=== PATIENT | female | born 1950 | race Caucasian/White ===

== ENCOUNTER → 2016-05-04 | Outpatient (REF) | payer MEDICARE, OTHER ==
[2016-05-04 13:08] LABS: ANION GAP 11 MEQ/L (8-16); BLOOD UREA NITROGEN 23 MG/DL (7-18); CALCIUM LEVEL 8.4 MG/DL (8.8-10.2); CARBON DIOXIDE LEVEL 26 MEQ/L (21-32); CHLORIDE LEVEL 107 MEQ/L (98-107); CHOLESTEROL LEVEL 212 MG/DL (<200); CREATININE FOR GFR 0.65 MG/DL (0.55-1.02); GLOMERULAR FILTRATION RATE > 60.0 (>45); GLUCOSE, FASTING 86 MG/DL (80-110); SODIUM LEVEL 144 MEQ/L (136-145); TRIGLYCERIDES LEVEL 143 MG/DL (<150)
== END ==
LOC: M LABDRAW1 11:29
PROVIDERS: ATTEND Nurse Practitioner Family
DX: I10 Essential (primary) hypertension (principal); E78.4 Other hyperlipidemia; E55.9 Vitamin D deficiency, unspecified

== ENCOUNTER → 2016-10-03 | Outpatient (CLI) | payer MEDICARE, OTHER ==
--- NOTE | 2016-10-03 11:45 | REP ---
Pelvic ultrasound, endovaginal imaging: The patient indicates she has had a hysterectomy at age 28. There is no identifiable uterus. Right ovary: The right ovary is normal size measuring 4.2 x 3.0 x 3.7 cm. There is an echogenic focus with acoustic shadowing compatible with a right ovarian calcification. There are a few small follicles. There is vascular flow in the right ovary with the Doppler resistive index of the intraparenchymal arteries measuring 0.62. Left ovary: The left ovary is normal size measuring 3.2 x 1.8 x 2.6 cm. There is a 1.8 cm left ovarian cyst containing a septation. There is vascular flow in the left over the Doppler resistive index of the intraparenchymal arteries measuring 0.62. There is no free fluid in the pelvis.
--- NOTE | 2016-10-03 11:48 | REP ---
Bladder ultrasound: The distended urinary bladder contains 580 milliliters of fluid. The postvoid bladder contains 54 ml fluid. The postvoid residual is 9.3% No bladder masses or polyps are identified. With color Doppler assessment there are bilateral ureteral jets into the urinary bladder.
== END ==
LOC: M WHC 09:01
PROVIDERS: ATTEND Obstetrics & Gynecology
DX: Z12.31 Encounter for screening mammogram for malignant neoplasm of breast (principal); Z78.0 Asymptomatic menopausal state; N81.11 Cystocele, midline; N81.6 Rectocele; R35.0 Frequency of micturition; M89.9 Disorder of bone, unspecified; Z92.23 Personal history of estrogen therapy
CPT/HCPCS: 76830; 76856; 76857; 77080; G0202

== ENCOUNTER → 2016-10-03 | Outpatient (CLI) | payer MEDICARE, OTHER ==
--- NOTE | 2016-10-03 11:23 | REPMRS ---
Patient History The patient states she had a clinical breast exam in 06/2016. Patient is postmenopausal. Family history of prostate cancer in brother at age 77. Took hormonal contraceptives for 2 years. Taking estrogen for 13 years. Digital Woman Screen Mammo: October 03, 2016 - Exam #: [id number] Bilateral CC and MLO view(s) were taken. Technologist: Guadalupe Evans Technologist Prior study comparison: July 16, 2013, bilateral bilat screen digital mammo, performed at [facility] ([facility]). July 10, 2012, bilateral bilat screen digital mammo, performed at [facility] ([facility]). FINDINGS: There are scattered fibroglandular densities. There has been no change in the appearance of the mammogram from the prior studies. There is a mild amount of residual fibroglandular tissue which is fairly symmetric. There is no interval development of dominant mass, architectural distortion, or clustered microcalcification suggestive of malignancy. ASSESSMENT: BI-RADS/ACR category 1 mammogram. Negative. Recommendation Routine screening mammogram in 1 year (for women over age 40). This mammogram was interpreted with the aid of an FDA-approved computer-aided dectection system. Electronically Signed By: John Randolph MD 10/03/16 [id number]
== END ==
LOC: M WHC 10:01
PROVIDERS: ATTEND Nurse Practitioner Family
DX: Z12.31 Encounter for screening mammogram for malignant neoplasm of breast (principal); Z78.0 Asymptomatic menopausal state; Z92.23 Personal history of estrogen therapy

== ENCOUNTER → 2016-10-03 | Outpatient (CLI) | payer MEDICARE, OTHER ==
--- NOTE | 2016-10-05 14:20 | DEXA ---
AP SPINE L1 - L4 1.096 -0.7 0.9 LT FEMUR TOTAL 0.980 -0.2 1.0 RT FEMUR TOTAL 0.952 -0.4 0.8 TOTAL BODY TOTAL OTHER DUAL FEMUR FRAX* ASSESSMENT Risk factors: Not performed. 10 year probability of fracture Major osteoporotic fracture % Hip fracture % COMMENTS: Normal bone densitometry of the spine and hips. The decreased density of the spine does not represent a significant change. The increased density of the left hip does not represent a significant change. The increased density of the right hip does not represent a significant change. The density of the spine is increased 5.8% since the initial exam on 06/21/2005. The spine density has decreased 0.5% since the most recent exam on 01/12/2015. The density of the left hip has increased 1.7% since the initial exam on 2005. The density of the left hip has increased 0.4% since the most recent exam on . The density of the right hip has increased 2.4% since the initial exam on 2005. The density of the right hip has increased 1.9% since the most recent exam on . FOLLOW-UP: Recommendation for the next bone density exam: 5 years. DARLINED
== END ==
LOC: M WHC 08:57
PROVIDERS: ATTEND Nurse Practitioner Family
DX: M89.9 Disorder of bone, unspecified (principal)

== ENCOUNTER → 2017-03-25 | Outpatient (CLI) | payer MEDICARE, OTHER | LOC: M WUC 15:39 | DX: M19.071 Primary osteoarthritis, right ankle and foot (principal); S93.421A Sprain of deltoid ligament of right ankle, initial encounter; X58.XXXA Exposure to other specified factors, initial encounter; Y92.9 Unspecified place or not applicable | CPT/HCPCS: 73610 ==

== ENCOUNTER → 2017-05-18 | Outpatient (REF) | payer MEDICARE, OTHER | LOC: M LAB REF 17:18 | DX: D48.5 Neoplasm of uncertain behavior of skin (principal) | CPT/HCPCS: 88305 ==

== ENCOUNTER 2017-06-19 22:03 | Observation (INO) | payer MEDICARE, OTHER ==
[2017-06-19] MEDS ORDERED: ISOVUE-370 76% 100ML VIAL (Q9967) As Ordered ×2 (23:07)
[2017-06-19 23:18] LABS: BASO % 0.2 % (0.0-1.0); EOS # 0.1 10^3/uL (0.0-0.50); EOS % 0.6 % (0.0-3.0); HEMATOCRIT 41.1 % (36.0-47.0); HEMOGLOBIN 13.5 g/dl (12.0-15.5); IMMATURE GRANULOCYTE % 0.8 % (0-3.0); LYMPH # 1.5 10^3/uL (1.5-4.5); LYMPH % 13.6 % (24.0-44.0); MEAN CORPUSCULAR HEMOGLOBIN 30.4 pg (27.0-33.0); MEAN CORPUSCULAR HGB CONC 32.8 g/dl (32.0-36.5); MEAN CORPUSCULAR VOLUME 92.6 fl (80.0-96.0); MONO # 0.5 10^3/uL (0.0-0.8); MONO % 4.3 % (0.0-5.0); NEUTROPHILS # 8.7 10^3/uL (1.8-7.7); NEUTROPHILS % 80.5 % (36.0-66.0); PLATELET COUNT, AUTOMATED 277 10^3/uL (150-450); RED BLOOD COUNT 4.44 10^6/uL (4.00-5.40); RED CELL DISTRIBUTION WIDTH 13.4 % (11.5-14.5); WHITE BLOOD COUNT 10.8 10^3/uL (4.0-10.0)
[2017-06-19] MEDS: METOCLOPRAMIDE INJ 10MG/2ML VIAL (J2765) IV ×2 (23:20)
[2017-06-19] MEDS: NS 500 ML IV ×2 (23:20)
[2017-06-19] MEDS ORDERED: MORPHINE 4 MG/ML 1ML VIAL/SYRINGE (J2270) As Ordered ×2 (23:40)
[2017-06-19 23:46] LABS: ALBUMIN 3.5 GM/DL (3.2-5.2); ALBUMIN/GLOBULIN RATIO 1.03 (1.00-1.93); ALKALINE PHOSPHATASE 93 U/L (45-117); ALT/SGPT 15 U/L (12-78); ANION GAP 5 MEQ/L (8-16); AST/SGOT 16 U/L (7-37); BILIRUBIN,DIRECT 0.1 MG/DL (0.0-0.2); BILIRUBIN,TOTAL 0.3 MG/DL (0.2-1.0); BLOOD UREA NITROGEN 21 MG/DL (7-18); CALCIUM LEVEL 8.9 MG/DL (8.8-10.2); CARBON DIOXIDE LEVEL 31 MEQ/L (21-32); CHLORIDE LEVEL 108 MEQ/L (98-107); CREATININE FOR GFR 0.72 MG/DL (0.55-1.30); GLOMERULAR FILTRATION RATE > 60.0 (>45); GLUCOSE, FASTING 103 MG/DL (70-100); LIPASE 134 U/L (73-393); POTASSIUM SERUM 3.7 MEQ/L (3.5-5.1); SODIUM LEVEL 144 MEQ/L (136-145); TOTAL PROTEIN 6.9 GM/DL (6.4-8.2)
[2017-06-19] MEDS: GASTROGRAFIN SOLUTION 30ML PO ×4 (23:48→23:52)
[2017-06-19] MEDS: MORPHINE 4 MG/ML 1ML VIAL/SYRINGE (J2270) IV ×2 (23:52)
[2017-06-20] MEDS: GASTROGRAFIN SOLUTION 30ML PO ×2 (00:15)
[2017-06-20] MEDS: MORPHINE 4 MG/ML 1ML VIAL/SYRINGE (J2270) IV ×8 (00:42→18:56)
[2017-06-20 01:06] LABS: APPEARANCE, URINE CLEAR (CLEAR); BACTERIA, URINE AUTO 1+ (NEGATIVE); BILIRUBIN, URINE AUTO NEGATIVE (NEGATIVE); BLOOD, URINE BLOOD NEGATIVE (NEGATIVE); COLOR, URINE YELLOW (YELLOW); GLUCOSE, URINE (UA) AUTO NEGATIVE (NEGATIVE); KETONE, URINE AUTO NEGATIVE (NEGATIVE); LEUKOCYTE ESTERASE, URINE AUTO NEGATIVE (NEGATIVE); MUCUS, URINE SMALL (NEGATIVE); NITRITE, URINE AUTO NEGATIVE (NEGATIVE); PROTEIN, URINE AUTO NEGATIVE (NEGATIVE); RBC, URINE AUTO 2 /HPF (0-3); SPECIFIC GRAVITY URINE AUTO 1.011 (1.002-1.035); SQUAMOUS EPITHELIAL CELL UR AU 0 /HPF (0-6); UROBILINOGEN, URINE AUTO 0.2 mg/dL (0.0-2.0); WBC, URINE AUTO 3 /HPF (0-3)
[2017-06-20] MEDS: NS 1,000 ML IV ×6 (04:17→14:25)
[2017-06-20] MEDS: ONDANSETRON 4 MG TAB (S0181) PO ×2 (05:37)
[2017-06-20] MEDS: ENOXAPARIN 40 MG/0.4 ML SYRINGE (J1650) SC ×2 (08:43)
[2017-06-20] MEDS ORDERED: MECLIZINE 25 MG TABLET PO ×2 (14:45)
[2017-06-20] MEDS: ESTRADIOL 1 MG TAB PO ×2 (16:52)
[2017-06-20] MEDS: MULTIVITAMINS/MINERALS THERAP 1 TAB PO ×2 (16:53)
[2017-06-20] MEDS: SIMETHICONE 80 MG CHEW TAB PO ×2 (20:20)
[2017-06-20] MEDS: VITAMIN D 1,000 INTERNATIONAL UNITS TABLET PO ×2 (20:21)
[2017-06-20] MEDS: ACETAMINOPHEN TAB 650MG DOSE (2X325MG) PO ×2 (20:45)
[2017-06-21] MEDS: NS 1,000 ML IV ×4 (02:36→18:45)
[2017-06-21] MEDS: ACETAMINOPHEN TAB 650MG DOSE (2X325MG) PO ×4 (02:50→11:44)
[2017-06-21] MEDS: SIMETHICONE 80 MG CHEW TAB PO ×4 (05:16→07:42)
[2017-06-21] MEDS: ONDANSETRON 4 MG TAB (S0181) PO ×2 (07:42)
[2017-06-21 07:49] LABS: HEMATOCRIT 33.8 % (36.0-47.0); MEAN CORPUSCULAR HEMOGLOBIN 30.7 pg (27.0-33.0); MEAN CORPUSCULAR HGB CONC 33.4 g/dl (32.0-36.5); MEAN CORPUSCULAR VOLUME 91.8 fl (80.0-96.0); PLATELET COUNT, AUTOMATED 217 10^3/uL (150-450); RED BLOOD COUNT 3.68 10^6/uL (4.00-5.40); RED CELL DISTRIBUTION WIDTH 13.7 % (11.5-14.5); WHITE BLOOD COUNT 9.8 10^3/uL (4.0-10.0)
[2017-06-21] MEDS: MORPHINE 4 MG/ML 1ML VIAL/SYRINGE (J2270) IV ×2 (07:56)
[2017-06-21 08:10] LABS: HEMOGLOBIN 11.3 g/dl (12.0-15.5)
[2017-06-21 08:55] LABS: ALBUMIN 2.6 GM/DL (3.2-5.2); ALBUMIN/GLOBULIN RATIO 0.76 (1.00-1.93); ALKALINE PHOSPHATASE 69 U/L (45-117); ALT/SGPT 12 U/L (12-78); ANION GAP 5 MEQ/L (8-16); AST/SGOT 37 U/L (7-37); BILIRUBIN,TOTAL 1.5 MG/DL (0.2-1.0); BLOOD UREA NITROGEN 15 MG/DL (7-18); CALCIUM LEVEL 7.9 MG/DL (8.8-10.2); CARBON DIOXIDE LEVEL 23 MEQ/L (21-32); CHLORIDE LEVEL 113 MEQ/L (98-107); CREATININE FOR GFR 0.42 MG/DL (0.55-1.30); GLOMERULAR FILTRATION RATE > 60.0 (>45); GLUCOSE, FASTING 98 MG/DL (70-100); POTASSIUM SERUM 3.4 MEQ/L (3.5-5.1); SODIUM LEVEL 141 MEQ/L (136-145)
[2017-06-21 09:09] LABS: CK-MB VALUE MASS < 1.0 NG/ML (<3.6); CPK CREATINE PHOSPHOKINASE 43 U/L (26-192); MAGNESIUM LEVEL 2.3 MG/DL (1.8-2.4); MB/CK RELATIVE INDEX 2.32 (< OR =4); TROPONIN I < 0.02 NG/ML (< 0.10)
[2017-06-21] MEDS: ENOXAPARIN 40 MG/0.4 ML SYRINGE (J1650) SC ×2 (09:15)
[2017-06-21] MEDS: MULTIVITAMINS/MINERALS THERAP 1 TAB PO ×2 (09:15)
[2017-06-21] MEDS: ESTRADIOL 1 MG TAB PO ×2 (09:15)
[2017-06-21] MEDS: POTASSIUM CHLORIDE 10 MEQ SR TABLET PO ×2 (11:44)
[2017-06-21 12:55] LABS: ERYTHROCYTE SEDIMENTATION RATE 49 mm/hr (0-30)
[2017-06-21] MEDS: EXCEDRIN MIGRAINE TABLET PO ×2 (16:35)
[2017-06-21] MEDS: VITAMIN D 1,000 INTERNATIONAL UNITS TABLET PO ×2 (21:20)
[2017-06-22] MEDS: NS 1,000 ML IV ×2 (06:38)
[2017-06-22 07:05] LABS: HEMOGLOBIN 11.1 g/dl (12.0-15.5); MEAN CORPUSCULAR HEMOGLOBIN 31.2 pg (27.0-33.0); MEAN CORPUSCULAR HGB CONC 33.6 g/dl (32.0-36.5); MEAN CORPUSCULAR VOLUME 92.7 fl (80.0-96.0); PLATELET COUNT, AUTOMATED 216 10^3/uL (150-450); RED BLOOD COUNT 3.56 10^6/uL (4.00-5.40); RED CELL DISTRIBUTION WIDTH 13.8 % (11.5-14.5)
[2017-06-22 07:30] LABS: ALBUMIN 2.6 GM/DL (3.2-5.2); ALBUMIN/GLOBULIN RATIO 0.93 (1.00-1.93); ALKALINE PHOSPHATASE 84 U/L (45-117); ALT/SGPT 10 U/L (12-78); ANION GAP 8 MEQ/L (8-16); AST/SGOT 33 U/L (7-37); BILIRUBIN,TOTAL 1.1 MG/DL (0.2-1.0); BLOOD UREA NITROGEN 9 MG/DL (7-18); CALCIUM LEVEL 7.5 MG/DL (8.8-10.2); CARBON DIOXIDE LEVEL 22 MEQ/L (21-32); CHLORIDE LEVEL 113 MEQ/L (98-107); CREATININE FOR GFR 0.33 MG/DL (0.55-1.30); GLOMERULAR FILTRATION RATE > 60.0 (>45); GLUCOSE, FASTING 68 MG/DL (70-100); POTASSIUM SERUM 3.7 MEQ/L (3.5-5.1); SODIUM LEVEL 143 MEQ/L (136-145); TOTAL PROTEIN 5.4 GM/DL (6.4-8.2)
[2017-06-22] MEDS: ENOXAPARIN 40 MG/0.4 ML SYRINGE (J1650) SC ×2 (09:40)
[2017-06-22] MEDS: ESTRADIOL 1 MG TAB PO ×2 (09:40)
[2017-06-22] MEDS: MULTIVITAMINS/MINERALS THERAP 1 TAB PO ×2 (09:40)
[2017-06-23 13:08] LABS: CARCINOEMBRYONIC ANTIGEN 2.9 NG/ML (<2.5)
[2017-06-23 15:35] LABS: CA19-9 TUMOR MARKER,CARBOHYDRA 1590.1 U/ML (<35.0)
== END 2017-06-22 14:20 | disposition home or self-care (01) ==
LOC: M ED INP 22:04 → M PED 06-20 05:47 → M ED 22:03
DX: R19.09 Other intra-abdominal and pelvic swelling, mass and lump (principal); R10.9 Unspecified abdominal pain; R11.2 Nausea with vomiting, unspecified; I10 Essential (primary) hypertension; E78.00 Pure hypercholesterolemia, unspecified; I08.0 Rheumatic disorders of both mitral and aortic valves; H83.09 Labyrinthitis, unspecified ear; Z85.828 Personal history of other malignant neoplasm of skin; M85.80 Other specified disorders of bone density and structure, unspecified site; E55.9 Vitamin D deficiency, unspecified; Z88.1 Allergy status to other antibiotic agents; Z88.8 Allergy status to other drugs, medicaments and biological substances; Z88.0 Allergy status to penicillin; Z91.018 Allergy to other foods; Z79.899 Other long term (current) drug therapy
CPT/HCPCS: J2270

== ENCOUNTER → 2017-08-09 | Outpatient (CLI) | payer MEDICARE, OTHER | LOC: M RAD 07:00 | DX: R19.03 Right lower quadrant abdominal swelling, mass and lump (principal) | CPT/HCPCS: 76857 ==

== ENCOUNTER → 2017-09-14 | Outpatient (REF) | payer MEDICARE, OTHER | LOC: M LAB REF 17:15 | DX: L08.9 Local infection of the skin and subcutaneous tissue, unspecified (principal) | CPT/HCPCS: 87186 ==

== ENCOUNTER → 2017-11-15 | Outpatient (REF) | payer MEDICARE, OTHER ==
[2017-11-15 12:42] LABS: BASO % 0.4 % (0.0-1.0); EOS # 0.1 10^3/uL (0.0-0.50); EOS % 2.2 % (0.0-3.0); HEMATOCRIT 40.6 % (36.0-47.0); HEMOGLOBIN 13.3 g/dl (12.0-15.5); IMMATURE GRANULOCYTE % 0.6 % (0-3.0); LYMPH # 1.3 10^3/uL (1.5-4.5); LYMPH % 25.4 % (24.0-44.0); MEAN CORPUSCULAR HEMOGLOBIN 30.2 pg (27.0-33.0); MEAN CORPUSCULAR HGB CONC 32.8 g/dl (32.0-36.5); MEAN CORPUSCULAR VOLUME 92.1 fl (80.0-96.0); MONO # 0.4 10^3/uL (0.0-0.8); MONO % 7.7 % (0.0-5.0); NEUTROPHILS # 3.2 10^3/uL (1.8-7.7); NEUTROPHILS % 63.7 % (36.0-66.0); PLATELET COUNT, AUTOMATED 265 10^3/uL (150-450); RED BLOOD COUNT 4.41 10^6/uL (4.00-5.40); RED CELL DISTRIBUTION WIDTH 13.5 % (11.5-14.5)
[2017-11-15 13:12] LABS: ERYTHROCYTE SEDIMENTATION RATE 10 mm/hr (0-30)
[2017-11-15 13:47] LABS: RHEUMATOID FACTOR QUANT < 10.0 IU/ML (<15.0)
[2017-11-15 13:47] LABS: URIC ACID 4.2 MG/DL (2.6-6.0)
== END ==
LOC: M LABDRAW1 11:42
DX: M70.62 Trochanteric bursitis, left hip (principal)
CPT/HCPCS: 84550

== ENCOUNTER → 2018-03-08 | Outpatient (CLI) | payer MEDICARE, OTHER ==
[~2018-03-08] MED LIST: ANUC25SU PR; D 50CAP PO; DICY20TA11 PO; ESTR1TAB PO; MECL-86 PO; NORV2TAB PO; ONDA4TAB5 PO; PATA0.2S OU; REST0.05 OU; RHIN32SU; VITA500T53 PO; VITMTA PO
--- NOTE | 2018-03-08 10:48 | REPMRS ---
Patient History The patient states she had a clinical breast exam in 07/2017. Patient is postmenopausal and has history of Basal Cell cancer at age 65. Family history of prostate cancer at age 77 in brother. Took hormonal contraceptives for 2 years. Taking estrogen for 14 years 5 months. Digital Woman Screen Mammo: March 08, 2018 - Exam #: [id number] Bilateral CC and MLO view(s) were taken. Technologist: Guadalupe Evans Technologist Prior study comparison: October 03, 2016, digital woman screen mammo performed at [facility]. August 07, 2015, bilateral digital woman screen mammo, performed at [facility]. August 05, 2014, bilateral digital woman screen mammo, performed at [facility]. FINDINGS: There are scattered fibroglandular densities. There has been no change in the appearance of the mammogram from the prior studies. There is a mild amount of scattered fibroglandular density which is fairly symmetric. There is no interval development of dominant mass, architectural distortion, or clustered microcalcification suggestive of malignancy. 3-D tomosynthesis shows no additional findings. Assessment: BI-RADS/ACR category 1 mammogram. Negative. Recommendation Routine screening mammogram of both breasts in 1 year (for women over age 40). This patient's Lifetime Breast Cancer RIsk is estimated at 3.9 %. This mammogram was interpreted with the aid of an FDA-approved computer-aided dectection system. Electronically Signed By: Gilberto Hoover MD 03/08/18 0800
== END ==
LOC: M WHC 09:58
PROVIDERS: ATTEND Nurse Practitioner Family
DX: Z12.31 Encounter for screening mammogram for malignant neoplasm of breast (principal); Z78.0 Asymptomatic menopausal state; Z92.0 Personal history of contraception; Z92.23 Personal history of estrogen therapy

== ENCOUNTER → 2018-06-26 | Outpatient (REF) | payer MEDICARE, OTHER ==
[~2018-06-26] MED LIST changes: +VITA500T17 PO; -VITA500T53 PO
[2018-06-27 14:34] LABS: SSA SJOGRENS A <0.2 AI (0.0-0.9); SSB SJOGRENS B <0.2 AI (0.0-0.9)
== END ==
LOC: M SFHCPLAZ 08:56
PROVIDERS: ATTEND Internal Medicine Rheumatology
DX: R79.82 Elevated C-reactive protein (CRP) (principal); H04.129 Dry eye syndrome of unspecified lacrimal gland
CPT/HCPCS: 36415; 86140; 86235; G0463

== ENCOUNTER → 2018-07-30 | Outpatient (REF) | payer MEDICARE, OTHER | LOC: M SFHCWAGY 12:23 | PROVIDERS: ATTEND Nurse Practitioner Family | DX: Z12.72 Encounter for screening for malignant neoplasm of vagina (principal) | CPT/HCPCS: 81002; G0101; G0123 ==

== ENCOUNTER → 2019-09-24 | Outpatient (CLI) | payer MEDICARE, OTHER ==
[~2019-09-24] MED LIST changes: +OLOP2.5D3 OU; +ONDA-83 PO; -ONDA4TAB5 PO; -PATA0.2S OU
--- NOTE | 2019-10-18 09:20 | REPMRS ---
Patient History The patient states she had a clinical breast exam in 07/2019. Patient has history of other cancer at age 65. Family history of prostate cancer at age 77 in brother. Took hormonal contraceptives for 2 years. Taking estrogen for 14 years 5 months. Digital Woman Screen Mammo: September 24, 2019 - Exam #: [id number] Bilateral CC and MLO view(s) were taken. Technologist: Candice Dinh, Technologist Prior study comparison: March 08, 2018, bilateral digital woman screen mammo performed at [facility]. October 03, 2016, digital woman screen mammo performed at [facility]. July 16, 2013, bilateral bilat screen digital mammo, performed at [facility] ([facility] FINDINGS: There are scattered fibroglandular densities. The Volpara volumetric breast density category is:B. There has been no change in the appearance of the mammogram from the prior studies. There is a mild amount of scattered fibroglandular density which is fairly symmetric. There is no interval development of dominant mass, architectural distortion, or grouped microcalcification suggestive of malignancy. 3-D tomosynthesis shows no additional findings. Report was delayed due to a protracted computer network disruption experienced by this facility. Assessment: BI-RADS/ACR category 1 mammogram. Negative Mammogram. Recommendation Routine screening mammogram of both breasts in 1 year (for women over age 40). This patient's Lifetime Breast Cancer Risk is estimated at 4.5 %. This mammogram was interpreted with the aid of an FDA-approved computer-aided dectection system. Electronically Signed By: Gilberto Hoover MD 10/18/19 0919
== END ==
LOC: M WHC 17:05
PROVIDERS: ATTEND Nurse Practitioner Family
DX: Z12.31 Encounter for screening mammogram for malignant neoplasm of breast (principal); Z85.9 Personal history of malignant neoplasm, unspecified

== ENCOUNTER → 2019-10-10 | Outpatient (CLI) | payer MEDICARE, OTHER | LOC: M LABSMTC 14:00 | PROVIDERS: ATTEND Family Medicine | DX: Z11.59 Encounter for screening for other viral diseases (principal) | CPT/HCPCS: C9803; U0003 ==

== ENCOUNTER → 2020-03-15 | Outpatient (CLI) | payer SELFPAY | LOC: M LABSMTC 10:02 | PROVIDERS: ATTEND Pediatrics | DX: Z20.822 Contact with and (suspected) exposure to COVID-19 (principal) ==

== ENCOUNTER 2020-05-28 11:12 | Emergency (ER) | payer MEDICARE, OTHER ==
[~2020-05-28] VITALS: Ht 157.5 cm; Wt 67.0 kg
--- NOTE | 2020-05-28 12:07 | REP ---
INDICATION: CHEST PAIN. COMPARISON: 01/04/2016. TECHNIQUE: SINGLE PORTABLE AP VIEW OF THE CHEST WAS PERFORMED. FINDINGS: THERE IS NO ACUTE INFILTRATE OR PULMONARY EDEMA. LUNGS ARE CLEAR. HEART IS NOT SIGNIFICANTLY ENLARGED. MEDIASTINAL SILHOUETTE IS UNREMARKABLE. THE VISUALIZED OSSEOUS STRUCTURES ARE INTACT. IMPRESSION: NO ACUTE PULMONARY DISEASE. <Electronically signed by John Randolph > 05/28/20 [id number]
[2020-05-28 12:33] LABS: BASO % 0.6 % (0.0-1.0); EOS # 0.1 10^3/uL (0.0-0.5); EOS % 1.1 % (0.0-3.0); HEMATOCRIT 42.6 % (36.0-47.0); HEMOGLOBIN 13.9 g/dl (12.0-15.5); LYMPH # 1.3 10^3/uL (1.5-5.0); LYMPH % 27.5 % (24.0-44.0); MEAN CORPUSCULAR HEMOGLOBIN 30.6 pg (27.0-33.0); MEAN CORPUSCULAR HGB CONC 32.6 g/dl (32.0-36.5); MEAN CORPUSCULAR VOLUME 93.8 fl (80.0-96.0); MONO # 0.5 10^3/uL (0.0-0.8); MONO % 9.5 % (2.0-8.0); NEUTROPHILS # 2.9 10^3/uL (1.5-8.5); NEUTROPHILS % 60.9 % (36.0-66.0); PLATELET COUNT, AUTOMATED 254 10^3/uL (150-450); RED BLOOD COUNT 4.54 10^6/uL (4.00-5.40); WHITE BLOOD COUNT 4.7 10^3/uL (4.0-10.0)
--- NOTE | 2020-05-28 12:36 | REP ---
INDICATION: ?pulsatile mass. COMPARISON: CT abdomen pelvis with reconstructions 06/20/2017 TECHNIQUE: Abdominal aortic ultrasound scanning. FINDINGS: Abdominal aorta shows the maximum diameters as follows: Proximal at diaphragm: 2.6 cm AP x 2.1 cm transverse At renal artery level: 2 cm AP x 1.9 cm transverse Mid aorta: 2 cm AP x 1.9 cm transverse Distal aorta: 1.8 cm AP x 1.9 cm transverse Both common iliac arteries have maximum diameter 1 cm I do not see significant atheromatous plaque IMPRESSION: 1. Abdominal aorta with maximum diameter 2.6 cm proximally and tapering to 1.8 cm at the bifurcation. No aneurysm or other abnormality. Normal exam. <Electronically signed by Kevin Hill > 05/28/20 [id number]
[2020-05-28 13:14] LABS: ALBUMIN 3.7 GM/DL (3.2-5.2); BILIRUBIN,DIRECT 0.1 MG/DL (0.0-0.2); BILIRUBIN,TOTAL 0.5 MG/DL (0.2-1.0); THYROID STIMULATING HORMONE 2.1 uIU/ML (0.358-3.740); TOTAL PROTEIN 6.8 GM/DL (6.4-8.2)
[2020-05-28 14:32] VITALS: BP 145/76
--- NOTE | 2020-05-29 06:29 | ECGEPIP ---
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
== END 2020-05-28 14:30 | disposition home or self-care (01) ==
LOC: M ED 11:12
DX: M54.5 Low back pain (principal); R42 Dizziness and giddiness; I10 Essential (primary) hypertension; E78.5 Hyperlipidemia, unspecified; Z85.41 Personal history of malignant neoplasm of cervix uteri; Z88.0 Allergy status to penicillin; Z88.1 Allergy status to other antibiotic agents; Z88.5 Allergy status to narcotic agent; Z79.899 Other long term (current) drug therapy; Z79.890 Hormone replacement therapy

== ENCOUNTER → 2020-09-23 | Outpatient (CLI) | payer MEDICARE, OTHER ==
--- NOTE | 2020-09-23 11:06 | REP ---
INDICATION: DEBI SCR MAMMO Z12.31. COMPARISON: Multiple TECHNIQUE: Digital screening mammography was carried out bilaterally in the CC and MLO projections using both 2D and 3D modalities and compared to the prior exams. By history, the patient has no complaints of a palpable breast abnormality or other significant breast complaints. FINDINGS: The breasts are unchanged in size and shape. Scattered dense heterogenous fibroglandular elements are again seen bilaterally. In the right breast near the 12 o'clock position there is a potential angelica asymmetric density. No other suspicious features are seen in either breast. There are benign calcifications status quo. There is no skin thickening or nipple retraction. The Volpara volumetric breast density pattern is b. IMPRESSION: BIRADS/ACR category 0 mammogram. Potential angelica asymmetric density seen in the right breast as described above and for which diagnostic digital spot compression views are recommended in the CC and MLO projections. The spot compression view should be obtained using DBT technique. Ultrasonography might also be required. This patient's Tyrer-Cuzick lifetime breast cancer risk assessment score is 4.3%. This mammogram was interpreted with the aid of an FDA-approved computer-aided detection system. The patient states she had a clinical breast exam in August 2020. The patient letter being requested is M0. RECOMMENDATION: As above). <Electronically signed by Adolfo Cardenas > 09/23/20 [id number]
== END ==
LOC: M WHC 08:44
PROVIDERS: ATTEND Nurse Practitioner Women's Health
DX: Z01.419 Encounter for gynecological examination (general) (routine) without abnormal findings (principal); R92.2 Inconclusive mammogram; N95.9 Unspecified menopausal and perimenopausal disorder; N81.10 Cystocele, unspecified; Z90.710 Acquired absence of both cervix and uterus
CPT/HCPCS: 77063; 77067; G0101

== ENCOUNTER → 2020-10-06 | Outpatient (CLI) | payer MEDICARE, OTHER ==
--- NOTE | 2020-10-06 16:19 | REP ---
INDICATION: ADDL VIEWS/RIGHT BREAST-DINESH DENSITY. Screening mammography from September 23, 2020 was BI-RADS category 0 incomplete because of a possible asymmetric density in the upper-outer quadrant of the right breast. Diagnostic imaging was recommended. COMPARISON: Comparison mammography is also reviewed from September 24, 2019 and March 08, 2018. TECHNIQUE: Magnified focal spot-compression CC MLO views of the right breast were obtained. A non magnified true mL view of the right breast is obtained with 3D tomography. Targeted right breast sonography is carried out. This mammogram was interpreted with the aid of an FDA-approved computer-aided detection system. FINDINGS: Scattered fibroglandular elements are again noted. The area in question in the upper outer quadrant middle 3rd right breast compresses away to stromal elements which are felt to be unchanged from remote prior mammography dating back to 2012. However, the craniocaudal magnified CC view demonstrates a rounded retroareolar breast mass 9 mm in diameter. This is seen with less confidence on the orthogonal views but is believed to be superior, at approximately 12 o'clock position. The Volpara volumetric breast density pattern is b. Targeted ultrasound: Targeted right breast sonography is carried out in the 11-12 o'clock position in the right breast. There is a hypoechoic nodule at 12 o'clock position with posterior acoustic shadowing 2 cm from the nipple measuring 8 x 7 x 8 mm. This has a somewhat elevated elastography shear wave number of 56 K PA. This is considered suspicious. IMPRESSION: BIRADS/ACR category 4 suspicious right breast mammographic and sonographic findings. This patient's Tyrer-Cuzick lifetime breast cancer risk assessment score is 4.3%. RECOMMENDATION: Ultrasound-guided needle biopsy retroareolar mass 12 o'clock position right breast with marker clip placement and post clip placement right breast mammography recommended.. The patient letter being requested is M4. <Electronically signed by Gilberto Hoover > 10/06/20 7113
== END ==
LOC: M WHC 14:23
PROVIDERS: ATTEND Nurse Practitioner Women's Health
DX: Z12.31 Encounter for screening mammogram for malignant neoplasm of breast (principal); N64.59 Other signs and symptoms in breast
CPT/HCPCS: 76642; 77065; G0279

== ENCOUNTER → 2020-10-14 | Outpatient (CLI) | payer MEDICARE, OTHER ==
[~2020-10-14] MED LIST changes: +FOLI1TAB11 PO
[2020-10-14 13:49] VITALS: BP 138/74
--- NOTE | 2020-10-20 20:15 | ROOPDOC ---
[facility] Report Of Operation Report of Operation DATE OF PROCEDURE: 10/14/20 DIAGNOSIS: right breast suspicious lesion PROCEDURE: ultrasound guided biopsy of the right breast suspicious lesion with clip placement SURGEON: Mario Albrecht BLOOD LOSS: minimal COMPLICATIONS: none Lidocaine 1% LOT [id number] Expiration 03/2024 Sodium Bicarbonate 8.4% LOT [id number] Expiration 03/2021 Hydromark clip LOT [id number] Expiration 05/2023 SHAPE: 3 Bx device: BARD [id number] x10 cm LOT [id number] Expiration 05/2023 Informed consent was obtained. The most common risk and possible complications including bleeding, hematoma, bruising, infection, injury to surrounding structures were explained to the patient and the patient expressed understanding. Patient was placed on the bed in the supine position. Appropriate time out was done stating patients name, date of , and the procedure to be performed. The right breast was prepped and draped in the usual fashion. The ultrasound was used to confirm the location of the lesion in the right breast at 12:00 2 centimeters from the nipple. Plain Lidocaine 1% and 8.4% sodium bicarbonate 10:1 mix was used to anesthetize the skin, the biopsy site and tissues along the anticipated biopsy tract. Small skin incision was made with blade number 11. BARD Marquee 14G cannula with introducer ([id number]) was inserted through the incision and advanced under the ultrasound guidance to position immediately adjacent to the lesion. Next, the introducer was removed and BARD Marquee 14G biopsy device was places in the cannula. Pre-biopsy imaging, and post-biopsy imaging were captured. Five good core biopsies were taken at various levels of the lesion. Specimen was placed in formaldehyde, labeled with appropriate biopsy site and patients name, and sent to pathology for evaluation. Next, the biopsy device was withdrawn and a clip introducer was inserted into the biopsy site via the cannula. SHAPE 3 Hydromark clip was deployed under sonographic guidance. Post-clip placement image was captured. Manual pressure over the biopsy cavity and tract was held after the clip introducer was withdrawn. No bleeding was noted upon removal of the pressure. Post-biopsy mammogram of the right breast was obtained and showed clip in expected position. Postprocedural dressing was placed. Patient tolerated procedure well. Discharge instructions were discussed with the patient and the patient expressed understanding. MARIO ALBRECHT DO Oct 20, 2020 20:15
== END ==
LOC: M WHCPRO 06:25
PROVIDERS: ATTEND Surgery
DX: C50.211 Malignant neoplasm of upper-inner quadrant of right female breast (principal)

== ENCOUNTER → 2020-10-23 | Outpatient (CLI) | payer MEDICARE, OTHER ==
[2020-10-23 16:28] LABS: BLOOD UREA NITROGEN 26 MG/DL (7-18); CALCIUM LEVEL 9.4 MG/DL (8.8-10.2); CARBON DIOXIDE LEVEL 28 MEQ/L (21-32); CHLORIDE LEVEL 110 MEQ/L (98-107); CREATININE FOR GFR 0.61 MG/DL (0.55-1.30); GLOMERULAR FILTRATION RATE > 60.0 (>45); GLUCOSE, FASTING 88 MG/DL (70-100); POTASSIUM SERUM 4.3 MEQ/L (3.5-5.1); SODIUM LEVEL 143 MEQ/L (136-145)
== END ==
LOC: M PLALAB 12:51
PROVIDERS: ATTEND Surgery
DX: C50.911 Malignant neoplasm of unspecified site of right female breast (principal)

== ENCOUNTER → 2020-10-30 | Outpatient (CLI) | payer MEDICARE, OTHER ==
[~2020-10-30] MED LIST changes: +PROHANCE 279.3MG/ML 15ML VIAL As Ordered ONE
--- NOTE | 2020-10-30 17:16 | REP ---
INDICATION: MALIGNANT NEOPLASM OF UNSP SITE OF RIGHT FEMALE BR. COMPARISON: Mammogram 09/23/2020, 10/06/2020, ultrasound 10/06/2020. TECHNIQUE: Three Amarilys MRI imaging was performed with a dedicated breast coil. Axial, coronal, and sagittal T1 and T2 weighted scans were obtained with and without fat saturation in the usual fashion. The study includes dynamically acquired post gadolinium-enhanced imaging with image subtraction. Maximum intensity projection and multi planar reformation imaging is included as well. This study is interpreted with the aid of [employer]ics, an FDA approved computer aided detection (CAD) software program, on a dedicated breast MRI workstation. The gadolinium enhancement dose is 12 mL of intravenous ProHance. FINDINGS: There is mild fibroglandular tissue bilaterally. No significantly enlarged lymph nodes are present in either axilla. There is no significant cystic change seen in either breast. There is mild background parenchymal enhancement bilaterally. A biopsy clip is seen at 12 o'clock right breast, at the site of the recent biopsy. Focal irregular nodular enhancement at this location has a diameter of 8 mm and corresponds to the biopsied nodule. No other suspicious enhancing mass, nodule or morphologic abnormality is seen bilaterally. IMPRESSION: BI-RADS category 6, known right breast cancer. There is an irregular enhancing 8 mm nodule at 12 o'clock right breast with an associated biopsy clip at that location. No other evidence of suspicious enhancing mass or morphologic abnormality bilaterally. <Electronically signed by John Randolph > 10/30/20 [id number]
== END ==
LOC: M RAD 14:42
PROVIDERS: ATTEND Surgery
DX: C50.911 Malignant neoplasm of unspecified site of right female breast (principal)
CPT/HCPCS: A9576; C8908

== ENCOUNTER → 2020-11-05 | Outpatient (CLI) | payer MEDICARE, OTHER ==
[~2020-11-05] MED LIST changes: +D31000TA2 PO; -PROHANCE 279.3MG/ML 15ML VIAL As Ordered ONE
--- NOTE | 2020-11-05 22:56 | ECGEPIP ---
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 No remarkable changes Electronically Signed on 11-05-2020 22:56:36 EDT by Ko Gerard
== END ==
LOC: M EKG 10:47
PROVIDERS: ATTEND Family Medicine
DX: Z01.818 Encounter for other preprocedural examination (principal); Z11.52 Encounter for screening for COVID-19
CPT/HCPCS: 93005; U0003

== ENCOUNTER → 2020-11-05 | Outpatient (CLI) | payer MEDICARE, OTHER ==
[~2020-11-05] MED LIST changes: -D31000TA2 PO
== END ==
LOC: M LABSMTC 09:21
PROVIDERS: ATTEND Anesthesiology
DX: Z01.818 Encounter for other preprocedural examination (principal); Z11.52 Encounter for screening for COVID-19

== ENCOUNTER → 2020-11-09 | Outpatient (CLI) | payer MEDICARE, OTHER ==
[~2020-11-09] MED LIST changes: +CITA10TA5 PO; +D31000TA2 PO; +ROXI1TAB2 PO
--- NOTE | 2020-11-09 15:52 | REP ---
INDICATION: ENCOUNTER FOR OTHER PREPROCEDURAL EXAMINATION COMPARISON: 05/28/2020 as well as other prior exams. TECHNIQUE: PA/Lateral FINDINGS: Lungs: Clear, no infiltrate. Heart: Normal in size. Mediastinum: Mediastinal silhouette unremarkable. Pleural angles: Unremarkable.. Bones and soft tissues: Unremarkable. IMPRESSION: No acute pulmonary disease. <Electronically signed by John Randolph > 11/09/20 [id number]
== END ==
LOC: M PLAIMG 15:33
PROVIDERS: ATTEND Family Medicine
DX: Z01.818 Encounter for other preprocedural examination (principal)

== ENCOUNTER 2020-11-10 06:39 | Day surgery (SDC) | payer MEDICARE, OTHER ==
[~2020-11-10] VITALS: Ht 157.5 cm; Wt 64.8 kg
[~2020-11-10 06:39] MED LIST changes: -CITA10TA5 PO; -ROXI1TAB2 PO
[2020-11-10] MEDS ORDERED: CLINDAMYCIN 900 MG in IV 1 EA IV ONE (06:45)
[2020-11-10] MEDS ORDERED: HEPARIN SOD (PORCINE) 5000UNITS/ML 1ML VIAL/SYRINGE SQ ONE (06:45)
[2020-11-10] MEDS ORDERED: LR 1,000 ML IV ONE (06:50)
[2020-11-10] MEDS ORDERED: CITA10TA5 PO (07:26)
[2020-11-10] MEDS ORDERED: fentaNYL 100 MCG/2 ML INJECTION (J3010) As Ordered ONE (07:59)
[2020-11-10 09:32] LABS: HEMATOCRIT 44.7 % (36.0-47.0); HEMOGLOBIN 14.6 g/dl (12.0-15.5); MEAN CORPUSCULAR HGB CONC 32.7 g/dl (32.0-36.5); PLATELET COUNT, AUTOMATED 234 10^3/uL (150-450); RED BLOOD COUNT 4.86 10^6/uL (4.00-5.40); WHITE BLOOD COUNT 4.9 10^3/uL (4.0-10.0)
[2020-11-10] MEDS ORDERED: LIDOCAINE 1% SDV 30ML VIAL As Ordered ONE (09:41)
[2020-11-10] MEDS ORDERED: BUPIVACAINE HCL 0.25% 30ML VIAL As Ordered ONE (09:41)
[2020-11-10 09:51] LABS: ALBUMIN 3.9 GM/DL (3.2-5.2); ALT/SGPT 24 U/L (12-78); BILIRUBIN,TOTAL 0.7 MG/DL (0.2-1.0); BLOOD UREA NITROGEN 22 MG/DL (7-18); CALCIUM LEVEL 9.4 MG/DL (8.8-10.2); CARBON DIOXIDE LEVEL 28 MEQ/L (21-32); CHLORIDE LEVEL 109 MEQ/L (98-107); GLOMERULAR FILTRATION RATE > 60.0 (>45); GLUCOSE, FASTING 89 MG/DL (70-100); POTASSIUM SERUM 3.7 MEQ/L (3.5-5.1); SODIUM LEVEL 141 MEQ/L (136-145); TOTAL PROTEIN 7.6 GM/DL (6.4-8.2)
[2020-11-10] MEDS ORDERED: METHYLENE BLUE 0.5% (5MG/ML) 10 ML AMP (PROVAYBLUE) As Ordered ONE (10:10)
[2020-11-10] MEDS ORDERED: dexameTHASONE 4 MG/ML 1ML VIAL (J1100 PER 1MG) As Ordered ONE (10:25)
[2020-11-10] MEDS ORDERED: ACETAMINOPHEN 1000MG 100ML IV BTL (OFIRMEV) (J0131 PER 10MG) As Ordered ONE (10:25)
[2020-11-10] MEDS ORDERED: LIDOCAINE 2% 100MG/5ML SDV (FOR ANES.) As Ordered ONE (10:38)
[2020-11-10] MEDS ORDERED: propofoL 200 MG/20 ML VIAL As Ordered ONE (10:38)
[2020-11-10] MEDS ORDERED: ONDANSETRON 4MG/2ML VIAL As Ordered ONE (10:38)
[2020-11-10] MEDS ORDERED: PHENYLEPHRINE 10MG/ML 1ML VIAL (J2370 PER 1) As Ordered ONE (11:05)
[2020-11-10] MEDS ORDERED: ePHEDrine SULFATE 25 MG/5 ML(5MG/ML) SYRINGE As Ordered ONE (11:21)
[2020-11-10] MEDS ORDERED: ROXI1TAB2 PO (13:48)
[2020-11-10] MEDS ORDERED: fentaNYL 100 MCG/2 ML INJECTION (J3010) IV PRN (14:15)
[2020-11-10] MEDS ORDERED: oxyCODONE 5MG TAB PO PRN (14:15)
[2020-11-10] MEDS ORDERED: ONDANSETRON 4MG/2ML VIAL IV PRN (14:15)
[2020-11-10] MEDS ORDERED: HYDROMORPHONE HCL 0.5 MG/ 0.5 ML SYRINGE (J1170 PER 1) IV PRN (14:15)
[2020-11-10] MEDS ORDERED: LR 1,000 ML IV SCH (14:15)
[2020-11-10 15:35] VITALS: BP 109/64
--- NOTE | 2020-11-10 16:44 | REP ---
INDICATION: right breast pre op. COMPARISON: None. TECHNIQUE: The procedure was performed under the direct supervision of Dr. Randolph. The images were reviewed with Dr. Randolph. The risks and benefits of the procedure were explained to the patient and informed consent was obtained. Using topical anesthetic and sterile technique 1.02 mCi of technetium 99 filtered sulfur colloid was injected subdermally in 8 fractionated periareolar injections. Images obtained 1 hour after injection show a dominant focus of uptake in the right axilla. FINDINGS: There is a dominant focus of uptake in the right axilla. IMPRESSION: Right breast lymphoscintigraphy with a dominant focus of uptake in the right axilla.. <Electronically signed by Bong Leyva > 11/10/20 1448 <Electronically signed by John Randolph > 11/10/20 [id number]
--- NOTE | 2020-11-10 20:05 | ROOPDOC ---
[facility] Report Of Operation Report of Operation DATE OF PROCEDURE: 11/10/20 PREPROCEDURE DIAGNOSES: Right breast cancer POSTPROCEDURE DIAGNOSES: same PROCEDURE PERFORMED: Right breast lumpectomy with intraop wire placement, right sentinel lymph node biopsy, intraop radiography of the specimen SURGEON: Dr Mario Albrecht ANESTHESIA: general ESTIMATED BLOOD LOSS: Approximately 25 mL. COMPLICATIONS: none FINDINGS: spiculated mass with adjacent clip and wire seen in specimen PROCEDURE NOTE: INDICATIONS: Ms. Linares is a 69-year-old woman who was found to have a suspicious right breast mass on mammogram. This was evaluated with right breast US and sonographic correlate was found. US guided biopsy of the right breast mass came back as IDC, ER +, VA+, HER-2 negative. Patient had MRI of the breast which did not show any additional suspicious lesions. She opted for breast conservative surgery with sentinel lymph node biopsy on the right side. She was medically cleared for surgery by her primary care doctor. Risks and possible complications of surgical procedure including bleeding, i nfection and injury to surrounding structures were explained to the patient and she wished to proceed. Consent was signed. My initials were placed on the operative site. Subcutaneous injection of 5000 units of heparin was done in Preop. The injection of radioactive tracer was done in radiology department preoperatively. Lymphoscintigraphy imaging was reviewed in preop. DETAILS: Patient was taken to the operating room and placed on the operating room table. A sign in was called stating patients name, date of and the procedure to be done. Preoperative antibiotics were infused. Smooth induction of general anesthesia was done. Patients hands were extended on arm rests. Care was taken not to over extend the arms. Pillow was placed under the knees and a foam was placed under the heels. Sequential compression devices were placed and assured to function correctly. Procedure was started with right breast intraop wire localization. Appropriate time out was done and patients name, date of , and the procedure to be done were confirmed. Right breast was cleaned by me. Intraoperative ultrasound was used to confirm location of the Hydromark clip and the hypoechoic mass. Location of the clip was marked on the skin as well. 21 G Kopans Breast Lesion Localization Needle was used to place 25 cm wire through the lesion and clip. The end of the wire was passed a centimeter deep to the lesion. The images were captured confirming adequate placement of the localizing wire. Plant Custodian assisted with the wire placement. Next, patients right breast and axilla were prepped and draped in the usual fashion. Care was taken not to displace the wire. Appropriate time out was done again prior second part of the procedure. Patients name, date of , and the procedure to be done were confirmed. Procedure was started with sentinel lymph node biopsy. Neoprobe was used to locate area of maximum intensity of the signal. Local anesthetic using 1% lidocaine and 0.25 % Marcaine 50/50 mix was injected. An incision was made with scalpel number 15 at the inferior aspect of axillary hair line in the right axilla where the maximum signal was identified. The sharp and blunt dissection was continued through the subcutaneous adipose tissue. Clavipectoral fascia was opened. Neoprobe was used to guide the dissection. First sentinel lymph node was identified and excised. The ex-vivo 10 second count was [address]. Second sentinel lymph node was identified and excised as well. The ex-vivo 10 second count was 735. Third sentinel lymph node was identified and excised as well. The ex-vivo 10 second count was 908. The specimens were labeled with patients name and sent to pathology. No additional lymph nodes with high radioactive signal were identified. The 10 second count of the background was 35. Adequate hemostasis was assured. Additional local anesthetic was injected into surrounding tissues. Wound was irrigated. Clavipectoral fascia was closed with 3-0 Vicryl interrupted suture. Dermal layer was closed at the end of the case with 3-0 Monocryl and skin was closed with 4-0 Monocryl. Surgical glue was applied to the incision at the end of the procedure. Next, our attention was turned toward the right breast. Local anesthetic using 1% lidocaine and 0.25 % Marcaine 50/50 mix was injected at the site of planned right superior periareolar incision. The incision was made with the scalpel. Subcutaneous skin flaps were raised and the guide wire was carefully pulled into the wound. Dissection was carries along the wire until the previously marked on the skin area of target lesion location was encountered. At this point, wider excision of the tissue surrounding the wire was done. The Hydromark clip was identified in the tissue with intraoperative hockey stick ultrasound probe. The end of the wire was identified with palpation. The lumpectomy specimen was carefully removed from the breast keeping its proper orientation and moved to the back table where margins were marked with the surgical inking kit following the standard colors recommendations. Specimen was then placed on the grid and placed in [employer] Specimen Imaging System. The image revealed the wire and the Hydromark in the spiculated mass in the specimen. The margins of the lumpectomy were assessed on the imaging and were determined to be adequate. No addition margin excision was felt to be needed. The specimen was labeled with patients name and right lumpectomy and sent to pathology. The specimen measured 4x4 cm. Upon palpation of lumpectomy bed, it was noted that there are two denser areas at the posterior aspect of the lumpectomy bed. The denser area at the inferior margin was excised and the true/ new margin, defined as margin farthest away from lumpectomy cavity, was marked with black ink. The denser tissue at the posterior/ inferior aspect of the lumpectomy bed was also excised. This the true/ new margin, defined as margin farthest away from lumpectomy cavity, was also marked with black ink. Each of those additional excisional areas were sent to pathology as separate specimens. The lumpectomy bed was then thoroughly irrigated. Adequate hemostasis was assured. Additional local anesthetic was injected into surrounding tissues. Six clips were placed to rodolfo the cavity. space was approximated with 2-0 Vicryl. The dermis was closed with 3-0 Vicryl and skin was closed with 4-0 Monocryl. Surgical glue was placed over the incision. Patient emerged from the anesthesia without any problems. Fluffs were placed over the operative site and patients chest was wrapped snuggly in the JEFE wrap. Sponge and instrument counts were done and were correct. Patient tolerated procedure well and was taken to recovery unit in stable con dition. MARIO ALBRECHT DO Nov 10, 2020 20:05
== END 2020-11-10 16:15 | disposition home or self-care (01) ==
LOC: M SDC 06:39
PROVIDERS: ATTEND Surgery
DX: D05.11 Intraductal carcinoma in situ of right breast (principal); R41.3 Other amnesia; I10 Essential (primary) hypertension; I34.1 Nonrheumatic mitral (valve) prolapse; H83.09 Labyrinthitis, unspecified ear; E55.9 Vitamin D deficiency, unspecified; Z79.899 Other long term (current) drug therapy; Z79.890 Hormone replacement therapy
CPT/HCPCS: 19125; 36415; 38525; 76942; 78195; 80053; 85027; 86850; 86900; 86901; 88305; 88307; 88342; A9541; J0131; J1100; J1644; J2370; J2405; J3010

== ENCOUNTER → 2020-11-27 | Outpatient (CLI) | payer MEDICARE, OTHER ==
[~2020-11-27] MED LIST changes: +CITA10TA5 PO; +ROXI1TAB2 PO
== END ==
LOC: M ONCR 09:26
PROVIDERS: ATTEND General Practice
DX: C50.811 Malignant neoplasm of overlapping sites of right female breast (principal); I10 Essential (primary) hypertension; Z85.828 Personal history of other malignant neoplasm of skin; Z88.0 Allergy status to penicillin; Z88.1 Allergy status to other antibiotic agents; Z88.5 Allergy status to narcotic agent; Z90.710 Acquired absence of both cervix and uterus; Z91.09 Other allergy status, other than to drugs and biological substances

== ENCOUNTER → 2020-12-14 | Outpatient (CLI) | payer MEDICARE, OTHER | LOC: M LABSMTC 11:23 | PROVIDERS: ATTEND Anesthesiology | DX: Z01.812 Encounter for preprocedural laboratory examination (principal); Z20.822 Contact with and (suspected) exposure to COVID-19 ==

== ENCOUNTER 2020-12-15 06:05 | Day surgery (SDC) | payer MEDICARE, OTHER ==
[~2020-12-15] VITALS: Ht 157.5 cm; Wt 64.4 kg
[~2020-12-15 06:05] MED LIST changes: +CLINDAMYCIN 900 MG in IV 1 EA IV ONE; +HEPARIN SOD (PORCINE) 5000UNITS/ML 1ML VIAL/SYRINGE SQ ONE; +LIDOCAINE 1% MDV 20ML VIAL SQ PRN; +LR 1,000 ML IV ONE
--- OUTSIDE RECORDS SUMMARY | 2020-12-15 06:10 | CCD | Summary of Care ---
Author Author [facility] Organization [facility] Address Unknown Phone Unavailable Care Team Providers Care Clay Products Machine Operator Name Role Phone Ted Benavides MD PCP Encounter Details Care Team Description Date Type Department 10/16/2020 [facility] Anatomical Encounter Pathology at [place] [address] [place] [address] Allergies Comments Active Allergy Reactions Severity Noted Date rash Amoxicillin Rash Low 02/25/2013 Meperidine Nausea Only 02/25/2013 Erythromycin Shortness Of High 02/25/2013 Breath, Other (See Comments) Penicillins Rash Medium 05/28/2013 documented as of this encounter (statuses as of 10/17/2020) Medications End Date Status Medication Sig Dispensed Refills Start Date Active estradiol (VIVELLE-DOT) Place 1 patch 0 0.025 MG/24HR onto the skin twice a week. Active meclizine (ANTIVERT) 25 Take 25 mg by 0 MG tablet mouth Three times daily as needed Active budesonide (RHINOCORT 1 spray by 0 AQUA) 32 MCG/ACT nasal Nasal route spray as needed Active Multiple Take 1 tablet 0 Vitamins-Minerals by mouth (MULTIVITAMIN WITH daily. MINERALS) tablet Active Cholecalciferol (VITAMIN Take 2,000 0 D) 2000 UNITS CAPS Units by mouth as needed Active amlodipine (NORVASC) 2.5 Take 2.5 mg 0 MG tabletIndications: by mouth Hypertension daily. Indications: High Blood Pressure Active ibuprofen (ADVIL,MOTRIN) Take 200 mg 0 200 MG tablet by mouth every 6 (six) hours as needed for Pain. Active cycloSPORINE 0.05 % 1 drop as 0 Ophthalmic Emulsion needed (RESTASIS) Active Fluticasone Propionate 50 1 spray by 0 MCG/ACT Nasal Suspension Nasal route (FLONASE) as needed Active Estradiol 1 MG Oral Take 1 mg by 0 Tablet (ESTRACE) mouth daily 0 Active Hydrocortisone Acetate [address] 25 mg 0 MG Rectal Suppository rectally as (ANUSOL-HC) needed Active Vitamin D Take 5,000 0 (Cholecalciferol) 25 MCG Units by (1000 UT) Oral Capsule mouth daily 4-5 times a week Active levoFLOXacin 750 MG Oral Take 750 mg 0 Tablet (LEVAQUIN) by mouth daily Active traMADol HCl (ULTRAM PO) Take 25 mg by 0 mouth as needed documented as of this encounter (statuses as of 10/17/2020) Active Problems Problem Noted Date Mild cognitive impairment, so stated 08/04/2020 Hypertension 04/02/2020 Hypercholesterolemia 04/02/2020 Aortic insufficiency 04/02/2020 Tinnitus 04/02/2020 Osteopenia 04/02/2020 Mitral valve regurgitation 04/02/2020 Skin cancer, basal cell, Right lower eye lid 021 [facility] arthritis, thumb, degenerative 02/28/2013 Labyrinthitis Vitamin D deficiency documented as of this encounter (statuses as of 10/17/2020) Immunizations Name Administration Dates Next Due documented as of this encounter Social History Date Tobacco Use Types Packs/Day Years Used Never Smoker Smokeless Tobacco: Never Used Comments Alcohol Use Standard Drinks/Week Rarely Not Currently 0 (1 standard drink = 0.6 o z pure alcohol) Alcohol Habits Answer Date Recorded How often do you have a drink containing alcohol? Monthly or less 04/16/2020 How many drinks containing alcohol do you have on 1 or 2 04/16/2020 a typical day when you are drinking? How often do you have six or more drinks on one Not asked 04/16/2020 occasion? Sex Assigned at Date Recorded Not on file documented as of this encounter Last Filed Vital Signs Not on filedocumented in this encounter Plan of Treatment Care Team Description Date Type Specialty 10/23/2020 Appointment Radiology Albertina Mijares MD [address] [facility] [address], [address] [place] [address] Macie Zamora, PhD [address] [place] [address] 11/25/2020 Confidential [facility] Albertina Mijares MD [address] [facility] [address], [address] [place] [address] 01/25/2021 Office Visit Neurology Date/Time Name Type Priority Associated Diag noses 10/16/2020 2:02 PM EDT Surgical pathology Pathology and Routine consult Cytology Order Schedule Name Type Priority Associated Diag noses Once for 1 Occurrences starting 10/17/19 21 until 10/16/2020 Surgical pathology Pathology and Routine consult Cytology Health Maintenance Due Date Last Done Comments Hepatitis C Screening (B. 1950 [id number]) MMR Vaccines (1 of 1 - 12/31/1951 Standard series) Varicella Vaccines (1 of 12/31/1951 2 - 2-dose childhood series) Pneumococcal Vaccine: 65+ 1956 Years (1 of 4 - PCV13) Pneumococcal Vaccine: 1956 Pediatrics (0 to 5 Years) and At-Risk Patients (6 to 64 Years) (1 of 4 - PCV13) DTaP,Tdap,and Td Vaccines 1957 (1 - Tdap) Breast Cancer Screening 2 2000 years Colon Cancer Screening 10 2000 yrs Zoster Vaccines (1 of 2) 2000 Osteoporosis Screening 2 12/31/2015 yr Influenza Vaccine 11/27/2020 11/20/2019, 11/23/2018, 01/14/2018, Additional history exists COVID-19 Vaccine Completed 05/06/2020, 04/03/2020 HIB Vaccines Aged Out No longer eligible based on patient's age to complete this topic Hepatitis A Vaccines Aged Out No longer eligibl e based on patient's age to complete this topic Hepatitis B Vaccines Aged Out No longer eligibl e based on patient's age to complete this topic IPV Vaccines Aged Out No longer eligible based on patient's age to complete this topic documented as of this encounter Results Not on filedocumented in this encounter
--- OUTSIDE RECORDS SUMMARY | 2020-12-15 06:10 | CCD ---
Author Author [facility] Organization [facility] Address Unknown Phone Unavailable Care Team Providers Care Assistant Community Manager Name Role Phone Sari Mark Unavailable PROBLEMS Type Condition ICD9-CM Code [id number] Code Onset Dates Condition S tatus W/U Status Risk SNOMED Code Notes Problem Midline cystocele N81.11 Active confirmed 42 9090393 Problem Rectocele N81.6 Active confirmed 268424653 Problem CRP elevated R79.82 Active confirmed 8990789 88835001 Problem Osteopenia, unspecified location M85.80 Active confirmed 343679238 Problem Abnormal mammogram of right breast R92.8 Activ e confirmed 616125953 Problem Menopausal disorder N95.9 Active confirmed 486612069 Problem 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 Active confirmed 691082533 Problem Vaginal wall prolapse N81.10 Active confirmed 356218516 Problem Dry eye H04.129 Active confirmed 764833510 Problem Primary osteoarthritis involving multiple joints M 15.0 Active confirmed 790792223 Problem Acquired absence of both cervix and uterus Z90.710 Active confirmed 780027708 Problem Hx of hysterectomy Z90.710 Active confirmed 343520227 ALLERGIES Allergen (clinical drug ingredient) Drug/Non Drug Allergy do cumented on EMR Reaction Allergy Type Onset Date Status meperidine Demerol(NDC Code:[address]-29) Nausea/Vomiting Drug Aller gy Active Penicillin (For Allergies Use Only) Hives Drug Allerg y Active patch glue (medical patches) Rash Non Drug Allergy Active juniper dow (gin) Anaphylaxis/ rash Non Drug Allergy Active meloxicam Meloxicam(NDC Code:[address]-92) patient is unsure Drug A llergy Active erythromycin Erythromycin([facility] Code:[address]-37) difficulty swallowing Drug Allergy Active ENCOUNTERS from 1950 to 2020-10-22 Encounter Location Date Provider Diagnosis [facility] [address] [place] [address] [place] [address] Sep, Sari Mrak IMMUNIZATIONS No Information SOCIAL HISTORY Tobacco Use: Social History Observation Description Date Details (start date - stop date) Never Smoker Sex Assigned At : Social History Observation Description Sex Assigned At Unknown Tobacco Use: Question Answer Notes Are you a: never smoker never smoker REASON FOR REFERRAL No Information VITAL SIGNS No information MEDICATIONS Medication SIG (Take, Route, Frequency, Duration) Notes Start Da te End Date Status Antivert 1 oral as needed Active Vitamin D3 Ultra Strength 5000 UNIT 1 capsule Orally every few days Not-Taking Estradiol 1 MG 1 tablet Orally Once a day pt states she is weaning off from this medication, takes it qod Not-Taking Multivital - as directed Orally Acti ve Folic Acid 1 MG 1 tablet Orally Once a day for 30 day(s) Active Prevagen 10 MG as directed Orally No t-Taking Restasis 0.05 % 1 drop into affected eye Ophthalmic Twice a day as ne eded Active amLODIPine Besylate 2.5 MG 1 tablet Orally Once a day Active Vitamin B12 100 MCG as directed Orally daily/occ Active Premarin 0.625 MG/GM 1/2 Vaginal twice a week for 90 days Not-Taking PROCEDURES No Information RESULTS No Results REAS[facility] VISIT [facility] ? MEDICAL (GENERAL) HISTORY Type Description Date Medical History labrythitis Medical History vitamin d deficiency Medical History hx. fibroids/then hysterecetomy Medical History hemhorroids Medical History MVP with murmur Medical History dry eye Medical History basal cell carcinoma face Medical History hypertension Surgical History colonoscopy polypectomy 2016 Surgical History vaginal hyster.A&P repair fo r prolpased bladder and heavy flow fibroids at age 28 has both ovaries age 35 Surgical History tonsillectomy age 8 Surgical History left thumb arthoplasty Surgical History removal of basal CA, just below the righ t eye Surgical History Midlinel sling transvaginal and A&P repair Dr Alonzo with scar tissue removal 12/25/2016 Surgical History 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 - [place] Dr Barnett 07/2017 Surgical History Right breast u/s bx 10/14/20 Hospitalization History surgery / childbirth Hospitalization History as a child to r/o [facility] Goals Section No Information Health Concerns No Information MEDICAL EQUIPMENT No Information MENTAL STATUS No Information FUNCTIONAL STATUS No Information ASSESSMENTS No Information PLAN OF TREATMENT No Information Insurance Providers Payer Name Payer Address Payer Phone Insured Name Patient Relati onship to Insured Coverage Start Date Coverage End Date [facility] [address] [id number] [facility] [id number] AYANA ABREU MEDICARE Part A and B [address] [place] [id number] MUMTAZ LUTZ self
--- OUTSIDE RECORDS SUMMARY | 2020-12-15 06:10 | CCD ---
Author Author [facility] Organization [facility] Address Unknown Phone Unavailable Care Team Providers Care Stain Maker Name Role Phone Sari Mark Unavailable PROBLEMS Type Condition ICD9-CM Code LMI89-AS Code Onset Dates Condition S tatus W/U Status Risk SNOMED Code Notes Problem Midline cystocele N81.11 Active confirmed 42 3420932 Problem Rectocele N81.6 Active confirmed 751858249 Problem CRP elevated R79.82 Active confirmed 7519681 14735024 Problem Osteopenia, unspecified location M85.80 Active confirmed 320079700 Problem Abnormal mammogram of right breast R92.8 Activ e confirmed 097583883 Problem Menopausal disorder N95.9 Active confirmed 674125708 Problem 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 Active confirmed 221105164 Problem Vaginal wall prolapse N81.10 Active confirmed 985042416 Problem Dry eye H04.129 Active confirmed 884449745 Problem Primary osteoarthritis involving multiple joints M 15.0 Active confirmed 043264654 Problem Acquired absence of both cervix and uterus Z90.710 Active confirmed 630017030 Problem Hx of hysterectomy Z90.710 Active confirmed 935380673 ALLERGIES Allergen (clinical drug ingredient) Drug/Non Drug Allergy do cumented on EMR Reaction Allergy Type Onset Date Status meperidine Demerol(NDC Code:[address]-76) Nausea/Vomiting Drug Aller gy Active Penicillin (For Allergies Use Only) Hives Drug Allerg y Active patch glue (medical patches) Rash Non Drug Allergy Active juniper dow (gin) Anaphylaxis/ rash Non Drug Allergy Active meloxicam Meloxicam(NDC Code:[address]-25) patient is unsure Drug A llergy Active erythromycin Erythromycin([facility] Code:[address]-94) difficulty swallowing Drug Allergy Active ENCOUNTERS from 1950 to 2020-12-03 Encounter Location Date Provider Diagnosis [facility] Breast Care [address] [facility] [phone] [place] [address] Oct, Sari Mark 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 ; Abnormal mammogram of right breast R92.8 ; Family history of cancer Z80.9 ; Hormone replacement therapy (postmenopausal) Z79.890 ; Genetic testing Z13.79 and Surgical aftercare, neoplasm Z48.3 IMMUNIZATIONS No Information SOCIAL HISTORY Tobacco Use: Social History Observation Description Date Details (start date - stop date) Never Smoker Sex Assigned At : Social History Observation Description Sex Assigned At Unknown Tobacco Use: Question Answer Notes Are you a: never smoker never smoker REASON FOR REFERRAL No Information VITAL SIGNS Weight 141 lbs Oct, Weight-kg 63.96 kg Oct, Height 62 in Oct, BMI 25.79 kg/m2 Oct, Heart Rate 72 /min Oct, Respiratory Rate 18 /min Oct, Temperature 97.8 degrees Fahrenheit Oct, Oximetry 98 Oct, Blood pressure systolic 130 mm Hg Oct, Blood pressure diastolic 82 mm Hg Oct, MEDICATIONS Medication SIG (Take, Route, Frequency, Duration) Notes Start Da te End Date Status Premarin 0.625 MG/GM 1/2 Vaginal twice a week for 90 days Not-Taking Vitamin D3 Ultra Strength 5000 UNIT 1 capsule Orally every few days Not-Taking Prevagen 10 MG as directed Orally No t-Taking Tylenol 325 MG 1 tablet as needed Orally every 4 hrs Active Multivital - as directed Orally Acti ve Restasis 0.05 % 1 drop into affected eye Ophthalmic Twice a day as ne eded Active amLODIPine Besylate 2.5 MG 1 tablet Orally Once a day Active Estradiol 1 MG 1 tablet Orally Once a day pt states she is weaning off from this medication, takes it qod Not-Taking Antivert 1 oral as needed Active Lidocaine-Prilocaine 2.5-2.5 % apply entire tube to ri ght nipple and surrounding tissue 2 hours before coming to hospital for surgery. Cover with plastic Externally once for 1 day Not-Ta jayshree Vitamin B12 100 MCG as directed Orally daily/occ Active Folic Acid 1 MG 1 tablet Orally Once a day for 30 day(s) Active PROCEDURES No Information RESULTS No Results REASON FOR VISIT 1WK POST OP MEDICAL (GENERAL) HISTORY Type Description Date Medical [...] from pelvic ar ea blocking colon - [place] Dr Barnett 07/2017 Surgical History Right breast u/s bx 10/14/20 Surgical History RT lumpectomy with intraop wire placemen t and RT SLN bx 11/10/20 Hospitalization History surgery / childbirth Hospitalization History as a child to r/o [facility] Goals Section No Information Health Concerns No Information MEDICAL EQUIPMENT No Information MENTAL STATUS No Information FUNCTIONAL STATUS No Information ASSESSMENTS Encounter Date Diagnosis Assessment Notes Treatment Notes Treatm ent Clinical Notes Oct, Invasive ductal carcinoma of right breast (ICD-1 0 - C50.911) RIGHT BREAST CANCER IDC GRADE 1 ER 80% AR 90% HER2 negative cT1b (8mm) cN0 cM0 ANATOMIC STAGE 1 CLINICAL PROGNOSTIC STAGE: 1 s/p Right lumpectomy and SLNBx on 11/10/2020 with me m p T1c (1.2 cm ILC, 1 cm tubular Ca, additional small foci ILC) pN0 cM0 PATHOLOGIC PROGNOSTIC STAGE: 1 * Lobular neoplasia also seen PRELIMINARY Pathology: A-IDC B-invasive LOBULAR carcinoma, grade 2, 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 Awaiting final pathology from [facility] 2. When final path available, will present case at tumor board 3. Asked to massage the surgical area to soften the tissue at 2 week post op 4. Referral to Medical Oncology, previously sent 5. Referral to Radiation Oncology, previously sent 6. If additional surgery needed, patient's will need to come in with patient due to her memory problems I reviewed the preliminary results with the patient and her . I explained that beside knownd IDC there are a few foci of ILC, which is a completely different cancer. One of the foci measured 1.2 cm. I explained that it is unclear at this time if the margins are negative. I reminded the patient that further re-excision may be a needed, however, it is unclear at this time. I also stated I will present her case to the tumor board to discuss her options further when the final path is available. I informed patienmt that if the margins are positive, we will need to plan for margin re-excision - that depends of final pathology results. I will call them with any updated information. All questions were answered. Patient and her family agree with the plan Oct, Abnormal mammogram of right breast (ICD-10 - R92 .8) s/p Right ultrasound guided biopsy on 10/14/2020 with me See above Initial screening mammogram showed possible architectural distortion in the right upper outer quadrant which compressed to stable mammographic tissue on diagnostic mammogram. MRI of the breast will be done to evaluate this lesion further and to assess for any additional suspicious lesions in addition to known cancer at 12:00 3 CFN. Oct, Family history of cancer (ICD-10 - Z80.9) Patient participated in our Cancer screening program and she was not found to be at increased risk for cancer based on her family history. She does not qualify for high risk screening with MRI of the breast based on her family history. She does qualify for genetic testing base on personal Hx of breast Ca. Her TC score in 2.4% Oct, Hormone replacement therapy (postmenopausal) (IC D-10 - Z79.890) Patient reports she is on Estrodial tablets. She states she is trying to wean off. I explained that post menopausal women taking hormone replacement therapy are at an increased risk of breast cancer. Since patient now has confirmed malignancy which will likely will be ER/AR +, I recommended for patient to stop hormone replacement therapy now. Oct, Genetic testing (ICD-10 - Z13.79) Results discussed today. Negative for clinically significant mutations. 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 A copy of the report was given today Oct, Surgical aftercare, neoplasm (ICD-10 - Z48.3) Oct, Other I, Dr. Higinio bass, reviewed the medical note prepared by the scribe and confirm the findings and the discussed plan. PLAN OF TREATMENT Treatment Notes Assessment Notes Clinical Notes Invasive ductal carcinoma of right breast RIGHT BREAST CANCERIDC GRADE 1ER 80% AR 90% HER2 [id number] (8mm) cN0 [id number] STAGE 1CLINICAL PROGNOSTIC STAGE: 1s/p Right lumpectomy and SLNBx on 11/10/2020 with mem p T1c (1.2 cm ILC, 1 cm tubular Ca, additional small foci ILC) pN0 [id number] PROGNOSTIC STAGE: 1* Lobular neoplasia also seenPRELIMINARY Pathology:[id number] LOBULAR carcinoma, grade 2, 1.2cmC-ILC, grade 2PLAN:1. Awaiting final pathology from [facility]. When final path available, will present case at tumor board3. Asked to massage the surgical area to soften the tissue at 2 week post op4. Referral to Medical Oncology, previously sent5. Referral to Radiation Oncology, previously sent6. If additional surgery needed, patient's will need to come in with patient due to her memory problemsI reviewed the preliminary results with the patient and her . I explained that beside knownd IDC there are a few foci of ILC, which is a completely different cancer. One of the foci measured 1.2 cm.I explained that it is unclear at this time if the margins are negative. I reminded the patient that further re-excision may be a needed, however, it is unclear at this time.I also stated I will present her case to the tumor board to discuss her options further when the final path is available.I informed patienmt that if the margins are positive, we will need to plan for margin re-excision - that depends of final pathology results. I will call them with any updated information.All questions were answered. Patient and her family agree with the plan Abnormal mammogram of right breast s/p Right ultrasoun d guided biopsy on 10/14/2020 with meSee aboveInitial screening mammogram showed possible architectural distortion in the right upper outer quadrant which compressed to stable mammographic tissue on diagnostic mammogram. MRI of the breast will be done to evaluate this lesion further and to assess for any additional suspicious lesions in addition to known cancer at 12:00 3 CFN. Family history of cancer Patient participated in our Cancer screening program and she was not found to be at increased risk for cancer based on her family history. She does not qualify for high risk screening with MRI of the breast based on her family history.She does qualify for genetic testing base on personal Hx of breast Ca.Her TC score in 2.4% Hormone replacement therapy (postmenopausal) Patient r eports she is on Estrodial tablets. She states she is trying to wean off. I explained that post menopausal women taking hormone replacement therapy are at an increased risk of breast cancer.Since patient now has confirmed malignancy which will likely will be ER/AR +, I recommended for patient to stop hormone replacement therapy now. Genetic testing Results discussed today. Neg ative for clinically significant mutations. There was a VUS in the AXIN2 gene.A copy of the report was given today Next Appt Details Provider Name:Sari Mark, 20 21-10-11 10:00:00 AM, [address] [place] [address], [place], [place], [facility], Insurance Providers Payer Name Payer Address Payer Phone Insured Name Patient Relati onship to Insured Coverage Start Date Coverage End Date [facility] [address] [address] [facility] [phone] AYANA ABREU MEDICARE Part A and B [address] [facility] [phone] MUMTAZ LUTZ
--- OUTSIDE RECORDS SUMMARY | 2020-12-15 06:10 | CCD ---
Author Author [facility] Organization [facility] Address Unknown Phone Unavailable Care Team Providers Care Studio Technician Video Operator Name Role Phone Sari Mark Unavailable PROBLEMS Type Condition ICD9-CM Code UDC21-KX Code Onset Dates Condition S tatus W/U Status Risk SNOMED Code Notes Problem Midline cystocele N81.11 Active confirmed 42 5725713 Problem Rectocele N81.6 Active confirmed 246585553 Problem CRP elevated R79.82 Active confirmed 1210625 62692867 Problem Osteopenia, unspecified location M85.80 Active confirmed 143600725 Problem Abnormal mammogram of right breast R92.8 Activ e confirmed 416431253 Problem Menopausal disorder N95.9 Active confirmed 818258726 Problem 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 Active confirmed 828700255 Problem Vaginal wall prolapse N81.10 Active confirmed 663477017 Problem Dry eye H04.129 Active confirmed 842670415 Problem Primary osteoarthritis involving multiple joints M 15.0 Active confirmed 674386876 Problem Acquired absence of both cervix and uterus Z90.710 Active confirmed 153365785 Problem Hx of hysterectomy Z90.710 Active confirmed 098760835 ALLERGIES Allergen (clinical drug ingredient) Drug/Non Drug Allergy do cumented on EMR Reaction Allergy Type Onset Date Status meperidine Demerol(NDC Code:[address]-57) Nausea/Vomiting Drug Aller gy Active Penicillin (For Allergies Use Only) Hives Drug Allerg y Active patch glue (medical patches) Rash Non Drug Allergy Active juniper dow (gin) Anaphylaxis/ rash Non Drug Allergy Active meloxicam Meloxicam([facility]C Code:[address]-24) patient is unsure Drug A llergy Active erythromycin Erythromycin([facility] Code:[address]-51) difficulty swallowing Drug Allergy Active ENCOUNTERS from 1950 to 2020-11-09 Encounter Location Date Provider Diagnosis [facility] [address] [facility] [phone] [place] [address] 13 Oct, 2020 Sari Mark IMMUNIZATIONS No Information SOCIAL HISTORY Tobacco Use: [...] Notes Start Da te End Date Status amLODIPine Besylate 2.5 MG 1 tablet Orally Once a day Active Prevagen 10 MG as directed Orally No t-Taking Estradiol 1 MG 1 tablet Orally Once a day pt states she is weaning off from this medication, takes it qod Not-Taking Vitamin D3 Ultra Strength 5000 UNIT 1 capsule Orally every few days Not-Taking Folic Acid 1 MG 1 tablet Orally Once a day for 30 day(s) Active Vitamin B12 100 MCG as directed Orally daily/occ Active Premarin 0.625 MG/GM 1/2 Vaginal twice a week for 90 days Not-Taking Antivert 1 oral as needed Active Lidocaine-Prilocaine 2.5-2.5 % apply entire tube to ri ght nipple and surrounding tissue 2 hours before coming to hospital for surgery. Cover with plastic Externally once for 1 day Active Restasis 0.05 % 1 drop into affected eye Ophthalmic Twice a day as ne eded Active Multivital - as directed Orally Acti ve PROCEDURES No Information RESULTS No Results REASON FOR VISIT BRAIN MRI RESULTS MEDICAL (GENERAL) HISTORY Type Description Date Medical History labrythitis Medical History vitamin d deficiency Medical History hx. fibroids/then hysterecetomy Medical History hemhorroids Medical History MVP with murmur Medical History dry eye Medical History basal cell carcinoma face Medical History hypertension Surgical History colonoscopy polypectomy 2017 Surgical History vaginal hyster.A&P repair fo r [...] from pelvic ar ea blocking colon - [place] Dr Barnett 07/2017 Surgical History Right breast u/s bx 10/14/20 Hospitalization History surgery / childbirth Hospitalization History as a child to r/o [facility] Goals Section No Information Health Concerns No Information MEDICAL EQUIPMENT No Information MENTAL STATUS No Information FUNCTIONAL STATUS No Information ASSESSMENTS No Information PLAN OF TREATMENT Medication Medication Name Sig Start Date Stop Date Lidocaine-Prilocaine 2.5-2.5 % apply entire tube to ri ght nipple and surrounding tissue 2 hours before coming to hospital for surgery. Cover with plastic Externally once for 1 day Next Appt Details Provider Name:Sari Mark, 17-11-13 09:45:00 AM, [address] [place], [place] [address], [place], [address], Provider Name:Sari Mark, 18-11-19 11:30:00 AM, [address] [place], [place] [address], [place], [address], Provider Name:Sari Mark, 17-12-10 10:00:00 AM, [address] [place], [place] [address], [place], [place], [address] [place], [place] [phone] Insurance Providers Payer Name Payer Address Payer Phone Insured Name Patient Relati onship to Insured Coverage Start Date Coverage End Date MEDICARE Part A and B [address] [facility] [phone] MUMTAZ LUTZ R [facility] [address] [id number] [facility] [phone] AYANA ABREU
--- OUTSIDE RECORDS SUMMARY | 2020-12-15 06:10 | CCD ---
Author Author [facility] Organization [facility] Address Unknown Phone Unavailable Care Team Providers Care Machine Maintenance Mechanic Name Role Phone Sari Mark Unavailable PROBLEMS Type Condition ICD9-CM Code GDR45-AB Code Onset Dates Condition S tatus W/U Status Risk SNOMED Code Notes Problem Midline cystocele N81.11 Active confirmed 42 1952140 Problem Rectocele N81.6 Active confirmed 747797937 Problem CRP elevated R79.82 Active confirmed 3752372 05605111 Problem Osteopenia, unspecified location M85.80 Active confirmed 014528209 Problem Abnormal mammogram of right breast R92.8 Activ e confirmed 476830207 Problem Menopausal disorder N95.9 Active confirmed 147684025 Problem 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 Active confirmed 427027515 Problem Vaginal wall prolapse N81.10 Active confirmed 157292744 Problem Dry eye H04.129 Active confirmed 607528301 Problem Primary osteoarthritis involving multiple joints M 15.0 Active confirmed 250317206 Problem Acquired absence of both cervix and uterus Z90.710 Active confirmed 334947420 Problem Hx of hysterectomy Z90.710 Active confirmed 423770477 ALLERGIES Allergen (clinical drug ingredient) Drug/Non Drug Allergy do cumented on EMR Reaction Allergy Type Onset Date Status meperidine Demerol(NDC Code:[address]-24) Nausea/Vomiting Drug Aller gy Active Penicillin (For Allergies Use Only) Hives Drug Allerg y Active patch glue (medical patches) Rash Non Drug Allergy Active juniper dow (gin) Anaphylaxis/ rash Non Drug Allergy Active meloxicam Meloxicam([facility]C Code:[address]-79) patient is unsure Drug A llergy Active erythromycin Erythromycin([facility] Code:[address]-15) difficulty swallowing Drug Allergy Active ENCOUNTERS from 1950 to 2020-10-26 Encounter Location Date Provider Diagnosis [facility] Breast Care [address] [facility] [phone] [place] [id number] Sep, Sari Mark IMMUNIZATIONS No Information SOCIAL HISTORY [...] with plastic Externally once for 1 day Sep, Active Restasis 0.05 % 1 drop into affected eye Ophthalmic Twice a day as ne eded Active Multivital - as directed Orally Acti ve PROCEDURES No Information RESULTS No Results REASON FOR VISIT question about results. MEDICAL (GENERAL) HISTORY Type Description Date Medical [...] from pelvic ar ea blocking colon - [place] Dr Barnett 07/2017 Surgical History Right breast [...] with plastic Externally once for 1 day Sep, Insurance Providers Payer Name Payer Address Payer Phone Insured Name Patient Relati onship to Insured Coverage Start Date Coverage End Date [facility] [address] [id number] [facility] [phone] AYANA ABREU MEDICARE Part A and B [address] [facility] [phone] MUMTAZ LUTZ
--- OUTSIDE RECORDS SUMMARY | 2020-12-15 06:10 | CCD ---
Author Author [facility] Organization [facility] Address Unknown Phone Unavailable Care Team Providers Care Fiber Optic Technician Name Role Phone Sari Mark Unavailable PROBLEMS Type Condition ICD9-CM Code WAJ71-CL Code Onset Dates Condition S tatus W/U Status Risk SNOMED Code Notes Problem Midline cystocele N81.11 Active confirmed 42 5534120 Problem Rectocele N81.6 Active confirmed 441396982 Problem CRP elevated R79.82 Active confirmed 6331302 51441011 Problem Osteopenia, unspecified location M85.80 Active confirmed 457000541 Problem Abnormal mammogram of right breast R92.8 Activ e confirmed 992142128 Problem Menopausal disorder N95.9 Active confirmed 495532012 Problem 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 Active confirmed 527632115 Problem Vaginal wall prolapse N81.10 Active confirmed 392761215 Problem Dry eye H04.129 Active confirmed 499195774 Problem Primary osteoarthritis involving multiple joints M 15.0 Active confirmed 955835524 Problem Acquired absence of both cervix and uterus Z90.710 Active confirmed 929536812 Problem Hx of hysterectomy Z90.710 Active confirmed 429937496 ALLERGIES Allergen (clinical drug ingredient) Drug/Non Drug Allergy do cumented on EMR Reaction Allergy Type Onset Date Status meperidine Demerol([facility]C Code:[address]-93) Nausea/Vomiting Drug Aller gy Active Penicillin (For Allergies Use Only) Hives Drug Allerg y Active patch glue (medical patches) Rash Non Drug Allergy Active juniper dow (gin) Anaphylaxis/ rash Non Drug Allergy Active meloxicam Meloxicam([facility]C Code:[address]-86) patient is unsure Drug A llergy Active erythromycin Erythromycin([facility] Code:[address]-18) difficulty swallowing Drug Allergy Active ENCOUNTERS from 1950 to 2020-10-29 Encounter Location Date Provider Diagnosis [facility] Breast Care [address] [facility] [phone] [place] [address] Oct, Sari Mark IMMUNIZATIONS No Information SOCIAL HISTORY [...] Information RESULTS No Results REASON FOR VISIT brain mri MEDICAL (GENERAL) HISTORY Type Description Date Medical [...] from pelvic ar ea blocking colon - [place] Dr Barnett 07/2017 Surgical History Right breast [...] with plastic Externally once for 1 day Insurance Providers Payer Name Payer Address Payer Phone Insured Name Patient Relati onship to Insured Coverage Start Date Coverage End Date [facility] [address] [id number] [facility] [phone] AYANA ABREU MEDICARE Part A and B [address] [facility] [phone] MUMTAZ LUTZ self
--- OUTSIDE RECORDS SUMMARY | 2020-12-15 06:10 | CCD | Summary of Care ---
Author Author [facility] Organization [facility] Address Unknown Phone Unavailable Care Team Providers Care Rail Assembler Name Role Phone Ted Benavides MD PCP Reason for Referral * Diagnostic Radiology (Routine) Referred By Contact Referred To Contact Status Reason Specialty Diagnoses / Procedures Albertina Mijares MD [address] [place] [address], [address] [place] [phone] Email: [email or web address] Authorized Radiology Diagnoses Mild cognitive impairment with memory loss P rocedures MR Brain without Contrast Electronically signed by Albertina Mijares MD at Reason for Visit * Diagnostic Radiology (Routine) Referred By Contact Referred To Contact Status Reason Specialty Diagnoses / Procedures Albertina Mijares MD [address] [place] [address], [address] [place] [phone] Email: [email or web address] Authorized Radiology Diagnoses Mild cognitive impairment with memory loss P rocedures MR Brain without Contrast Encounter Details Care Team Description Date Type Department Mild cognitive impairment wi th memory loss 10/23/2020 [facility] MRI 550HAR Encounter [address] [id number] Allergies Comments Active Allergy Reactions Severity Noted Date rash Amoxicillin Rash Low 02/25/2013 Meperidine Nausea Only 02/25/2013 Erythromycin Shortness Of High 02/25/2013 Breath, Other (See Comments) Penicillins Rash Medium 05/28/2013 documented as of this encounter (statuses as of 10/24/2020) Medications End Date Status Medication Sig Dispensed [...] as of this encounter (statuses as of 10/24/2020) Active Problems Problem Noted Date Mild cognitive impairment, so stated 08/04/2020 Hypertension 04/02/2020 Hypercholesterolemia 04/02/2020 Aortic insufficiency 04/02/2020 Tinnitus 04/02/2020 Osteopenia 04/02/2020 Mitral valve regurgitation 04/02/2020 Skin cancer, basal cell, Right lower eye lid 021 [facility] arthritis, thumb, degenerative 02/28/2013 Labyrinthitis Vitamin D deficiency documented as of this encounter (statuses as of 10/24/2020) Immunizations Name Administration Dates Next Due documented [...] Assigned at Date Recorded Not on file Date Recorded COVID-19 Exposure Response 10/23/2020 3:16 PM EDT In the last month, have you been in contact with No / Unsure someone who was confirmed or suspected to have Coronavirus / COVID-19? documented as of this encounter Last Filed Vital Signs Not on filedocumented in this encounter Plan of Treatment Care Team Description Date Type Specialty Albertina Mijares MD [address], [address] [place] [phone] Macie Zamora, PhD [address] [facility] [address] [place] [address] [phone] 11/25/2020 [facility] Albertina Mijares MD [address], [address] [place] [phone] 01/25/2021 Office Visit Neurology Date/Time Name Type Priority Associated Diag noses 10/23/2020 4:26 PM EDT MR Brain without Contrast Imaging Routine Mild cognitive impairment with memory loss Order Schedule Name Type Priority Associated Diag noses As Needed for 1 Occurrences starting until 10/23/2020 MR Brain without Contrast Imaging Routine Mild cognitive impairment with memory loss Health Maintenance Due Date Last Done Comments Hepatitis C Screening (B. 1950 [id number]) MMR Vaccines (1 of 1 - 12/31/1951 [...] Results Not on filedocumented in this encounter Visit Diagnoses Diagnosis Mild cognitive impairment with memory l oss Mild cognitive impairment, so stated documented in this encounter
--- OUTSIDE RECORDS SUMMARY | 2020-12-15 06:10 | CCD ---
Author Author [facility] Organization [facility] Address Unknown Phone Unavailable Care Team Providers Care Roving Or Yarn Color Checker Name Role Phone Sari Mark Unavailable PROBLEMS Type Condition ICD9-CM Code [id number] Code Onset Dates Condition S tatus W/U Status Risk SNOMED Code Notes Problem Midline cystocele N81.11 Active confirmed 42 1837834 Problem Rectocele N81.6 Active confirmed 163542231 Problem CRP elevated R79.82 Active confirmed 9691311 43411399 Problem Osteopenia, unspecified location M85.80 Active confirmed 242212537 Problem Abnormal mammogram of right breast R92.8 Activ e confirmed 719059171 Problem Menopausal disorder N95.9 Active confirmed 059882046 Problem 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 Active confirmed 025171114 Problem Vaginal wall prolapse N81.10 Active confirmed 353533231 Problem Dry eye H04.129 Active confirmed 335672934 Problem Primary osteoarthritis involving multiple joints M 15.0 Active confirmed 710125553 Problem Acquired absence of both cervix and uterus Z90.710 Active confirmed 478900695 Problem Hx of hysterectomy Z90.710 Active confirmed 694561831 ALLERGIES Allergen (clinical drug ingredient) Drug/Non Drug Allergy do cumented on EMR Reaction Allergy Type Onset Date Status meperidine Demerol(NDC Code:[address]-06) Nausea/Vomiting Drug Aller gy Active Penicillin (For Allergies Use Only) Hives Drug Allerg y Active patch glue (medical patches) Rash Non Drug Allergy Active juniper dow (gin) Anaphylaxis/ rash Non Drug Allergy Active meloxicam Meloxicam(NDC Code:[address]-85) patient is unsure Drug A llergy Active erythromycin Erythromycin([facility] Code:[address]-77) difficulty swallowing Drug Allergy Active ENCOUNTERS from 1950 to 2020-11-11 Encounter Location Date Provider Diagnosis [facility] Breast Care [facility] [phone] [place] [address] 15 Oct, 2020 Sari Mark IMMUNIZATIONS No Information [...] Information RESULTS No Results REASON FOR VISIT 1 day postop MEDICAL (GENERAL) HISTORY Type Description Date Medical [...] from pelvic ar ea blocking colon - [place] Dr Barnett 07/2017 Surgical History Right breast [...] day Next Appt Details Provider Name:Sari Mark, 18-11-19 11:30:00 AM, [address] [place] [address], , [place], [place], [facility], Provider Name:Sari Mark, 17-12-10 10:00:00 AM, [address] [place] [address], , [place], [place], [facility], Insurance Providers Payer Name Payer Address Payer Phone Insured Name Patient Relati onship to Insured Coverage Start Date Coverage End Date [facility] [address] [id number] [facility] [phone] AYANA ABREU MEDICARE Part A and B [address] [facility] [phone] MUMTAZ LUTZ
--- OUTSIDE RECORDS SUMMARY | 2020-12-15 06:10 | CCD | Summary of Care ---
Author Author [facility] Organization [facility] Address Unknown Phone Unavailable Care Team Providers Care Church Business Administrator Name Role Phone Ted Benavides MD PCP Reason for Referral * Diagnostic Radiology (STAT) Referred By Contact Referred To Contact Status Reason Specialty Diagnoses / Procedures Albertina Mijares MD [address] [place] [address], [address] [place] [phone] Email: [email or web address] Authorized Radiology Diagnoses Mild cognitive impairment with memory loss P rocedures MR Brain with and without Contrast Electronically signed by Albertina Mijares MD at Reason for Visit * Diagnostic Radiology (STAT) Referred By Contact Referred To Contact Status Reason Specialty Diagnoses / Procedures Albertina Mijares MD [address] [place] [address], [address] [place] [phone] Email: [email or web address] Authorized Radiology Diagnoses Mild cognitive impairment with memory loss P rocedures MR Brain with and without Contrast Encounter Details Care Team Description Date Type Department Mild cognitive impairment wi th memory loss 11/09/2020 [facility] [address] [place] [phone] Allergies Comments Active Allergy Reactions Severity Noted Date rash Amoxicillin Rash Low 02/25/2013 Meperidine Nausea Only 02/25/2013 Erythromycin Shortness Of High 02/25/2013 Breath, Other (See Comments) Penicillins Rash Medium 05/28/2013 documented as of this encounter (statuses as of 11/10/2020) Medications End Date Status Medication Sig Dispensed [...] as of this encounter (statuses as of 11/10/2020) Active Problems Problem Noted Date Mild cognitive impairment, so stated 08/04/2020 Hypertension 04/02/2020 Hypercholesterolemia 04/02/2020 Aortic insufficiency 04/02/2020 Tinnitus 04/02/2020 Osteopenia 04/02/2020 Mitral valve regurgitation 04/02/2020 Skin cancer, basal cell, Right lower eye lid 021 [facility] arthritis, thumb, degenerative 02/28/2013 Labyrinthitis Vitamin D deficiency documented as of this encounter (statuses as of 11/10/2020) Immunizations Name Administration Dates Next Due documented [...] on file Date Recorded COVID-19 Exposure Response 11/09/2020 7:49 AM EDT In the last month, have you been in contact with No / Unsure someone who was confirmed or suspected to have Coronavirus / COVID-19? documented as of this encounter Last Filed Vital Signs Not on filedocumented in this encounter Plan of Treatment Care Team Description Date Type Specialty Albertina Mijares MD [address] [place] [address] [address] Floor, [address] [place] [phone] 01/25/2021 Office Visit Neurology Health Maintenance Due Date Last Done Comments Hepatitis C Screening (B. 1950 [id number]) MMR Vaccines (1 of 1 - 12/31/1951 [...] this topic documented as of this encounter Procedures Comments Procedure Name Priority Date/Time Associated Diag nosis MR BRAIN WITH AND WITHOUT Routine 11/09/2020 Mild cognitive impairment CONTRAST 15043 10:18 AM EDT with memory loss POCT ISTAT CREATININE Routine 11/09/2020 9:22 AM EDT documented in this encounter Results * MR Brain with and without Contrast (11/09/2020 10:18 AM EDT) Specimen Impressions Performed At IMPRESSION: [facility] 1. Increased signal on the diffusion weig hted images in the paramedian cortex of the left and right frontal lobe and in the cortex of the left and right insula has been present without significant ch susana since a study performed at [facility] neurology on 10/09/2018 and is t herefore not believed to be related to an acute disease process. There is no abno rmal enhancement following contrast administration within these regions or any other portion of the brain. 2. No acute intracranial hemorrhage, evid ence of acute infarction, or other acute intracranial disease process. Narrative Performed At [facility] EXAMINATION: MR BRAIN WITH AND WITHOUT CONTRAST [id number] CLINICAL INDICATION: Abnormal MRI. Per the electronic medical record, patient has history of progressive cognitive de boss. TECHNIQUE: Multiplanar and multisequence MR image s of the brain were obtained on our Shal[employer] Ingenia 3.0 Amarilys MRI scanner. IV CONTRAST: Yes. COMPARISON: MRI of the brain without co ntrast dated 10/23/2020 and MRI of the brain performed at [facility] on 10/09/2018. FINDINGS: Previously reported symmetric gyriform restricted diffusion and mild increased T2 and FLAIR signal in the le ft and right anterior frontal lobes and in the cortex of the left and right ins neville was also present on the MRI of the brain performed at [facility] on 10/09/2018. Generalized cerebral volume loss with commensurate enlargeme nt of the ventricles is unchanged. The basal cisterns are patent. There is no acute intracranial hemorrhage or evidence of acute infarction. Neither space-occu pying mass, shift of the midline structures, nor abnormal extra-axial fl uid collections are present. Normal flow voids of the major intracranial arteria l vessels are identified. There is no abnormal enhancement following contrast administration. Imaged portions of the paranasal sinuse s and mastoid air cells are clear. Procedure Note Interface, Received Via [employer] System - 11/09/2020 11:51 AM EDT EXAMINATION: MR BRAIN WITH AND WITHOUT CONTRAST [id number] CLINICAL INDICATION: Abnormal MRI. Per the electronic medical record, patient has history of progressive cognitive decline. TECHNIQUE: Multiplanar and multisequence MR images of the brain were obtained on our Shalini Ingenia 3.0 Amarilys MRI scanner. IV CONTRAST: Yes. COMPARISON: MRI of the brain without contrast dated 10/23/2020 and MRI of the brain performed at [facility] on 10/09/2018. FINDINGS: Previously reported symmetric gyriform restricted diffusion and mild increased T2 and FLAIR signal in the left and right anterior frontal lobes and in the cortex of the left and right insula was also present on the MRI of the brain performed at [facility] on 10/09/2018. Generalized cerebral volume loss with commensurate enlargement of the ventricles is unchanged. The basal cisterns are patent. There is no acute intracranial hemorrhage or evidence of acute infarction. Neither space-occupying mass, shift of the midline structures, nor abnormal extra-axial fluid collections are present. Normal flow voids of the major intracranial arterial vessels are identified. There is no abnormal enhancement following contrast administration. Imaged portions of the paranasal sinuses and mastoid air cells are clear. IMPRESSION: 1. Increased signal on the diffusion we ighted images in the paramedian cortex of the left and right frontal lobe and in the cortex of the left and right insula has been present without significant change since a study performed at [facility] on 10/09/2018 and is therefore not believed to be related to an acute disease process. There is no abnormal enhancement following contrast administration within these regions or any other portion of the brain. 2. No acute intracranial hemorrhage, ev idence of acute infarction, or other acute intracranial disease process. Performing Organization Address City/State/ZIP Code P regina Number [facility] [address] [place] [address] * POCT i-STAT Creatinine (11/09/2020 9:22 AM EDT) [facility] Signature i-STAT 0.7 0.50 - 0.90 mg/dL [facility] POC Specimen Whole Blood Performing Organization Address City/State/ZIP Code P regina Number POINT OF CARE TEST [address] [place], [place] [id number] [place] [address] POC [address] [place] [address] documented in this encounter Visit Diagnoses Diagnosis Mild cognitive impairment with memory l oss Mild cognitive impairment, so stated documented in this encounter Administered Medications Action Date Dose Rate Site Medication Order MAR Action 11/09/2020 10:08 AM EDT 6.5 mLs gadobutrol (GADAVIST) contrast injection Given by IV 6.5 mL push 6.5 mL (rounded from 6.53 mL = 0.1 mL/k g 65.3 kg), Intravenous, 1 TIME IMAGING, On Mon11/09/20 at 1000, For 1 dose, Imaging Protocol, Do not mix or administer in the same IV line with other medications. documented in this encounter
--- OUTSIDE RECORDS SUMMARY | 2020-12-15 06:10 | CCD ---
Author Author [facility] [employer] [facility] Organization [facility] Address Unknown Phone Unavailable Care Team Providers Care Concrete Block Maker Name Role Phone Sari Mark Unavailable PROBLEMS Type Condition ICD9-CM Code [id number] Code Onset Dates Condition S tatus W/U Status Risk SNOMED Code Notes Problem Vaginal wall prolapse N81.10 Active confirmed 821284550 Problem Osteopenia, unspecified location M85.80 Active confirmed 445586957 Problem Rectocele N81.6 Active confirmed 515557585 Problem CRP elevated R79.82 Active confirmed 1902895 38316848 Problem Dry eye H04.129 Active confirmed 121612770 Problem 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 Active confirmed 569286777 Problem Midline cystocele N81.11 Active confirmed 42 0359571 Problem Malignant neoplasm of unspecified site of right female breast C50.911 Active confirmed 927326268 Problem Menopausal disorder N95.9 Active confirmed 875594833 Problem Primary osteoarthritis involving multiple joints M 15.0 Active confirmed 248857451 Problem Acquired absence of both cervix and uterus Z90.710 Active confirmed 184132439 Problem Hx of hysterectomy Z90.710 Active confirmed 521380473 Problem Abnormal mammogram of right breast R92.8 Activ e confirmed 415408600 ALLERGIES Allergen (clinical drug ingredient) Drug/Non Drug Allergy do cumented on EMR Reaction Allergy Type Onset Date Status meperidine Demerol([facility] Code:[address]-43) Nausea/Vomiting Drug Aller gy Active Penicillin (For Allergies Use Only) Hives Drug Allerg y Active patch glue (medical patches) Rash Non Drug Allergy Active juniper dow (gin) Anaphylaxis/ rash Non Drug Allergy Active meloxicam Meloxicam([facility] Code:[address]-25) patient is unsure Drug A llergy Active erythromycin Erythromycin([facility] Code:[address]-27) difficulty swallowing Drug Allergy Active ENCOUNTERS from 1950 to 2020-12-03 Encounter Location Date Provider Diagnosis [facility] Breast Care [facility] [phone] [place] [address] Nov, Sari Mark IMMUNIZATIONS No Information SOCIAL HISTORY [...] Information RESULTS No Results REASON FOR VISIT Records to [facility] (GENERAL) HISTORY Type Description Date Medical History [...] from pelvic ar ea blocking colon - [place] Dr Barnett 07/2017 Surgical History Right breast u/s bx 10/14/20 Surgical History RT lumpectomy with intraop wire placemen t and RT SLN bx 11/10/20 Hospitalization History surgery / childbirth Hospitalization History as a child to r/o [facility] Goals Section No Information Health Concerns No Information MEDICAL EQUIPMENT No Information MENTAL STATUS No Information FUNCTIONAL STATUS No Information ASSESSMENTS No Information PLAN OF TREATMENT Next Appt Details Provider Name:Sari Mark, 17-12-10 10:00:00 AM, [address] [facility], [place], [address], Insurance Providers Payer Name Payer Address Payer Phone Insured Name Patient Relati onship to Insured Coverage Start Date Coverage End Date MEDICARE Part A and B [address] [facility] [phone] MUMTAZ LUTZ [facility] [address] [address] [facility] [phone] AYANA ABREU
--- OUTSIDE RECORDS SUMMARY | 2020-12-15 06:10 | CCD ---
Author Author [facility] [employer] Organization [facility] Address Unknown Phone Unavailable Care Team Providers Care Nurse Clinician Name Role Phone Sari Mark Unavailable PROBLEMS Type Condition ICD9-CM Code [id number] Code Onset Dates Condition S tatus W/U Status Risk SNOMED Code Notes Problem Midline cystocele N81.11 Active confirmed 42 1308216 Problem Rectocele N81.6 Active confirmed 518149816 Problem CRP elevated R79.82 Active confirmed 1547414 51442408 Problem Osteopenia, unspecified location M85.80 Active confirmed 935231895 Problem Abnormal mammogram of right breast R92.8 Activ e confirmed 330505566 Problem Menopausal disorder N95.9 Active confirmed 932736015 Problem 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 Active confirmed 160357659 Problem Vaginal wall prolapse N81.10 Active confirmed 041169429 Problem Dry eye H04.129 Active confirmed 798775319 Problem Primary osteoarthritis involving multiple joints M 15.0 Active confirmed 838199612 Problem Acquired absence of both cervix and uterus Z90.710 Active confirmed 456898087 Problem Hx of hysterectomy Z90.710 Active confirmed 044863905 ALLERGIES Allergen (clinical drug ingredient) Drug/Non Drug Allergy do cumented on EMR Reaction Allergy Type Onset Date Status meperidine Demerol([facility] Code:[address]-43) Nausea/Vomiting Drug Aller gy Active Penicillin (For Allergies Use Only) Hives Drug Allerg y Active patch glue (medical patches) Rash Non Drug Allergy Active juniper dow (gin) Anaphylaxis/ rash Non Drug Allergy Active meloxicam Meloxicam([facility] Code:[address]-85) patient is unsure Drug A llergy Active erythromycin Erythromycin([facility] Code:[address]-54) difficulty swallowing Drug Allergy Active ENCOUNTERS from 1950 to 2020-10-29 Encounter Location Date Provider Diagnosis [facility] Breast Care [address] [facility] [phone] [place] [address] Oct, Sari Mark IMMUNIZATIONS No Information SOCIAL [...] Information RESULTS No Results REASON FOR VISIT preop clearance with Dr. Benavides MEDICAL (GENERAL) HISTORY Type Description Date Medical [...] from pelvic ar ea blocking colon - [place] Dr Barnett 07/2017 Surgical History Right breast [...] MEDICARE Part A and B [address] [place] [phone] MUMTAZ LUTZ [facility] [address] [address] [facility] [phone] AYANA ABREU
--- OUTSIDE RECORDS SUMMARY | 2020-12-15 06:10 | CCD ---
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 Name Role Phone Sari Mark Unavailable PROBLEMS Type Condition ICD9-CM Code [id number] Code Onset Dates Condition S tatus W/U Status Risk SNOMED Code Notes Problem Midline cystocele N81.11 Active confirmed 42 6472601 Problem Rectocele N81.6 Active confirmed 776276079 Problem CRP elevated R79.82 Active confirmed 6991171 [id number] Problem Osteopenia, unspecified location M85.80 Active confirmed 681647620 Problem Abnormal mammogram of right breast R92.8 Activ e confirmed 915801695 Problem Menopausal disorder N95.9 Active confirmed 707267356 Problem 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 Active confirmed 434251190 Problem Vaginal wall prolapse N81.10 Active confirmed 803545555 Problem Dry eye H04.129 Active confirmed 977283794 Problem Primary osteoarthritis involving multiple joints M 15.0 Active confirmed 271659241 Problem Acquired absence of both cervix and uterus Z90.710 Active confirmed 835913682 Problem Hx of hysterectomy Z90.710 Active confirmed 123733813 ALLERGIES Allergen (clinical drug ingredient) Drug/Non Drug Allergy do cumented on EMR Reaction Allergy Type Onset Date Status meperidine Demerol(NDC Code:[address]-91) Nausea/Vomiting Drug Aller gy Active Penicillin (For Allergies Use Only) Hives Drug Allerg y Active patch glue (medical patches) Rash Non Drug Allergy Active juniper dow (gin) Anaphylaxis/ rash Non Drug Allergy Active meloxicam Meloxicam(NDC Code:[address]-87) patient is unsure Drug A llergy Active erythromycin Erythromycin([facility] Code:[address]-87) difficulty swallowing Drug Allergy Active ENCOUNTERS from 1950 to 2020-10-31 Encounter Location Date Provider Diagnosis [facility] Breast Care [address] [place] [address] [place] [address] Sep, Sari Mark 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 ; Abnormal mammogram of right breast R92.8 ; Family history of cancer Z80.9 ; Hormone replacement therapy (postmenopausal) Z79.890 and Genetic testing Z13.79 IMMUNIZATIONS No Information SOCIAL HISTORY Tobacco Use: Social History Observation Description Date Details (start date - stop date) Never Smoker Sex Assigned At : Social History Observation Description Sex Assigned At Unknown Tobacco Use: Question Answer Notes Are you a: never smoker never smoker REASON FOR REFERRAL from 1950 to 2020-10-31 Reason New diagnosis of Right breas t IDC, grade 1, awaiting ER/Pr/HEr2. Please evaluate for adjuvant treatment. Diagnosis 1 Invasive ductal carcinoma of right breast (C50.911) Referral Organization [facility] Breast Care Referring Provider First Name Sari Referring Provider Last Name Deedee Referring Provider Specialty Surgery Referred Provider Saniya Yang Referred Provider Specialty Oncology Referral Priority Routine General Notes Sabrina Gibbs 10/19/2020 05:11:01 PM >Referral faxSabrina Rojas 10/29/2020 01:46:46 PM >Call placed to Candice @ [facility] to inquire about scheduling pt. LMOM to return call. Reason New diagnosis of Right breas t IDC. Please evaluate for adjuvant treatment. Diagnosis 1 Invasive ductal carcinoma of right breast (C50.911) Referral Organization [facility] Breast Care Referring Provider First Name Sari Referring Provider Last Name Deedee Referring Provider Specialty Surgery Referred Provider Marin Easley Referred Provider Specialty Radiation Oncology Referral Priority Routine General Notes Sabrina Gibbs 10/19/2020 05:10:24 PM >Referral faxSabrina Dang 10/29/2020 01:47:59 PM >Email sent to Kerri Lopez to inquire about scheduling pt. VITAL SIGNS Weight 143 lbs Sep, Weight-kg 64.86 kg Sep, Height 62 in Sep, BMI 26.15 kg/m2 Sep, Heart Rate 70 /min Sep, Respiratory Rate 18 /min Sep, Temperature 98 degrees Fahrenheit Sep, Oximetry 98 Sep, Blood pressure systolic 130 mm Hg Sep, Blood pressure diastolic 82 mm Hg Sep, MEDICATIONS Medication SIG (Take, Route, Frequency, Duration) [...] Information RESULTS No Results REASON FOR VISIT post R us bx MEDICAL (GENERAL) HISTORY Type Description Date Medical [...] from pelvic ar ea blocking colon - [place] Dr [facility] 07/2017 Surgical History Right breast u/s bx 10/14/20 Hospitalization History surgery / childbirth Hospitalization History as a child to r/o [facility] Goals Section No Information Health Concerns No Information MEDICAL EQUIPMENT No Information MENTAL STATUS No Information FUNCTIONAL STATUS No Information ASSESSMENTS Encounter Date Diagnosis Assessment Notes Treatment Notes Treatm ent Clinical Notes Sep, Invasive ductal carcinoma of right breast (ICD-1 0 - C50.911) RIGHT BREAST CANCER IDC GRADE 1 ER ? [place] ? HER2 ? cT1b (8mm) cN0 cM0 ANATOMOCAL STAGE 1 CLINICAL PROGNOSTIC STAGE: pending ER/[place]/HER2 PLAN: 1. Awaiting ER/[place]/HER2 and final pathology results- will call with results 2. Will obtain MRI breast to delineate extent of disease especially since the screening mammo showed some architectural distortion. BMP will be orders to assess kidney function 3. Will defer surgical procedure planning until MRI results are available 4. Preop testing/ medical clearance will need to be obtained prior to surgery 5. Genetic testing, will provide pt with the kit today 6. Oncotype DX postop if invasive cancer meets testing criteria and no NAC done 7. Referral to Medical Oncology 8. Referral to Radiation Oncology 9. Patients will need to come in with patient due to her memory problems I reviewed the breast imaging and the pathology results with Ms. Lutz and her . We have reviewed the overall breast cancer evaluation and staging. Based on the current information Ms. Lutz was found to have RIGHT INVASIVE DUCTAL CARCINOMA seen in sclerotic stroma, GRADE 1, measuring 8mm on sono. This puts Ms. Lutz's cancer into category T1. We are still waiting for the ER/[place]/Her2 results. Patient does not have palpable axillary lymph nodes on exam. Based on this information, her lymph node status is described as N0 We will get the MRI of the breast to delineate the extent of disease preoperatively especially since the initial screening mammogram was concerned for the architectural distortion in upper outer quadrant. I have discussed various component of multidisciplinary approach to breast cancer which includes local treatments with surgery and radiation therapy and systemic treatments with antihormonal pill and possible chemotherapy. Regarding surgical component of the treatment, base on the current information, patient is a candidate for both breast conserving surgery and for mastectomy. I explained to her that, surgery carries risks and potential complications, most common of which are risk of bleeding, infection and injury to surrounding structures like skin, nipple, muscle, lung, nerves especially long thoracic nerve and thoracodorsal nerve, numbness of the skin and or nipple, scarring, bruising, hematomas, seromas, flap and/or nipple necrosis, lymphedema, nerve injury causing weakness in motor function of upper extremity or scapula, contour deformity, poor cosmetic outcomes and need for additional surgeries. Those risks were explained to the patient and she expressed understanding. We have discussed that with breast conserving surgery there is a higher risk of locoregional recurrence of tumor because there is more andreafski breast tissue left behind. The percentage of locoregional recurrence is lower with mastectomy than with breast conserving surgery but it is not zero as it is impossible to remove 100% of all breast tissue cells during mastectomy. There is also 10-20% chance of positive margins with breast conserving surgery which will warrant additional surgery to clear those margins. I also explained that with breast conserving surgery she may need to have radiation therapy in order to assure equal survival between the breast conservative treatment and mastectomy. Radiation therapy after mastectomy will be warranted only if the final mastectomy margins are positive or if lymph nodes are positive. We have also discussed that if she chooses mastectomy, she is entitled to reconstruction if she wishes to have it. Reconstruction options will be discussed in details with plastic surgeon. I have explained to the patient that reconstruction is considered part of breast cancer treatment and is covered by insurance. I explained that in cases of invasive cancer, we pursue sentinel lymph node biopsy in fit patients in addition to removal of the tumor from the breast. I explained that this is done to test the very first lymph nodes draining the breast for presence of cancer. This will be done with radionucleotide injection and possibly with blue dye tracer. If the lymph nodes contain cancer, depending on what surgery was performed and how many lymph nodes are positive, additional surgery and/ or radiation therapy to axilla may be warranted as well. I will send a prescription for the EMLA cream to be applied to the affected nipple in order to decrease discomfort of injections. Regarding evaluation of contralateral breast, she had a screening mammogram done on 09/23/2020. This did not show any suspicious lesions in the contralateral breast. I am planning to get MRI of the breast to delineate extent of disease and to evaluate contralateral breast. Since patient was diagnosed with breast cancer, she qualifies for genetic testing. I provided the genetic testing counseling -see the note below. At this time, patient wishes to pursue genetic testing- the blood kit was provided today I discussed with the patient and her family that Oncotype Dx is used to predict the probability of Hormone (+) Her2(-) cancer coming back. I explained that if the test comes back with a high score, chemotherapy may be considered. I will place referral for Medical Oncology. This appointment can be scheduled after surgery. I explained to the patient that she may need to follow up with radiation oncology if she wants to pursue breast conserving surgery or if lymph nodes or mastectomy margins are positive. I will place this referral. She can schedule appointment with [facility] after surgery. Finally, I informed patient that an appointment will be made with her primary care doctor as we will need a surgical clearance, latest labs and imaging (CBC, BMP, CXR,EKG). Of note, patient has memory problems and her / caregiver should be cosigning her surgical consent. She follows with neurology for her cognitive disfunction and has MRI of brain scheduled this Monday. All questions were answered. Patient and her family agree with the plan Sep, Abnormal mammogram of right breast (ICD-10 - [...] to known cancer at 12:00 3 CFN. Sep, Family history of cancer (ICD-10 - Z80.9) Patient participated in our Cancer screening program and she was not found to be at increased risk for cancer based on her family history. She does not qualify for genetic testing or high risk screening with MRI of the breast based on her family history. Her TC score in 2.4% Sep, Hormone replacement therapy (postmenopausal) (IC D-10 - Z79.890) Patient reports she is on Estrodial tablets. She states she is trying to wean off. I explained that post menopausal women taking hormone replacement therapy are at an increased risk of breast cancer. Since patient now has confirmed malignancy which will likely will be ER/[place] +, I recommended for patient to stop hormone replacement therapy now. Sep, Genetic testing (ICD-10 - Z13.79) Patient participated in our cancer screening program and she was identified as a person who may be eligible for genetic testing due to her personal diagnosis of breast cancer. Possible outcomes of genetic testing were discussed with patient with emphasis on the fact that the majority of cancers are not related to germline mutations but are rather due to somatic mutations. I have explained that the genetic testing can come back as positive for specific pathological gene mutation, as negative, or as variant of unknown significance (VUS) which means that there is duration in the gene however we do not have enough information to determine the significance importance of this ulceration. I explained to the patient that we do not asked on VUS and treat them as negative until they are reclassified as pathologically significant mutation or benign alteration. We have discussed that regardless of test outcome patient cannot have her health insurance denied in the future. Patient is interested in proceeding with genetic testing. We will provide her with the blood kit today. We will update her about the results of genetic testing when the test is completed My patient's relatives who have had breast and/or ovarian cancer are not available for genetic testing because: ___They are . ___My patient does not have any contact with affected relatives. ___The affected relatives refused testing. _x_ Pt has a personal history of breast cancer. This patient does not have a known hereditary cancer genetic mutation on either side of the family. This patient does not have known Ashkenazi Scientology ancestry on either side of the family. Assessment & Plan: This patient's personal and/or family history of cancer is suggestive of a hereditary cancer syndrome. Patient meets the criteria for genetic testing established by medical society guidelines and I recommended that the patient pursues testing based on these criteria. Today we discussed how genetics may affect cancer susceptibility and the options, alternatives, benefits, limitations and potential outcomes of genetic testing for hereditary cancer syndromes. Patient was also made aware of the limitations of testing an unaffected individual for a cancer predisposition syndrome. The genetic test recommended for patient today is called the Integrated BRACanlysis with Quick Hang. The Integrated Quick Hang analyzes 35 genes including BRCA1, BRCA2, MLH1, MSH2, MSH6, and PMS2 to identify germline genetic mutations that cause an increased risk for eight primary cancers including: breast, ovarian, endometrial, colorectal, gastric, pancreatic, prostate, and melanomas. Due to significant clinical overlap in hereditary cancer susceptibility genes, a molecular diagnosis of a hereditary cancer condition is necessary to clarify the cancer risks patient carries and the screening, management, and treatment options most appropriate for patient. Sep, Other TOTAL TIME SPENT FOR CARE OF THIS PATIENT AT THIS ENCOUNTER: 61 min I, Dr. Mark, reviewed the medical note prepared by the scribe and confirm the findings and the discussed plan. PLAN OF TREATMENT Medication Medication Name Sig Start Date Stop Date Lidocaine-Prilocaine 2.5-2.5 % apply entire tube to ri ght nipple and surrounding tissue 2 hours before coming to hospital for surgery. Cover with plastic Externally once for 1 day Treatment Notes Assessment Notes Clinical Notes Invasive ductal carcinoma of right breast RIGHT BREAST CANCERIDC GRADE 1ER ? [place] ? HER2 ?cT1b (8mm) cN0 [id number] STAGE 1CLINICAL PROGNOSTIC STAGE: pending ER/[place]/VFL5EUNS:1. Awaiting ER/[place]/HER2 and final pathology results- will call with results2. Will obtain MRI breast to delineate extent of disease especially since the screening mammo showed some architectural distortion. BMP will be orders to assess kidney function3. Will defer surgical procedure planning until MRI results are available4. Preop testing/ medical clearance will need to be obtained prior to surgery5. Genetic testing, will provide pt with the kit today6. Oncotype DX postop if invasive cancer meets testing criteria and no NAC done7. Referral to Medical Oncology8. Referral to Radiation Oncology9. Patients will need to come in with patient due to her memory problemsI reviewed the breast imaging and the pathology results with Ms. Lutz and her . We have reviewed the overall breast cancer evaluation and staging.Based on the current information Ms. Lutz was found to have RIGHT INVASIVE DUCTAL CARCINOMA seen in sclerotic stroma, GRADE 1, measuring 8mm on sono. This puts Ms. Lutz's cancer into category T1. We are still waiting for the ER/[place]/Her2 results.Patient does not have palpable axillary lymph nodes on exam. Based on this information, her lymph node status is described as N0We will get the MRI of the breast to delineate the extent of disease preoperatively especially since the initial screening mammogram was concerned for the architectural distortion in upper outer quadrant.I have discussed various component of multidisciplinary approach to breast cancer which includes local treatments with surgery and radiation therapy and systemic treatments with antihormonal pill and possible chemotherapy.Regarding surgical component of the treatment, base on the current information, patient is a candidate for both breast conserving surgery and for mastectomy.I explained to her that, surgery carries risks and potential complications, most common of which are risk of bleeding, infection and injury to surrounding structures like skin, nipple, muscle, lung, nerves especially long thoracic nerve and thoracodorsal nerve, numbness of the skin and or nipple, scarring, bruising, hematomas, seromas, flap and/or nipple necrosis, lymphedema, nerve injury causing weakness in motor function of upper extremity or scapula, contour deformity, poor cosmetic outcomes and need for additional surgeries. Those risks were explained to the patient and she expressed understanding.We have discussed that with breast conserving surgery there is a higher risk of locoregional recurrence of tumor because there is more andreafski breast tissue left behind. The percentage of locoregional recurrence is lower with mastectomy than with breast conserving surgery but it is not zero as it is impossible to remove 100% of all breast tissue cells during mastectomy. There is also 10-20% chance of positive margins with breast conserving surgery which will warrant additional surgery to clear those margins. I also explained that with breast conserving surgery she may need to have radiation therapy in order to assure equal survival between the breast conservative treatment and mastectomy. Radiation therapy after mastectomy will be warranted only if the final mastectomy margins are positive or if lymph nodes are positive.We have also discussed that if she chooses mastectomy, she is entitled to reconstruction if she wishes to have it. Reconstruction options will be discussed in details with plastic surgeon. I have explained to the patient that reconstruction is considered part of breast cancer treatment and is covered by insurance.I explained that in cases of invasive cancer, we pursue sentinel lymph node biopsy in fit patients in addition to removal of the tumor from the breast. I explained that this is done to test the very first lymph nodes draining the breast for presence of cancer. This will be done with radionucleotide injection and possibly with blue dye tracer. If the lymph nodes contain cancer, depending on what surgery was performed and how many lymph nodes are positive, additional surgery and/ or radiation therapy to axilla may be warranted as well. I will send a prescription for the EMLA cream to be applied to the affected nipple in order to decrease discomfort of injections.Regarding evaluation of contralateral breast, she had a screening mammogram done on 09/23/2020. This did not show any suspicious lesions in the contralateral breast. I am planning to get MRI of the breast to delineate extent of disease and to evaluate contralateral breast.Since patient was diagnosed with breast cancer, she qualifies for genetic testing. I provided the genetic testing counseling -see the note below. At this time, patient wishes to pursue genetic testing- the blood kit was provided todayI discussed with the patient and her family that Oncotype Dx is used to predict the probability of Hormone (+) Her2(- ) cancer coming back. I explained that if the test comes back with a high score, chemotherapy may be considered.I will place referral for Medical Oncology. This appointment can be scheduled after surgery.I explained to the patient that she may need to follow up with radiation oncology if she wants to pursue breast conserving surgery or if lymph nodes or mastectomy margins are positive. I will place this referral. She can schedule appointment with [facility] after surgery.Finally, I informed patient that an appointment will be made with her primary care doctor as we will need a surgical clearance, latest labs and imaging (CBC, BMP, CXR,EKG).Of note, patient has memory problems and her / caregiver should be cosigning her surgical consent. She follows with neurology for her cognitive disfunction and has MRI of brain scheduled this Monday.All questions were answered. Patient and her family agree with the plan Abnormal mammogram of right breast s/p Right ultrasoun d guided biopsy on 10/14/2020 with [facility] [place] aboveInitial screening mammogram showed possible architectural distortion [...] family history. She does not qualify for genetic testing or high risk screening with MRI of the breast based on her family history.Her TC score in 2.4% Hormone replacement therapy (postmenopausal) Patient r eports she is on Estrodial tablets. She states she is trying to wean off. I explained that post menopausal women taking hormone replacement therapy are at an increased risk of breast cancer.Since patient now has confirmed malignancy which will likely will be ER/[place] +, I recommended for patient to stop hormone replacement therapy now. Genetic testing Patient participated in our cancer screening program and she was identified as a person who may be eligible for genetic testing due to her personal diagnosis of breast cancer.Possible outcomes of genetic testing were discussed with patient with emphasis on the fact that the majority of cancers are not related to germline mutations but are rather due to somatic mutations.I have explained that the genetic testing can come back as positive for specific pathological gene mutation, as negative, or as variant of unknown significance (VUS) which means that there is duration in the gene however we do not have enough information to determine the significance importance of this ulceration. I explained to the patient that we do not asked on VUS and treat them as negative until they are reclassified as pathologically significant mutation or benign alteration.We have discussed that regardless of test outcome patient cannot have her health insurance denied in the future.Patient is interested in proceeding with genetic testing. We will provide her with the blood kit today. We will update her about the results of genetic testing when the test is completed My patient's relatives who have had ebenezer st and/or ovarian cancer are not available for genetic testing because:___They are .___My patient does not have any contact with affected relatives.___The affected relatives refused testing._x_ Pt has a personal history of breast cancer.This patient does not have a known hereditary cancer genetic mutation on either side of the family.This patient does not have known Ashkenazi Scientology ancestry on either side of the family.Assessment & Plan:This patient's personal and/or family history of cancer is suggestive of a hereditary cancer syndrome. Patient meets the criteria for genetic testing established by medical society guidelines and I recommended that the patient pursues testing based on these criteria.Today we discussed how genetics may affect cancer susceptibility and the options, alternatives, benefits, limitations and potential outcomes of genetic testing for hereditary cancer syndromes. Patient was also made aware of the limitations of testing an unaffected individual for a cancer predisposition syndrome. The genetic test recommended for patient today is called the Integrated BRACanlysis with Quick Hang. The Integrated Quick Hang analyzes 35 genes including BRCA1, BRCA2, MLH1, MSH2, MSH6, and PMS2 to identify germline genetic mutations that cause an increased risk for eight primary cancers including: breast, ovarian, endometrial, colorectal, gastric, pancreatic, prostate, and melanomas. Due to significant clinical overlap in hereditary cancer susceptibility genes, a molecular diagnosis of a hereditary cancer condition is necessary to clarify the cancer risks patient carries and the screening, management, and treatment options most appropriate for patient. Treatment Notes Test Name Order Date MRI Breast Bilat with and w/o Contrast 2020-10-19 Future Test Test Name Order Date Basic Metabolic Profile (BMP) [id number] Referrals Referral Date Details New diagnosis of Right breas t IDC, grade 1, awaiting ER/Pr/HEr2. Please evaluate for adjuvant treatment., Saniya Lamb SMP New diagnosis of Right breas t IDC. Please evaluate for adjuvant treatment., Marin Easley Insurance Providers Payer Name Payer Address Payer Phone Insured Name Patient Relati onship to Insured Coverage Start Date Coverage End Date MEDICARE Part A and B [address] [facility] [phone] MUMTAZ LUTZ R [facility] [address] [address] [facility] [phone] AYANA ABREU
--- OUTSIDE RECORDS SUMMARY | 2020-12-15 06:10 | CCD | Summary of Care ---
Author Author [facility] Address Unknown Phone Unavailable Care Team Providers Care Sterile Supervisor Name Role Phone Ted Benavides MD PCP Encounter Details Care Team Description Date Type Department 11/16/2020 [facility] Anatomical Encounter Pathology at [place] [address] [place] [address] Allergies Comments Active Allergy Reactions Severity Noted Date rash Amoxicillin Rash Low 02/25/2013 Meperidine Nausea Only 02/25/2013 Erythromycin Shortness Of High 02/25/2013 Breath, Other (See Comments) Penicillins Rash Medium 05/28/2013 documented as of this encounter (statuses as of 11/17/2020) Medications End Date Status Medication Sig Dispensed [...] as of this encounter (statuses as of 11/17/2020) Active Problems Problem Noted Date Mild cognitive impairment, so stated 08/04/2020 Hypertension 04/02/2020 Hypercholesterolemia 04/02/2020 Aortic insufficiency 04/02/2020 Tinnitus 04/02/2020 Osteopenia 04/02/2020 Mitral valve regurgitation 04/02/2020 Skin cancer, basal cell, Right lower eye lid 021 [facility] arthritis, thumb, degenerative 02/28/2013 Labyrinthitis Vitamin D deficiency documented as of this encounter (statuses as of 11/17/2020) Immunizations Name Administration Dates Next Due documented [...] Description Date Type Specialty Albertina Mijares MD [address] [place] [address] [address], [address] [place] [address] 01/25/2021 Office Visit Neurology Date/Time Name Type Priority Associated Diag noses 11/16/2020 2:52 PM EDT Surgical pathology Pathology and Routine consult Cytology Order Schedule Name Type Priority Associated Diag noses Once for 1 Occurrences starting 11/17/19 21 until 11/16/2020 Surgical pathology Pathology and Routine consult Cytology Health Maintenance Due Date Last Done Comments Hepatitis C Screening (B. 1950 8810-2735) MMR Vaccines (1 of 1 - 12/31/1951 [...]
--- OUTSIDE RECORDS SUMMARY | 2020-12-15 06:11 | CCD ---
Author Author [facility] [employer] [facility] [employer] Organization [facility] [employer] Address Unknown Phone Unavailable Care Team Providers Care Blood Bank Calendar Control Clerk Name Role Phone Sari Mark Unavailable PROBLEMS Type Condition ICD9-CM Code [id number] Code Onset Dates Condition S tatus W/U Status Risk SNOMED Code Notes Problem Menopausal disorder N95.9 Active confirmed 030477522 Problem Midline cystocele N81.11 Active confirmed 42 7235202 Problem Rectocele N81.6 Active confirmed 348606677 Problem Hx of hysterectomy Z90.710 Active confirmed 896239037 Problem Vaginal wall prolapse N81.10 Active confirmed 168256357 Problem Abnormal mammogram of right breast R92.8 Activ e confirmed 007805070 Problem Osteopenia, unspecified location M85.80 Active confirmed 693933267 Problem CRP elevated R79.82 Active confirmed 3418924 39207112 Problem Dry eye H04.129 Active confirmed 075964322 Problem Primary osteoarthritis involving multiple joints M 15.0 Active confirmed 266115056 Problem Acquired absence of both cervix and uterus Z90.710 Active confirmed 598509666 ALLERGIES Allergen (clinical drug ingredient) Drug/Non Drug Allergy do cumented on EMR Reaction Allergy Type Onset Date Status meperidine Demerol(NDC Code:[address]-25) Nausea/Vomiting Drug Aller gy Active Penicillin (For Allergies Use Only) Hives Drug Allerg y Active patch glue (medical patches) Rash Non Drug Allergy Active juniper dow (gin) Anaphylaxis/ rash Non Drug Allergy Active meloxicam Meloxicam(NDC Code:[address]-58) patient is unsure Drug A llergy Active erythromycin Erythromycin(NDC Code:[address]-75) difficulty swallowing Drug Allergy Active ENCOUNTERS from 1950 to 2020-10-15 Encounter Location Date Provider Diagnosis [facility] Breast Care [address] [facility] [phone] [place] [address] Sep, Sari Mark Abnormal mammogram of right breast R92.8 ; Family history of cancer Z80.9 and Hormone replacement therapy (postmenopausal) Z79.890 IMMUNIZATIONS No Information SOCIAL HISTORY Tobacco Use: Social History Observation Description Date Details (start date - stop date) Never Smoker Sex Assigned At : Social History Observation Description Sex Assigned At Unknown Tobacco Use: Question Answer Notes Are you a: never smoker never smoker REASON FOR REFERRAL No Information VITAL SIGNS Weight 143 lbs Sep, Weight-kg 64.86 kg Sep, Height 62 in Sep, BMI 26.15 kg/m2 Sep, Heart Rate 74 /min Sep, Respiratory Rate 18 /min Sep, Temperature 97.7 degrees Fahrenheit Sep, Oximetry 98 Sep, Blood pressure systolic 138 mm Hg Sep, Blood pressure diastolic 80 mm Hg Sep, MEDICATIONS Medication SIG (Take, Route, Frequency, Duration) Notes Start Da te End Date Status Vitamin D3 Ultra Strength 5000 UNIT 1 capsule Orally every few days Not-Taking Premarin 0.625 MG/GM 1/2 Vaginal twice a week for 90 days Not-Taking Multivital - as directed Orally Acti ve Antivert 1 oral as needed Active Restasis 0.05 % 1 drop into affected eye Ophthalmic Twice a day as ne eded Active Vitamin B12 100 MCG as directed Orally daily/occ Active amLODIPine Besylate 2.5 MG 1 tablet Orally Once a day Active Prevagen 10 MG as directed Orally No t-Taking Estradiol 1 MG 1 tablet Orally Once a day pt states she is weaning off from this medication, takes it qod Active Folic Acid 1 MG 1 tablet Orally Once a day for 30 day(s) Active PROCEDURES No Information RESULTS No Results REASON FOR VISIT RIGHT breast Cat 4, [facility] bx MEDICAL (GENERAL) HISTORY Type Description Date [...] from pelvic ar ea blocking colon - [place] Dr Barnett 07/2017 Hospitalization History surgery / childbirth Hospitalization History as a child to r/o JRA Goals Section No Information Health Concerns No Information MEDICAL EQUIPMENT No Information MENTAL STATUS No Information FUNCTIONAL STATUS No Information ASSESSMENTS Encounter Date Diagnosis Assessment Notes Treatment Notes Treatm ent Clinical Notes Sep, Abnormal mammogram of right breast (ICD-10 - R92 .8) I reviewed the images and radiology reports with Ms. Lutz and explained that her mammogram noted a new right breast lesion. Sonographic correlate was found at 12:00 2 CFN. This lesion was considered suspicious and tissue sampling was recommended to rule out cancer. Since the lesion was seen on the ultrasound, the biopsy can be done with ultrasound guidance. I briefly described the procedure to the patient. I explained that after the biopsy a marking clip will be placed at the site of biopsy to allow easier localization of the lesion in case the biopsy comes back concerning. After the biopsy she will have a gentle mammogram to confirm the position of the clip. I briefly described risk and possible complications of the procedure including bleeding, infection, and injury to surrounding structures (nipple, skin, muscle, and lung). I asked patient not to take any blood thinning medication including aspirin, ibuprofen and or Excedrin 5 days before her biopsy. We'll schedule her for a right breast ultrasound guided biopsy with clip placement and post biopspy right breast mammogram on October 14 at 1PM. All questions were answered. Patient agrees with the plan Sep, Family history of cancer (ICD-10 - [...] at an increased risk of breast cancer. I strongly encouraged her to stop her treatment. I will defer final decision to her and her ENGINEERING DRAFTER team Sep, Other Time spent face to face with the patient with over 50 % of time spent counseling the patient : 43 min Time spent reviewing the chart, requested consult information, radiology reports and imagin min TOTAL TIME SPENT FOR CARE OF THIS PATIENT AT THIS ENCOUNTER: 63 min I, Dr. Mark, reviewed the medical note prepared by the scribe and confirm the findings and the discussed plan. PLAN OF TREATMENT Treatment Notes Assessment Notes Clinical Notes Abnormal mammogram of right breast I reviewed the imag es and radiology reports with Ms. Lutz and explained that her mammogram noted a new right breast lesion. Sonographic correlate was found at 12:00 2 CFN. This lesion was consider ed suspicious and tissue sampling was recommended to rule out cancer.Since the lesion was seen on the ultrasound, the biopsy can be done with ultrasound guidance. I briefly described the procedure to the patient. I explained that after the biopsy a marking clip will be placed at the site of biopsy to allow easier localization of the lesion in case the biopsy comes back concerning. After the biopsy she will have a gentle mammogram to confirm the position of the clip.I briefly described risk and possible complications of the procedure including bleeding, infection, and injury to surrounding structures (nipple, skin, muscle, and lung).I asked patient not to take any blood thinning medication including aspirin, ibuprofen and or Excedrin 5 days before her biopsy.We'll schedule her for a right breast ultrasound guided biopsy with clip placement and post biopspy right breast mammogram on October 14 at 1PM.All questions were answered. Patient agrees with the plan Family history of cancer Patient participated in [...] at an increased risk of breast cancer. I strongly encouraged her to stop her treatment.I will defer final decision to her and her ENGINEERING DRAFTER team Treatment Notes Test Name Order Date [facility] Mario Diagnostic Unilateral (Ultrasound if Indicat ed) (3D Mammo) 2020-10-08 [facility] US Guided Breast Biopsy (Clip Placement if Indicat ed) 2020-10-08 Next Appt Details Provider Name:Sari Mark, 17-10-22 03:30:00 PM, [address] [place] [address], , [place], [place], [facility], Insurance Providers Payer Name Payer Address Payer Phone Insured Name Patient Relati onship to Insured Coverage Start Date Coverage End Date MEDICARE Part A and B [address] [facility] [phone] MUMTAZ LUTZ [facility] [address] [address] [facility] [phone] AYANA ABREU
--- OUTSIDE RECORDS SUMMARY | 2020-12-15 06:11 | CCD ---
Author Author [facility] [employer] [facility] Syst [employer]s Organization [facility] [employer] Address Unknown Phone Unavailable Care Team Providers Care Cap Machine Operator Name Role Phone Sari Mark Unavailable PROBLEMS Type Condition ICD9-CM Code [id number] Code Onset Dates Condition S tatus W/U Status Risk SNOMED Code Notes Problem Menopausal disorder N95.9 Active confirmed 287385059 Problem Midline cystocele N81.11 Active confirmed 42 6435595 Problem Rectocele N81.6 Active confirmed 710347866 Problem Hx of hysterectomy Z90.710 Active confirmed 357855226 Problem Vaginal wall prolapse N81.10 Active confirmed 153202568 Problem Abnormal mammogram of right breast R92.8 Activ e confirmed 132594043 Problem Osteopenia, unspecified location M85.80 Active confirmed 770666516 Problem CRP elevated R79.82 Active confirmed 4277017 78917545 Problem Dry eye H04.129 Active confirmed 931877343 Problem Primary osteoarthritis involving multiple joints M 15.0 Active confirmed 754629638 Problem Acquired absence of both cervix and uterus Z90.710 Active confirmed 996696082 ALLERGIES Allergen (clinical drug ingredient) Drug/Non Drug Allergy do cumented on EMR Reaction Allergy Type Onset Date Status meperidine Demerol(NDC Code:[address]-80) Nausea/Vomiting Drug Aller gy Active Penicillin (For Allergies Use Only) Hives Drug Allerg y Active patch glue (medical patches) Rash Non Drug Allergy Active juniper dow (gin) Anaphylaxis/ rash Non Drug Allergy Active meloxicam Meloxicam(NDC Code:[address]-60) patient is unsure Drug A llergy Active erythromycin Erythromycin(NDC Code:[address]-64) difficulty swallowing Drug Allergy Active ENCOUNTERS from 1950 to 2020-10-15 Encounter Location Date Provider Diagnosis [facility] Breast Care [facility] [phone] [place] [address] Sep, Sari Mark IMMUNIZATIONS No Information SOCIAL [...] Information RESULTS No Results REASON FOR VISIT 1D POST BX MEDICAL (GENERAL) HISTORY Type Description Date Medical [...] from pelvic ar ea blocking colon - [place] Dr Barnett 07/2017 Hospitalization History surgery / childbirth Hospitalization History as a child to r/o JRA Goals Section No Information Health Concerns No Information MEDICAL EQUIPMENT No Information MENTAL STATUS No Information FUNCTIONAL STATUS No Information ASSESSMENTS No Information PLAN OF TREATMENT Next Appt Details Provider Name:Sari Castellon [place], 20 17-10-22 03:30:00 PM, [address] [place] [address], , [place], [address], Insurance Providers Payer Name Payer Address Payer Phone Insured Name Patient Relati onship to Insured Coverage Start Date Coverage End Date MEDICARE Part A and B [address] [facility] [phone] MUMTAZ LUTZ self R [facility] [address] [address] [facility] [phone] AYANA ABREU
--- OUTSIDE RECORDS SUMMARY | 2020-12-15 06:11 | CCD ---
Author Author [facility] [employer] [facility] [employer] Organization [facility] [employer] Address Unknown Phone Unavailable Care Team Providers Care Commercial Lines Manager Name Role Phone Sari Mark Unavailable PROBLEMS Type Condition ICD9-CM Code NKX07-NM Code Onset Dates Condition S tatus W/U Status Risk SNOMED Code Notes Problem Menopausal disorder N95.9 Active confirmed 837000012 Problem Midline cystocele N81.11 Active confirmed 42 4631549 Problem Rectocele N81.6 Active confirmed 112384791 Problem Hx of hysterectomy Z90.710 Active confirmed 531601320 Problem Vaginal wall prolapse N81.10 Active confirmed 410625339 Problem Abnormal mammogram of right breast R92.8 Activ e confirmed 307750708 Problem Osteopenia, unspecified location M85.80 Active confirmed 929741065 Problem CRP elevated R79.82 Active confirmed 9230740 90587373 Problem Dry eye H04.129 Active confirmed 089066764 Problem Primary osteoarthritis involving multiple joints M 15.0 Active confirmed 450881942 Problem Acquired absence of both cervix and uterus Z90.710 Active confirmed 570575379 ALLERGIES Allergen (clinical drug ingredient) Drug/Non Drug Allergy do cumented on EMR Reaction Allergy Type Onset Date Status meperidine Demerol(NDC Code:[address]-03) Nausea/Vomiting Drug Aller gy Active Penicillin (For Allergies Use Only) Hives Drug Allerg y Active patch glue (medical patches) Rash Non Drug Allergy Active juniper dow (gin) Anaphylaxis/ rash Non Drug Allergy Active meloxicam Meloxicam(NDC Code:[address]-67) patient is unsure Drug A llergy Active erythromycin Erythromycin(NDC Code:[address]-69) difficulty swallowing Drug Allergy Active ENCOUNTERS from 1950 to 2020-10-15 Encounter Location Date Provider Diagnosis [facility] Breast Care [facility] [phone] [place] [address] Sep, Sari Markstanford IMMUNIZATIONS No Information SOCIAL HISTORY Tobacco Use: [...] Information RESULTS No Results REASON FOR VISIT R US Bx 12:00 w clip + R mammo w emery MEDICAL (GENERAL) HISTORY Type Description Date Medical [...] from pelvic ar ea blocking colon - [place] Dr Barnett 07/2017 Hospitalization History surgery / childbirth Hospitalization History as a child to r/o JRA Goals Section No Information Health Concerns No Information MEDICAL EQUIPMENT No Information MENTAL STATUS No Information FUNCTIONAL STATUS No Information ASSESSMENTS No Information PLAN OF TREATMENT Next Appt Details Provider Name:Sari Mark, 17-10-22 03:30:00 PM, [address] [facility], , [place], [address], Insurance Providers Payer Name Payer Address Payer Phone Insured Name Patient Relati onship to Insured Coverage Start Date Coverage End Date [facility] [address] [id number] [facility] [id number] AYANA ABREU MEDICARE Part A and B [address] [facility] [phone] MUMTAZ LUTZ self
--- OUTSIDE RECORDS SUMMARY | 2020-12-15 06:11 | CCD ---
Author Author [facility] Organization [facility] Address Unknown Phone Unavailable Care Team Providers Care Law Instructor Name Role Phone Remberto MCCALL MD Unavailable Unavailable EMERTON, Remberto COURTNEY MD Unavailable Unavailable EMERTON, Remberto COURTNEY MD Unavailable Unavailable EMERTON, Remberto COURTNEY MD Unavailable Unavailable EMERTON, Remberto COURTNEY MD Unavailable Unavailable EMERTON, Remberto COURTNEY MD Unavailable Unavailable EMERTON, Remberto COURTNEY MD Unavailable Unavailable EMERTON, Remberto COURTNEY MD Unavailable Unavailable EMERTON, Remberto COURTNEY MD Unavailable Unavailable EMERTON, Remberto COURTNEY MD Unavailable Unavailable EMERTON, Remberto COURTNEY MD Unavailable Unavailable EMERTON, Remberto COURTNEY MD Unavailable Unavailable EMERTON, Remberto COURTNEY MD Unavailable Unavailable EMERTON, Remberto COURTNEY MD Unavailable Unavailable EMERTON, Remberto COURTNEY MD Unavailable Unavailable EMERTON, A SHEWRIN MD Unavailable Unavailable EMERTON, A SHERWIN MD Unavailable Unavailable EMERTON, A SHERWIN MD Unavailable Unavailable EMERTON, A SHERWIN MD Unavailable Unavailable EMERTON, A SHERWIN MD Unavailable Unavailable EMERTON, A SHERWIN MD Unavailable Unavailable EMERTON, A SHERWIN MD Unavailable Unavailable EMERTON, A SHERWIN MD Unavailable Unavailable EMERTON, A SHERWIN MD Unavailable Unavailable EMERTON, A SHERWIN MD Unavailable Unavailable EMERTON, A SHERWIN MD Unavailable Unavailable EMERTON, A SHERWIN MD Unavailable Unavailable EMERTON, A SHERWIN MD Unavailable Unavailable EMERTON, A SHERWIN MD Unavailable Unavailable EMERTON, A SHERWIN MD Unavailable Unavailable EMERTON, A HSERWIN MD Unavailable Unavailable EMERTON, A SHERWIN MD Unavailable Unavailable EMERTON, A SHERWIN MD Unavailable Unavailable EMERTON, A SHERWIN MD Unavailable Unavailable EMERTON, A SHERWIN MD Unavailable Unavailable EMERTON, A SHERWIN MD Unavailable Unavailable EMERTON, A SHERWIN MD Unavailable Unavailable EMERTON, A SHERWIN MD Unavailable Unavailable EMERTON, A SHERWIN MD Unavailable Unavailable EMERTON, A SHERWIN MD Unavailable Unavailable EMERTON, A SHERWIN MD Unavailable Unavailable EMERTON, A SHERWIN MD Unavailable Unavailable EMERTON, A SHERWIN MD Unavailable Unavailable EMERTON, A SHERWIN MD Unavailable Unavailable EMERTON, A SHERWIN MD Unavailable Unavailable EMERTON, A SHERWIN MD Unavailable Unavailable EMERTON, A SHERWIN MD Unavailable Unavailable EMERTON, A SHERWIN MD Unavailable Unavailable EMERTON, A SHERWIN MD Unavailable Unavailable EMERTON, A SHERWIN MD Unavailable Unavailable EMERTON, A SHERWIN MD Unavailable Unavailable EMERTON, A SHERWIN MD Unavailable Unavailable EMERTON, A SHERWIN MD Unavailable Unavailable EMERTON, A SHERWIN MD Unavailable Unavailable EMERTON, A SHERWIN MD Unavailable Unavailable EMERTON, A SHERWIN MD Unavailable Unavailable EMERTON, A SHERWIN MD Unavailable Unavailable EMERTON, A SHERWIN MD Unavailable Unavailable EMERTON, A SHERWIN MD Unavailable Unavailable EMERTON, A SHERWIN MD Unavailable Unavailable EMERTON, A SHERWIN MD Unavailable Unavailable EMERTON, A SHERWIN MD Unavailable Unavailable EMERTON, A SHERWIN MD Unavailable Unavailable EMERTON, A SHERWIN MD Unavailable Unavailable EMERTON, A SHERWIN MD Unavailable Unavailable EMERTON, A SHERWIN MD Unavailable Unavailable EMERTON, A SHERWIN MD Unavailable Unavailable EMERTON, A SHERWIN MD Unavailable Unavailable EMERTON, A SHERWIN MD Unavailable Unavailable EMERTON, A SHERWIN MD Unavailable Unavailable EMERTON, A SHERWIN MD Unavailable Unavailable EMERTON, A SHERWIN MD Unavailable Unavailable EMERTON, Remberto COURTNEY MD Unavailable Unavailable EMERTON, Remberto COURTNEY MD Unavailable Unavailable EMERTON, Remberto COURTNEY MD Unavailable Unavailable EMERTON, Remberto COURTNEY MD Unavailable Unavailable EMERTON, Remberto COURTNEY MD Unavailable Unavailable Chabrashvili, Tinatin Unavailable Chabrashvili, Tinatin Unavailable Chabrashvili, Tinatin Unavailable Chabrashvili, Tinatin Unavailable Chabrashvili, Tinatin Unavailable Chabrashvili, Tinatin Unavailable Chabrashvili, Tinatin Unavailable Chabrashvili, Tinatin Unavailable Chabrashvili, Tinatin Unavailable Chabrashvili, Tinatin Unavailable Chabrashvili, Tinatin Unavailable Chabrashvili, Tinatin Unavailable Chabrashvili, Tinatin Unavailable Chabrashvili, Tinatin Unavailable CHABRASHVILI, TINATIN Unavailable Unavailable DOMBROWSKA, K MARIO DO Unavailable Unavailable DOMBROWSKA, K MARIO DO Unavailable Unavailable DOMBROWSKA, K MARIO DO Unavailable Unavailable DOMBROWSKA, K MARIO DO Unavailable Unavailable DOMBROWSKA, K MARIO DO Unavailable Unavailable DOMBROWSKA, K MARIO DO Unavailable Unavailable DOMBROWSKA, K MARIO DO Unavailable Unavailable DOMBROWSKA, K MARIO DO Unavailable Unavailable DOMBROWSKA, K MARIO DO Unavailable Unavailable DOMBROWSKA, K MARIO DO Unavailable Unavailable DOMBROWSKA, K MARIO DO Unavailable Unavailable DOMBROWSKA, K MARIO DO Unavailable Unavailable DOMBROWSKA, K MARIO DO Unavailable Unavailable DOMBROWSKA, K MARIO DO Unavailable Unavailable DOMBROWSKA, K MARIO DO Unavailable Unavailable DOMBROWSKA, K MARIO DO Unavailable Unavailable DOMBROWSKA, K MARIO DO Unavailable Unavailable DOMBROWSKA, K MARIO DO Unavailable Unavailable DOMBROWSKA, K MARIO DO Unavailable Unavailable DOMBROWSKA, K MARIO DO Unavailable Unavailable DOMBROWSKA, K MARIO DO Unavailable Unavailable DOMBROWSKA, K MARIO DO Unavailable Unavailable MEDENT_520, [id number] Unavailable [phone] MEDENT_520, [id number] Unavailable [phone] Brennan Dobbins, Remberto Butler MD, FACS Unavailable Unavailable Brennan Dobbins, Remberto Butler MD, FACS Unavailable Unavailable Brennan Dobbins, Remberto Butler MD, FACS Unavailable Unavailable Brennan Dobbins, Remberto Butler MD, FACS Unavailable Unavailable Brennan Dobbins, Remberto Butler MD, FACS Unavailable Unavailable Brennan Dobbins, Remberto Butler MD, FACS Unavailable Unavailable Brennan Dobbins, Remberto Butler MD, FACS Unavailable Unavailable Brennan Dobbins, Remberto Butler MD, FACS Unavailable Unavailable Brennan Dobbins, Remberto Butler MD, FACS Unavailable Unavailable Brennan Dobbins, Remberto Butler MD, FACS Unavailable Unavailable Brennan Dobbins, Remberto Butler MD, FACS Unavailable Unavailable Brennan Dobbins, Remberto Butler MD, FACS Unavailable Unavailable Brennan Dobbins, Remberto Butler MD, FACS Unavailable Unavailable Brennan Dobbins, Remberto Butler MD, FACS Unavailable Unavailable Brennan Dobbins, Remberto Butler MD, FACS Unavailable Unavailable Brennan Dobbins, Remberto Butler MD, FACS Unavailable Unavailable Brennan Dobbins, Remberto Butler MD, FACS Unavailable Unavailable Brennan Dobbins, Remberto Butler MD, FACS Unavailable Unavailable Brennan Dobbins, Remberto Butler MD, FACS Unavailable Unavailable Brennan Dobbins, Remberto Butler MD, FACS Unavailable Unavailable Brennan Dobbins, Remberto Butler MD, FACS Unavailable Unavailable Brennan Dobbins, Remberto Butler MD, FACS Unavailable Unavailable Brennan Dobbins, Remberto Butler MD, FACS Unavailable Unavailable Brennan Dobbins, Remberto Butler MD, FACS Unavailable Unavailable Brennan Dobbins, Remberto Butler MD, FACS Unavailable Unavailable Brennan Dobbins, Remberto Butler MD, FACS Unavailable Unavailable Brennan Dobbins, Remberto Butler MD, FACS Unavailable Unavailable Brennan Dobbins, Remberto Butler MD, FACS Unavailable Unavailable Brennan Dobbins, Remberto Butler MD, FACS Unavailable Unavailable Brennan Dobbins, Rebmerto Butler MD, FACS Unavailable Unavailable Brennan Dobbins, Remberto Butler MD, FACS Unavailable Unavailable Brennan Dobbins, Remberto Butler MD, FACS Unavailable Unavailable Brennan Dobbins, Remberto Butler MD, FACS Unavailable Unavailable Brennan Dobbins, Remberto Butler MD, FACS Unavailable Unavailable Brennan Dobbins, Remberto Butler MD, FACS Unavailable Unavailable Brennan Dobbins, Remberto Butler MD, FACS Unavailable Unavailable Anu Dobbins, Remberto Butler MD, FACS Unavailable Unavailable Anu Dobbins, Remberto Butler MD, FACS Unavailable Unavailable Anu Dobbins, Remberto Butler MD, FACS Unavailable Unavailable Remberto FRANK Unavailable Unavailable Re-disclosure Warning The records that you are about to access may contain information from federally-assisted alcohol or drug abuse programs. If such information is present, then the following federally mandated warning applies: This information has been disclosed to you from records protected by federal confidentiality rules (42 CFR part 2). The federal rules prohibit you from making any further disclosure of this information unless further disclosure is expressly permitted by the written consent of the person to whom it pertains or as otherwise permitted by 42 CFR part 2. A general authorization for the release of medical or other information is NOT sufficient for this purpose. The Federal rules restrict any use of the information to criminally investigate or prosecute any alcohol or drug abuse patient.The records that you are about to access may contain highly sensitive health information, the redisclosure of which is protected by Article 27-F of the [facility] Public Health law. If you continue you may have access to information: Regarding HIV / AIDS; Provided by facilities licensed or operated by the [facility] Office of Mental Health; or Provided by the [facility] Office for People With Developmental Disabilities. If such information is present, then the following [facility] mandated warning applies: This information has been disclosed to you from confidential records which are protected by state law. State law prohibits you from making any further disclosure of this information without the specific written consent of the person to whom it pertains, or as otherwise permitted by law. Any unauthorized further disclosure in violation of state law may result in a fine or long term sentence or both. A general authorization for the release of medical or other information is NOT sufficient authorization for further disc losure. Family History Family Member Name Family Member Gender Family Member Status Date o f Status Description Data Source(s) Unknown Male Problem MEDENT ([facility]) () Unknown Male Problem MEDENT ([facility]) Unknown Unknown Problem MEDENT ([facility] sister Encounters Encounter Providers Location Date Indications Data Source(s ) Outpatient Attender: Lucia MijaresAttender: LUCIA MIJARES 01/25/2021 12:00:00 AM EST [facility] Unknown [address] [facility] [address] 12/03/2020 12:00:00 AM EDT eCW1 (Critical access hospital) Outpatient Attender: Lucia MijaresAttender: LUCIA MIJARES 11/26/2020 12:00:00 AM [facility] Outpatient Attender: DAVIE Nathan nder: [phone] MEDENT_520Referrer: LUCIA MIJARES 11/25/2020 12:00:00 AM [facility] Outpatient Admitter: MARIO Boykiner: ENDER ALBRECHT DO 11/16/2020 12:00:00 AM EDT Malignant neoplasm of unspecified site o f right female breast [facility] Malignant neoplasm of unspecified site o f right female breast (BC PO) [facility] Post Op [address] [place] [address] 11/16/2020 12:00:00 AM EDT eCW1 ([facility]) [place] [address] [facility] [address] 11/11/2020 12:00:00 AM EDT eCW1 (Critical access hospital) Outpatient Attender: LUCIA MIJARESReferrer: LUCIA MIJARES 11/09/2020 12:00:00 AM EDT Mild cognitive impairment, so stated [facility] Mild cognitive impairment, so stated [place] [address] [facility] [facility] [address] 11/09/2020 12:00:00 AM EDT eCW1 (Critical access hospital) Outpatient Attender: DAVIE Nathan nder: [phone] MEDENT_520Referrer: LUCIA MIJARES 11/04/2020 12:00:00 AM [facility] Unknown [address] [facility] [facility] [address] 10/29/2020 12:00:00 AM EDT eCW1 (Critical access hospital) [place] [address] [facility] [facility] [address] 10/28/2020 12:00:00 AM EDT eCW1 (Critical access hospital) [place] [address] [facility] [address] 10/26/2020 12:00:00 AM EDT eCW1 (Critical access hospital) Outpatient Referrer: LUCIA MIJARES 10/23/2020 12:00:00 AM EDT Mild cognitive impairment, so stated [facility] Mild cognitive impairment, so stated Unknown [address] [facility] [facility] [address] 10/21/2020 12:00:00 AM EDT eCW1 (Critical access hospital) Outpatient [address] [facility] [facility] [address] 10/19/2020 12:00:00 AM EDT eCW1 (Critical access hospital) Outpatient Admitter: SHERWIN MCCALL MDReferrer: SHERWIN MCCALL MD 10/16/2020 12:00:00 AM EDT Malignant neoplasm of unspecified site of right female breast [facility] Malignant neoplasm of unspecified site o f right female breast Unknown [address] [facility] [address] 10/15/2020 12:00:00 AM EDT eCW1 (Critical access hospital) (BC Biopsy) Breast Center Biopsy [address] [place] [address] 10/14/2020 12:00:00 AM EDT eCW1 ([facility]) Outpatient [address] [facility] [facility] [address] 10/08/2020 12:00:00 AM EDT eCW1 (Critical access hospital) (WC GYNANN) [facility] Yearly [employer] Exam [address] [place] [address] 09/23/2020 12:00:00 AM EDT eCW1 (Critical access hospital) [place] [address] [facility] [address] 09/23/2020 12:00:00 AM EDT eCW1 (Critical access hospital) Outpatient Attender: Lucia CoxshvianandAttender: LUCIA ROBERTAMERICOBARBYSAIRA A-[id number] 08/11/2020 12:00:00 AM EDT - 08/11/2020 09:53:53 AM [facility] Outpatient Attender: LUCIA ROBERTAMERICOBARBYSAIRA 08/06/2020 12:00 :00 AM [facility] Outpatient Attender: LUCIA MIJARESReferrer: SHERWIN WANG MD [id number] 04/16/2020 12:00:00 AM [facility] Outpatient Attender: LUCIA MIJARESReferrer: SHERWIN WANG MD 11/26/2019 12:00:00 AM [facility] <td ID="encounterTypeDescriptionID0">1 Y ear Follow-Up</td><td>Luke Dobbins MD, FACS</td><td>Luke Dumont MD [facility]</td><td>11/06/2019</td><td>12:23PM</td><td>1:24PM</td><td><content ID="encounterDiagnosisID0-0">Conjunctivitis Chronic Allergic</content>, <content ID="encounterDiagnosisID0-1">Dry Eye Syndrome</content>, <content ID="encounterDiagnosisID0-2">Vitreous Disorders Degeneration</content></td>Outpatient Attender: Luke Dobbins MD, FACS Luke Dumont MD [facility] 11/06/2019 12:23:00 PM EDT - 11/06/2019 01:24:00 PM ED T Dry Eye SyndromeVitreous Disorders DegenerationConjunctivitis Chronic Allergic SHANIA (Luke Dobbins MD [facility]) Dry Eye Syndrome Vitreous Disorders Degeneration Conjunctivitis Chronic Allergic Immunizations Vaccine Date Status Description Data Source(s) COVID-19 VACCINE Moderna 05/06/2020 12:00:00 AM EST completed [facility] Vaccine Series Complete: YESThis Data wa s Submitted to [facility] Via [employer]. COVID-19 VACCINE Moderna 04/03/2020 12:00:00 AM EST completed [facility] Vaccine Series Complete: NOThis Data was Submitted to [facility] Via [employer]. INFLUENZA VACCINE QUADRIVALENT (65 YR UP)/MF59 C.1/PF 11/20/2019 12:00:00 AM EDT completed [facility] Medications Medication Brand Name Start Date Product Form Dose Route Admi nistrative Instructions Pharmacy Instructions Status Indications Reaction Description Data Source(s) 5 mg 11/10/2020 12:00:00 AM EDT tablet 10 TAKE ONE TABLET BY MOUTH EVERY 6 HOURS NEEDED FOR PAIN MAXIMUM DAILY DOSE = 4 TAKE ONE TABLET BY MOUTH EVERY 6 HOURS NEEDED FOR PAIN MAXIMUM DAILY DOSE = 4 SOLD: 11/10/2020 [facility] gadobutrol (GADAVIST) contrast injection 6.5 mL [id number] 11/09/2020 10:00:00 AM EDT 0.1 mL/kg Intravenous completed 6.5 mL (rounded from 6.53 mL = 0.1 mL/kg 65.3 kg), Intravenous, 1 TIME IMAGING, On Mon11/09/20 at 1000, For 1 dose, Imaging Protocol
Do not mix or administer in the same IV line with other or dications.
[facility] Medication administered onsite 2.5-2.5 % 10/29/2020 12:00:00 AM EDT cream 30 APPLY ENTIRE TUBE TO RIGHT NIPPLE AND SURROUNDING TISSUE 2 HOURS BEFORE COMING TO HOSPITAL FOR SURGERY. COVER WITH PLASTIC APPLY ENTIRE TUBE TO RIGHT NIPPLE AND SCOTT RROUNDING TISSUE 2 HOURS BEFORE COMING TO HOSPITAL FOR SURGERY. COVER WITH PLASTIC SOLD: 11/04/2020 [facility] Lidocaine 25 MG/ML / Prilocaine 25 MG/ML Topical Cream Lidocaine-Prilocaine 2.5- 2.5 % Lidocaine-Prilocaine 2.5-2.5 % 10/26/2020 12:00:00 AM EDT active Lidocaine-Prilocaine 2.5-2.5 % e CW1 ([facility]) doxycycline hyclate 100 MG Oral Capsule DOXYCYCLINE HYCLATE 09/08/2020 12:00:00 AM EDT capsule 14 TAKE ONE CAPSULE BY MOUTH TW ICE A DAY FOR 7 DAYS TAKE ONE CAPSULE BY MOUTH TWICE A DAY FOR 7 DAYS SOLD: 09/08/2020 [facility] 500 mg 08/04/2020 12:00:00 AM EDT tablet 7 TAKE ONE TABLET BY MOUTH EVERY DAY TAKE ONE TABLET BY MOUTH EVERY DAY SOLD: 08/06/2020 [facility] 10 mg 06/12/2020 12:00:00 AM EDT tablet 30 TAKE ONE TABLET BY MOUTH EVERY DAY TAKE ONE TABLET BY MOUTH EVERY DAY SOLD: 08/14/2020 [facility] 10 mg 06/12/2020 12:00:00 AM EDT tablet 30 TAKE ONE TABLET BY MOUTH EVERY DAY TAKE ONE TABLET BY MOUTH EVERY DAY SOLD: 11/18/2020 [facility] 10 mg 06/12/2020 12:00:00 AM EDT tablet 30 TAKE ONE TABLET BY MOUTH EVERY DAY TAKE ONE TABLET BY MOUTH EVERY DAY SOLD: 06/12/2020 [facility] 10 mg 06/12/2020 12:00:00 AM EDT tablet 30 TAKE ONE TABLET BY MOUTH EVERY DAY TAKE ONE TABLET BY MOUTH EVERY DAY SOLD: 09/21/2020 [facility] 250 mg 03/09/2020 12:00:00 AM EST tablet 6 TAKE TWO TABLETS BY MOUTH AT ONCE ON THE FIRST DAY THEN TAKE ONE DAILY THEREAFTER TAKE TWO TABLETS BY MOUTH AT ONCE ON THE FIRST DAY THEN TAKE ONE DAILY THEREAFTER SOLD: 03/10/2020 [facility] 500 mg 03/03/2020 12:00:00 AM EST tablet 2 TAKE 2 TABLETS BY MOUTH ONE TIME TAKE 2 TABLETS BY MOUTH ONE TIME SOLD: 03/03/2020 [facility] 250 mg 01/27/2020 12:00:00 AM EST tablet 6 TAKE TWO TABLETS BY MOUTH AT ONCE ON THE FIRST DAY THEN TAKE ONE DAILY THEREAFTER TAKE TWO TABLETS BY MOUTH AT ONCE ON THE FIRST DAY THEN TAKE ONE DAILY THEREAFTER SOLD: 01/27/2020 [facility] Estradiol 1 MG Oral Tablet Estradiol 1 MG Oral Tablet (ESTRACE) Estradiol 1 MG Oral Tablet (ESTRACE) 12/19/2019 12:00:00 AM EDT 1 mg Oral active Take 1 mg by mouth daily [facility] 500 mg 10/17/2019 12:00:00 AM EDT tablet 7 TAKE ONE TABLET BY MOUTH EVERY DAY FOR 7 DAYS TAKE ONE TABLET BY MOUTH EVERY DAY FOR 7 DAYS SOLD: 10/17/2019 [facility] Cyclosporine 0.5 MG/ML Ophthalmic Suspen neymar [Restasis] Restasis 0.05% Ophthalmic Emulsion Restasis 0.05% Ophthalmic Emulsion 11/05/2018 12:00:00 AM EDT aborted cyclospo rine 0.5 MG/ML Ophthalmic Suspension [Restasis] SHANIA (Luke Dobbins MD [facility]) Insurance Providers Payer name Policy type / Coverage type Policy ID Covered alliance party ID Covered alliance party's relationship to mae [employer] Plan Information Ghi/Emblem HLTH (pr) Medigap Part B [id number] Self 0 [id number] Ghi/Emblem HLTH (pr) Medigap Part B [id number] Self 0 [id number] Ghi/Emblem HLTH (pr) Medigap Part B [id number] Self 0 [id number] Ghi/Emblem HLTH (pr) Medigap Part B [id number] Self 0 [id number] Ghi/Emblem HLTH (pr) Medigap Part B [id number] Family Dependent 9 [id number] Ghi/Emblem HLTH (pr) Medigap Part B [id number] Family Dependent 9 [id number] Ghi/Emblem HLTH (pr) Medigap Part B [id number] Family Dependent 9 [id number] Ghi/Emblem HLTH (pr) Medigap Part B [id number] Family Dependent 9 [id number] POMCO [id number] HU2 [id number] POMCO [id number] Spo [id number] POMCO U [id number] Self [id number] POMCO U [id number] Spouse [id number] [place] Primary [id number] Self [id number] MEDICARE A [id number] Self [id number] Medicare Part B [facility] Other 0 [id number] Self 0 MEDICARE [id number] Jeannine [id number] [id number] Medicare Part B [facility] [id number] 0 [id number] MEDICARE [id number] Jeannine [id number] T [place] Primary [id number] Self [id number] MEDICARE [id number] SP [id number] [id number] MEDICARE [id number] SP [id number] T UMR U [id number] Spouse [id number] [place] F [id number] SPOUSE [id number] Medicare C [id number] SELF [id number] T UMR [id number] Spo [id number] [place] F [id number] SPOUSE [id number] Umr Commercial [id number] Family Dependent [id number] Medicare [place] Medicare Primary [id number] Self 0 [id number] [place] (pr) Medigap Part B [id number] .[id number] .[id number] Family Dependent [id number] Medicare [place] Medicare Primary [id number] Self 0 [id number] [place] (pr) Medigap Part B [id number] .[id number] .[id number] Family Dependent [id number] [place] (pr) Medigap Part B [id number] [id number] .[id number] Family Dependent [id number] Medicare [place] Medicare Primary [id number] [id number] Self 3 [id number] Medicare [place] Medicare Primary [id number] [id number] Self 3 [id number] [place] (pr) Medigap Part B [id number] 2.16840.1.371008.3.227.99 .991.13925.0 Family Dependent [id number] Medicare [place] Medicare Primary [id number] [id number] Self 3 [id number] [place] (pr) Medigap Part B [id number] 2.840.1.215838.3.227.99 .991.47358.0 Family Dependent [id number] [place] (pr) Medigap Part B [id number] 2.840.1.235807.3.227.99 .991.75886.0 Family Dependent [id number] Medicare [place] Medicare Primary [id number] [id number]2.0 Self 3 [id number] [place] (pr) Medigap Part B [id number] 2.16840.1.383216.3.227.99 .991.00628.0 Family Dependent [id number] [place] (pr) Medigap Part B [id number] 2.16840.1.254086.3.227.99 .991.69776.0 Family Dependent [id number] Medicare [place] Medicare Primary [id number] 2.16840.1.283752.3.227.99.991.05296.0 Self 0 [id number] Medicare [place] Medicare Primary [id number] 2.16.840.1.767198.3.227.99.991.78488.0 Self 3 [id number] [place] (pr) Medigap Part B [id number] 2.16.840.1.687856.3.227.99 .991.29280.0 Family Dependent [id number] [place] (pr) Medigap Part B [id number] 2.16840.1.628589.3.227.99 .991.57696.0 Family Dependent [id number] Medicare [place] Medicare Primary [id number] 2.16.840.1.002843.3.227.99.991.93375.0 Self 0 [id number] Medicare [place] Medicare Primary [id number].991.72124.0 Self 0 [id number] Umr (pr) Medigap Part B [id number] 2.840.1.898460.3.227.99 .991.26309.0 Family Dependent [id number] Umr (pr) Medigap Part B [id number] 2.840.1.607922.3.227.99 .991.37483.0 Family Dependent [id number] Umr (pr) Medigap Part B [id number] 2.840.1.730518.3.227.99 .991.30309.0 Family Dependent [id number] Umr (pr) Medigap Part B [id number] 2.840.1.877532.3.227.99 .991.96986.0 Family Dependent [id number] Umr (pr) Medigap Part B [id number] 2.840.1.338969.3.227.99 .991.65683.0 Family Dependent [id number] Umr (pr) Medigap Part B [id number] 2.840.1.975494.3.227.99 .991.50980.0 Family Dependent [id number] UMR [facility] [id number] 2 [id number] Medicare Dme Supplies Medigap Part B [id number] Self 0 [id number] MEDICARE [id number] SP [id number] G49 SELF PAY ONLY [id number] SP [id number] [employer] Other 0 [id number] Self 0 UMR O [id number] S [id number] MEDICARE C [id number] S [id number] G49 UMR [facility] [id number] CA2 [id number] ANSI-Commercial [id number] ANSI-Medicare Part B [id number] ANSI-Commercial [id number] ANSI-Medicare Part B [id number] ANSI-Commercial [id number] ANSI-Commercial [id number] ANSI-Commercial [id number] ANSI-Medicare Part B [id number] Medicare Dme Supplies Medigap Part B [id number] Self 0 [id number] Medicare Dme Supplies Medigap Part B [id number] Self 0 [id number] Medicare Dme Supplies Medigap Part B [id number] Self 0 [id number] Medicare Dme Supplies Medigap Part B [id number] Self [id number] Medicare Dme Supplies Medigap Part B [id number] Self 0 [id number] Medicare Dme Supplies Medigap Part B [id number] Self 0 [id number] [facility] [id number] 2 [id number] MEDICARE [id number] SP [id number] T [employer] [id number] 2 [id number] [facility] [id number] Family Dependent [id number] Medicare Upstate/NGS Medicare Primary [id number] Self [id number] COMMERCIAL HEA [id number] SP [id number] UNAVAILABLE UNAVAILA BLE MEDICARE MCA [id number] S [id number] MEDICARE MCA [id number] S [id number] 7T [employer] PPO O [id number] S [id number] MEDICARE C [id number] S [id number] T [place] MEDICARE PART B C [id number] S [id number] [facility] C [id number] S [id number] [facility] [id number] HU2 [id number] [place] Medigap Part B [id number] Family Dependent [id number] Medicare Upstate/[facility] Medicare Primary [id number] Self [id number] Medicare Dme Supplies Medigap Part B [id number] Self 0 [id number] MEDICARE C [id number] S [id number] A MEDICARE [id number] SP [id number] A [employer] Medigap Part B [id number] Family Dependent [id number] Medicare Natl Gov't Servi Medicare Primary [id number] Self [id number] [place] [id number] 1 [id number] [employer] PI PI MEDICARE PI PI Medicare Part B [facility] [id number] 0 [id number] [employer] [id number] HU2 [id number] [employer] PPO O [id number] P [id number] [employer] Commercial [id number] Family Dependent [employer]OM[employer] O [id number] S [id number] UNAVAILABLE UNAVAILA BLE Problems, Conditions, and Diagnoses Code Display Name Description Problem Type Effective Dates Data Source(s) C50.911 Malignant neoplasm of unspecified site o f right female breast Malignant neoplasm of unspecified site of right female breast Diagnosis 02:48:00 PM EDT [facility] G31.84 Mild cognitive impairment, so stated Mil d cognitive impairment, so stated Diagnosis 11/09/2020 08:10:06 AM EDT [facility] C50.911 [id number] Malignant neoplasm of unspecifie d site of right female breast Problem 12/03/2020 12:00:00 AM EDT eCW1 ([facility]) C50.911 [id number] Invasive ductal carcinoma of right breast Problem 10/19/2020 12:00:00 AM EDT eCW1 ([facility]) R92.8 [id number] Abnormal mammogram of right breast Proble m 10/08/2020 12:00:00 AM EDT eCW1 ([facility]) Z90.710 [id number] Hx of hysterectomy Problem 09/23/2020 12:00: 00 AM EDT [facility] ([facility]) [id number] Dermatochalasis Both Eyes Dermatochalasis Both Eyes Fi nding 11/06/2019 01:22:00 PM EDT SHANIA (Luke Dobbins MD [facility]) 173.11 Eyelid Basal Cell Carcinoma Eyelid Basal Cell Carcinom a Problem 10/30/2015 12:00:00 AM EDT - 11/06/2019 12:00:00 AM EDT SHANIA (Luke Dbobins MD [facility]) Surgeries/Procedures Procedure Description Date Indications Data Source(s) MRI BRAIN BRAIN STEM W/O &W/CONTRAST MATERIAL <td>MR B RAIN WITH AND WITHOUT CONTRAST [id number]</td><td>Routine</td><td>11/09/2020 10:18 AM EDT</td><td> Mild cognitive impairment with memory loss</td><td> </td> 11/09/2020 10:18:00 AM EDT Mild cognitive impairment with memory loss [facility] Mild cognitive impairment with memory lo ss CREATININE BLOOD <td>POCT ISTAT CREATININE</t d><td>Routine</td><td>11/09/2020 9:22 AM EDT</td><td></td><td> </td> 11/09/2020 09:22:00 AM EDT [facility] Surgical / procedural history Tonsillec august 1958, Hysterectomy 1987, L Hand Thumb Joint Replacement 2013, AP repair and bladder lift. 06/2017 Removal of ovaries/ tubes and ovarian tumor, BCC removal by FEB 0612/2015 Surgical / procedural history Tonsillectomy 1959, Hysterectomy 1988, L Hand Thumb Joint Replacement 2013, AP repair and bladder lift. 06/2017 Removal of ovaries/ tubes and ovarian tumor, BCC removal by FEB 0612/2015 11/06/2019 12:00:00 AM EDT SHANIA (Luke Dobbins MD [facility]) Laser assisted in situ keratomileusis (procedure) Hist ory of LASIK surgery 02/2017 OU 11/06/2019 12:00:00 AM EDT SHANIA (Marvin Dobbins MD [facility]) Intermediate Eye Exam Established Patient Intermediate Eye Exam Established Patient 11/06/2019 12:00:00 AM EDT OOLITIC (Marvin Dobbins MD [facility]) Results ID Date Data Source [id number] 11/18/2020 04:29:00 PM EDT [facility] Surgical Pathology ReportName: MUMTAZ ULTZMRN: [id number] Number: [id number] Date: 11/16/2020 00:00Received Date: 11/16/2020 14:51Physician(s): MARIO ALBRECHT DO Haghir, Shahandeh MDSpecimen(s) ReceivedA: Material received for consultation, [facility], [facility],[id number] HistoryA-Right breast lumpectomy. B-Right breast dense tissue posterior margin. C-Right breast posterior/inferior dense tissue. Breast cancer, originalbx reviewed at [facility]. Well differentiated carcinoma with features oftubular carcinoma. On excision has IGNACIA/LCIS as well as invasive lobu lar,away from bx site. Consultation for question 1) Is it a tubularcarcinoma or mixed tubular and lobular. 2) How would you report size, ascarcinoma is in 3 separate specimens. (Limited consultation) for pTstaging and type of carcinoma.DiagnosisRIGHT BREAST, LUMPECTOMY ([id number], SLIDES A3, A4; 11/10/20): TUBULARCARCINOMA, 10 x 9 MM (pT1C). MINUTE FOCUS OF INVASIVE LOBULAR CARCINOMA(0.3 MM). LOBULAR CARCINOMA IN-SITU. BIOPSY SITE CHANGES. (SeeMicroscopic Description).RIGHT BREAST, POSTERIOR MARGIN, EXCISION ([id number], SLIDE B1; 11/10/20):INVASIVE LOBULAR CARCINOMA, 12 x 6 MM (pT1C).BIOMARKERS I HC:ER: Positive (strong to moderate, 90%).KS: Positive (moderate to weak, 30%).HER2: Negative (0).RIGHT BREAST, POSTERIOR/INFERIOR MARGIN, EXCISION ([id number], SLIDE C1;11/10/20): MINUTE FOCUS OF INVASIVE LOBULAR CARCINOMA (1.8 MM).Electronically Signed By Stevie Jones M.D., Attending Pathologist11/18/2020 16:29:24 [address] [address] [facility] [place], [place], are 4 H and Estained slides and 8 specially stained slides, 4 paraffin blocks, [id number], with the corresponding pathology report. Microscopic DescriptionI have reviewed slides A1 and A3 from a right br east lumpectomy andslides B1 and C1 from two separately submitted margins from the abovecaptioned patient. I would report these are as 2 separate foci of invasive carcinoma: Onefocus of tubular carcinoma, which correspond to the prior needle biopsyreviewed in consultation [facility] (part A) and a separate focus of invasivelobular carcinoma, identified in the separately submitted margin (part B). I would interpret them as minute foci of invasive lobular carcinomapresent in the main resection specimen (part A) and the posterior/inferiormargin specimen (part C) as part or satellites of the main lobularcarcinoma focus in part B. Both main foci of invasive carcinoma should bestaged as 2 different pT1c tumors. While the tubular carcinoma is presentat 8 mm from the inked margin, two of the foci of invasive lobularcarcinoma are very close to the inked margins (0.7 mm from the main focusand 1.8 mm from posterior/inferior margins). Biomarkers were performed inthe new focus of invasive lobular carcinoma (part B), which were alreadyperformed on the tubular carcinoma (part A) and the results are reportedabove (ER+, KS+, HER2-). Thank you for letting me see this case in consultation.This report may include one or more immunohistochemical stain results thatuse analyte specific reagents. All positive and negative controls havebeen reviewed by the attending pathologist and are satisfactory. The testswere developed and their performance characteristics determined by [facility] Pathology department. They have not been cleared or approved by the USFood and Drug Administration. The FDA has determined that such clearanceor approval is not necessary. Name Value Range Interpretation Code Description Data Angela rce(s) Supporting Document(s) ID Date Data Source [id number] 11/09/2020 11:51:46 AM T [facility] MR BRAIN WITH AND WITHOUT CONTRAST [id number] FINAL RESULTInterpreted by:Heriberto Chiang MDEXAMINATION: MR BRAIN WITH AND WITHOUT CONTRAST [id number] INDICATION: Abnormal MRI. Per the electronic medical record, patient has history of progressive cognitive decline.TECHNIQUE: Multiplanar and multisequence MR images of the brain were obtained on our Shalini Ingenia 3.0 Amarilys MRI scanner.IV CONTRAST: Yes.COMPARISON: MRI of the brain without contrast dated 10/23/2020 and MRI of the brain performed at [facility] on 10/09/2018. FINDINGS: Previously reported symmetric gyriform restricted diffusio n and mild increased T2 and FLAIR signal in the left and right anterior frontal lobes and in the cortex of the left and right insula was also present on the MRI of the brain performed at [facility] on 10/09/2018. Generalized cerebral volume loss with commensurate enlargement of the ventricles is unchanged. The basal cisterns are patent. There is no acute intracranial hemorrhage or evidence of acute infarction. Neither space-occupying mass, shift of the midline structures, nor abnormal extra-axial fluid collections are present. Normal flow voids of the major intracranial arterial vessels are identified. There is no abnormal enhancement following contrast administration.Imaged portions of the paranasal sinuses and mastoid air cells are clear. IMPRESSION:1. Increased signal on the diffusion weighted images in the paramedian cortex of the [...] regions or any other portion of the brain.2. No acute intracranial hemorrhage, evidence of acute infarction, or other acute intracranial disease process. This document has been electronically signed by Heriberto Chiang MD on 11/09/2020 11:49 AM Name Value Range Interpretation Code Description Data Angela rce(s) Supporting Document(s) ID Date Data Source [id number] 11/09/2020 09:32:42 AM [facility] Name Value Range Interpretation Code Description Data Angela rce(s) Supporting Document(s) Creatinine [Mass/volume] in Blood 0.7 mg/dL 0.50-0.90 [facility] ID Date Data Source [id number] 10/26/2020 09:04:44 AM [facility] MR BRAIN WITHOUT CONTRAST [id number] RES ULTInterpreted by:IGLESIA Sánchez HEAD WITHOUT IV CONTRASTClinical indication: MCI.Comparison: October 09, 2018.TECHNIQUE;The brain was imaged in sagittal and axial plane with multiple sequences without administration of IV contrast.FINDINGS;Symmetric gyriform restricted diffusion is seen in the bilateral anterior frontal and insular cortices. Corresponding axial T2-weighted and FLAIR images demonstrate mild T2 and FLAIR hyperintensity in these regions. The ventricular system is age appropriate in size, shape and configuration. The ventricles are midline.The cortical sulci is age appropriate in size, shape, and configuration. The basal cisterns are patent.There is no midline shift or mass effect. Normal flow-voids are seen bilaterally.The mesial temporal lobe is grossly unremarkable bilaterally in signal intensity and in configuration. Normal miles and white matter differentiation is preserved with normal myelination. No significant congenital anomaly. No abnormal hemosiderin deposition.The visualized brain stem is unremarkable. The posterior fossa structures are unremarkable.The corpus callosum is unremarkable. The pituitary gland is unremarkable with normal posterior T1 bright spot. No evidence of Chiari I malformation.The internal auditory canals are symmetric and unremarkable.The cerebellopontine angle is unremarkable bilaterally.The visualized paranasal sinuses including mastoid air cells are all clear.IMPRESSION:Symmetric gyriform restricted diffusion in the bilateral anterior frontal and insular cortices with corresponding T2 and FLAIR high signal intensity. These findings are nonspecific but may represent early hypoxic ischemic encephalopathy versus hypoglycemia versus postictal changes versus herpes encephalitis versus nonspecific cerebritis versus Creutzfeldt- Carlitos disease.This document has been electronically signed by Cordell Franco MD on 10/26/2020 9:02 AM Name Value Range Interpretation Code Description Data Angela rce(s) Supporting Document(s) ID Date Data Source [id number] 10/20/2020 10:05:00 AM [facility] Surgical Pathology ReportName: MUMTAZ LUTZMRN: [id number] Number: [id number] Date: 10/16/2020 00:00Received Date: 10/16/2020 14:01Physician(s): SHERWIN MCCALL MD Haghir, Shahandeh MDSpecimen(s) ReceivedA: Material received for consultation, [facility]ON[facility], [facility],[id number] HistoryRight breast biopsy at 12 o'clock. Right breast suspicious finding ondiagnostic mammo. Favor well diff invasion ductal carcinoma (grade I). For consultation/2nd opinion. Please do ER, KS, HER2 if you agree withpresence of carcinoma. DiagnosisBREAST, RIGHT, 12 O'CLOCK, NEEDLE BIOPSY: INVASIVE DUCTAL CARCINOMA WITHTUBULAR FEATURES. (SEE NOTE)GRADE: 1 VASCULAR INVASION: Not identified.DCIS: Not identified.ESTROGEN RECEPTORS: Positive (moderate to weak, 80%).PROGESTERONE RECEPTORS: Positive (strong to moderate, 90%)HER2: Negative (1+).NoteI completely agree with your diagnosis of grade 1 invasive ductalcarcinoma. The tumor has features of tubular carcinoma, but the finalclassification should be based on a resection specimen.Electronically Signed By Stevie Jones M.D., Attending Pathologist10/20/2020 10:05:33 Unless 'gross-only' is specified, the final diagnosis is based on amicroscopic examination of printing supplies sales representative sections of tissue.Gross DescriptionReceived from [facility] in [place], [place], are 2 H and Estained slides and 1 paraffin block, [id number], with the corresponding pathology report. This report may include one or more immunohistochemical stain results thatuse analyte specific reagents. All positive and negative controls havebeen reviewed by the attending pathologist and are satisfactory. The testswere developed and their performance characteristics determined by [facility] Pathology department. They have not been cleared or approved by the USFood and Drug Administration. The FDA has determined that such clearanceor approval is not necessary. Name Value Range Interpretation Code Description Data Angela rce(s) Supporting Document(s) ID Date Data Source [facility] DIGITAL / MARIO BILATERAL MAMMO SCREENING (Ultraso und if indicated) 09/23/2020 12:00:00 AM EDT eCW1 ([facility]) Name Value Range Interpretation Code Description Data Angela rce(s) Supporting Document(s) [facility] DIGITAL / MARIO BILAT ERAL MAMMO SCREENING (Ultrasound if indicated) eCW1 ([facility]) ID Date Data Source [id number] 08/24/2020 06:59:41 PM EDT [facility] Name Value Range Interpretation Code Description Data Angela rce(s) Supporting Document(s) Progress Note [facility] [id number] lbm [file] ID Date Data Source [id number] 08/15/2020 10:05:32 PM EDT [facility] Value Range Interpretation Code Description Data Angela rce(s) Supporting Document(s) Thiamine [Moles/volume] in Blood 140.0 nmol/L 66.5-200.0 [facility] (NOTE)This test was developed and its pe rformance characteristicsdetermined by [facility]. It has not been cleared or approvedby the Food and Drug Administration.Performed At: [address] [id number] Sanjai MD Ph:[phone] ID Date Data Source [id number] [facility] Interpretation Code Description Data Angela rce(s) Supporting Document(s) Cobalamin (Vitamin B12) [Mass/volume] in Serum or Plasma 2 11-946 H [facility] ID Date Data Source [id number] 08/11/2020 02:19:45 PM EDT [facility] Value Range Interpretation Code Description Data Angela rce(s) Supporting Document(s) Thyrotropin [Units/volume] in Serum or Plasma 3.170 u[IU]/mL 0.270-4. 200 [facility] ID Date Data Source [id number] 04/23/2020 06:12:[address] [facility] Name Value Range Interpretation Code Description Data Angela rce(s) Supporting Document(s) Progress Note [facility] [id number] lbm [file] [id number]== ID Date Data Source [id number] 03/15/2020 12:00:00 AM EST [facility] Name Value Range Interpretation Code Description Data Angela rce(s) Supporting Document(s) SARS-CoV-2 (COVID-19) RNA [Presence] in Respiratory specimen by EYAL with probe detection Not Detected [facility] This lab was ordered by [facility] and reported by [employer] ID Date Data Source [facility] Mario Screening Bilateral (Ultrasound if Indicated ) (3D Mammo) 12/09/2019 04:45:48 AM EDT eCW1 ([facility]) Name Value Range Interpretation Code Description Data Angeal rce(s) Supporting Document(s) [facility] Mario Screening Bilat eral (Ultrasound if Indicated) (3D Mammo) eCW1 ([facility]) Procedure Social History Code Duration Value Status Description Data Source(s ) Smoking 11/16/2020 12:00:00 AM EDT Never Smoker completed Never S moker eCW1 ([facility]) Smoking 11/16/2020 12:00:00 AM EDT Never Smoker completed Never S moker eCW1 ([facility]) Alcohol intake 11/09/2020 12:00:00 AM EDT Ex-drinker (finding) comp leted Ex- drinker (finding) [facility] Tobacco use and exposure 11/09/2020 12:00:00 AM EDT Never used co mpleted Never used [facility] Smoking 11/09/2020 12:00:00 AM EDT Never smoker completed Never s [facility] Smoking 10/19/2020 12:00:00 AM EDT Never Smoker completed Never S moker eCW1 ([facility]) Smoking 10/19/2020 12:00:00 AM EDT Never Smoker completed Never S moker eCW1 ([facility]) Smoking 10/19/2020 12:00:00 AM EDT Never Smoker completed Never S moker eCW1 ([facility]) Smoking 10/19/2020 12:00:00 AM EDT Never Smoker completed Never S moker eCW1 ([facility]) Smoking 10/19/2020 12:00:00 AM EDT Never Smoker completed Never S moker eCW1 ([facility]) Smoking 10/19/2020 12:00:00 AM EDT Never Smoker completed Never S moker eCW1 ([facility]) Smoking 10/19/2020 12:00:00 AM EDT Never Smoker completed Never S moker eCW1 ([facility]) Smoking 10/08/2020 12:00:00 AM EDT Never Smoker completed Never S moker eCW1 ([facility]) Smoking 10/08/2020 12:00:00 AM EDT Never Smoker completed Never S moker eCW1 ([facility]) Smoking 10/08/2020 12:00:00 AM EDT Never Smoker completed Never S moker eCW1 ([facility]) Smoking 09/23/2020 12:00:00 AM EDT Never Smoker completed Never S moker eCW1 ([facility]) Smoking 09/23/2020 12:00:00 AM EDT Never Smoker completed Never S moker eCW1 ([facility]) Alcohol intake 08/11/2020 12:00:00 AM EDT Ex-drinker (finding) comp leted Ex- drinker (finding) [facility] Smoking 11/06/2019 01:25:27 PM EDT Never smoked tobacco (findi ng) completed Never smoked tobacco (finding) SHANIA (Luke Dobbins MD [facility]) Vital Signs ID Date Data Source UNK Name Value Range Interpretation Code Description Data Source(s) Body weight 141 [lb_av] 141 [lb_av] eCW1 ([facility]) Body weight 63.96 kg 63.96 kg [facility] Body height 62 [in_i] 62 [in_i] eCW1 [facility] Body mass index (BMI) [Ratio] 25.79 kg/m2 25.79 kg/m2 W1 ([facility]) Heart rate 72 /min 72 /min eCW1 ([facility]) Respiratory rate 18 /min 18 /min eCW1 ([facility]) Body temperature 97.8 [degF] 97.8 [degF] eCW1 ( [facility]) Systolic blood pressure 130 mm[Hg] 130 mm[Hg] e CW1 ([facility]) Diastolic blood pressure 82 mm[Hg] 82 mm[Hg] eCW1 ([facility]) Body weight 143 [lb_av] 143 [lb_av] eCW1 ([facility]) Body weight 64.86 kg 64.86 kg eCW1 [facility] Body height 62 [in_i] 62 [in_i] eCW1 [facility] Body mass index (BMI) [Ratio] 26.15 kg/m2 26.15 kg/m2 eCW1 ([facility]) Heart rate 70 /min 70 /min eCW1 ([facility]) Respiratory rate 18 /min 18 /min eCW1 ([facility]) Body temperature 98 [degF] 98 [degF] eCW1 ([facility]) Systolic blood pressure 130 mm[Hg] 130 mm[Hg] e CW1 ([facility]) Diastolic blood pressure 82 mm[Hg] 82 mm[Hg] eCW1 ([facility]) Body weight 143 [lb_av] 143 [lb_av] eCW1 ([facility]) Respiratory rate 18 /min 18 /min eCW1 ([facility]) Body temperature 97.7 [degF] 97.7 [degF] eCW1 ( [facility]) Systolic blood pressure 138 mm[Hg] 138 mm[Hg] e CW1 ([facility]) Diastolic blood pressure 80 mm[Hg] 80 mm[Hg] eCW1 ([facility]) Body weight 64.86 kg 64.86 kg eCW1 ([facility] Body height 62 [in_i] 62 [in_i] eCW1 [facility] Body mass index (BMI) [Ratio] 26.15 kg/m2 26.15 kg/m2 eCW1 ([facility]) Heart rate 74 /min 74 /min eCW1 ([facility]) Body weight 143 [lb_av] 143 [lb_av] eCW1 ([facility]) Body height 62 [in_i] 62 [in_i] eCW1 [facility] Body mass index (BMI) [Ratio] 26.15 kg/m2 26.15 kg/m2 eCW1 ([facility]) Systolic blood pressure 112 mm[Hg] 112 mm[Hg] e CW1 ([facility]) Diastolic blood pressure 68 mm[Hg] 68 mm[Hg] eCW1 ([facility]) Patient Treatment Plan of Care Planned Activity Planned Date Details Description Data Source (s) Lidocaine 25 MG/ML / Prilocaine 25 MG/ML Topical Cream 10/26/2020 12:00:00 AM EDT eCW1 ([facility]) Estradiol 1 MG Oral Tablet 12/19/2019 12:00:00 AM [facility] Cyclosporine 0.5 MG/ML Ophthalmic Suspension [Restasis ] 11/05/2018 12:00:00 AM EDT SHANIA (Luke Dobbins MD [facility])
--- OUTSIDE RECORDS SUMMARY | 2020-12-15 06:11 | CCD ---
Author Author [facility] Organization [facility] Address Unknown Phone Unavailable Care Team Providers Care Med Spa Manager Name Role Phone Jinny Esquivel Unavailable PROBLEMS Type Condition ICD9-CM Code [id number] Code Onset Dates Condition S tatus W/U Status Risk SNOMED Code Notes Problem Osteopenia, unspecified location M85.80 Active confirmed 521828667 Problem Vaginal wall prolapse N81.10 Active confirmed 864071450 Problem Menopausal disorder N95.9 Active confirmed 495090518 Problem Acquired absence of both cervix and uterus Z90.710 Active confirmed 864671158 Problem Midline cystocele N81.11 Active confirmed 42 9443980 Problem Hx of hysterectomy Z90.710 Active confirmed 262090891 Problem Rectocele N81.6 Active confirmed 790351613 Problem CRP elevated R79.82 Active confirmed 6081073 91700311 Problem Dry eye H04.129 Active confirmed 919922243 Problem Primary osteoarthritis involving multiple joints M 15.0 Active confirmed 038077257 ALLERGIES Allergen (clinical drug ingredient) Drug/Non Drug Allergy do cumented on EMR Reaction Allergy Type Onset Date Status meperidine Demerol(NDC Code:[address]-06) Nausea/Vomiting Drug Aller gy Active Penicillin (For Allergies Use Only) Hives Drug Allerg y Active patch glue (medical patches) Rash Non Drug Allergy Active juniper dow (gin) Anaphylaxis/ rash Non Drug Allergy Active meloxicam Meloxicam(NDC Code:[address]-28) patient is unsure Drug A llergy Active erythromycin Erythromycin(NDC Code:[address]-05) difficulty swallowing Drug Allergy Active ENCOUNTERS from 1950 to 2020-09-24 Encounter Location Date Provider Diagnosis [facility] [address] [facility] [phone] [place] [address] Aug, Jinny Esquivel IMMUNIZATIONS No Information SOCIAL HISTORY Tobacco Use: Social History Observation Description Date Details (start date - stop date) Never Smoker Sex Assigned At : Social History Observation Description Sex Assigned At Unknown Education: Question Answer Notes Level of Education: College bachelors Language: Question Answer Notes Languages spoken: Mohawk Church: Question Answer Notes Church No hinduism beliefs that would impact health care. Alcohol Screening: Question Answer Notes Did you have a drink containing alcohol in the past year? Ye s Points 1 Interpretation Negative How often did you have six or more drinks on one occas ion in the past year? Never (0 points) How many drinks did you have on a typica l day when you were drinking in the past year? 1 or 2 (0 points) How often did you have a drink containing alcohol in t he past year? Monthly or less (1 point) BMI Care Goal Follow-Up Question Answer Notes Above Normal BMI Follow-Up Giving encouragement to exercise Tobacco Use: Question Answer Notes Are you a: never smoker never smoker REASON FOR REFERRAL No Information VITAL SIGNS No information MEDICATIONS Medication SIG (Take, Route, Frequency, Duration) Notes Start Da te End Date Status Prevagen 10 MG as directed Orally No t-Taking amLODIPine Besylate 2.5 MG 1 tablet Orally Once a day Active Folic Acid 1 MG 1 tablet Orally Once a day for 30 day(s) Active Antivert 1 oral as needed Active Vitamin D3 Ultra Strength 5000 UNIT 1 capsule Orally every few days Not-Taking Premarin 0.625 MG/GM 1/2 Vaginal twice a week for 90 days Not-Taking Multivital - as directed Orally Acti ve Restasis 0.05 % 1 drop into affected eye Ophthalmic Twice a day as ne eded Active Vitamin B12 100 MCG as directed Orally daily/occ Active PROCEDURES No Information RESULTS No Results REASON FOR VISIT cat 0 mammo MEDICAL (GENERAL) HISTORY Type Description Date Medical History labrythitis Medical History vitamin d deficiency Medical History hx. fibroids/then hysterecetomy Medical History hemhorroids Medical History MVP with murmur Medical History dry eye Medical History basal cell carcinoma face Medical History hypertension Medical History Susan hoover 8.39% Surgical History colonoscopy polypectomy 2017 Surgical History vaginal hyster.A&P repair fo r prolpased bladder and heavy flow fibroids at age 28 has both ovaries Surgical History tonsillectomy age 8 Surgical History left thumb arthoplasty Surgical History removal of basal CA, just below the righ t eye Surgical History Midlinel sling transvaginal and A&P repair Dr Alonzo with scar tissue removal 12/25/2016 Surgical History 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
--- OUTSIDE RECORDS SUMMARY | 2020-12-15 06:11 | CCD ---
Author Author [facility] Organization [facility] Address Unknown Phone Unavailable Care Team Providers Care Price Clerk Name Role Phone Jinny Esquivel Unavailable PROBLEMS Type Condition ICD9-CM Code NCJ30-DP Code Onset Dates Condition S tatus W/U Status Risk SNOMED Code Notes Problem Osteopenia, unspecified location M85.80 Active confirmed 109676271 Problem Vaginal wall prolapse N81.10 Active confirmed 254230451 Problem Menopausal disorder N95.9 Active confirmed 213614903 Problem Acquired absence of both cervix and uterus Z90.710 Active confirmed 226561567 Problem Midline cystocele N81.11 Active confirmed 42 5649593 Problem Hx of hysterectomy Z90.710 Active confirmed 063981500 Problem Rectocele N81.6 Active confirmed 772289016 Problem CRP elevated R79.82 Active confirmed 9314264 11807662 Problem Dry eye H04.129 Active confirmed 504901357 Problem Primary osteoarthritis involving multiple joints M 15.0 Active confirmed 546206602 ALLERGIES Allergen (clinical drug ingredient) Drug/Non Drug Allergy do cumented on EMR Reaction Allergy Type Onset Date Status meperidine Demerol(NDC Code:[address]-02) Nausea/Vomiting Drug Aller gy Active Penicillin (For Allergies Use Only) Hives Drug Allerg y Active patch glue (medical patches) Rash Non Drug Allergy Active juniper dow (gin) Anaphylaxis/ rash Non Drug Allergy Active meloxicam Meloxicam(NDC Code:[address]-21) patient is unsure Drug A llergy Active erythromycin Erythromycin(NDC Code:[address]-37) difficulty swallowing Drug Allergy Active ENCOUNTERS from 1950 to 2020-09-24 Encounter Location Date Provider Diagnosis [facility] [address] [facility] [phone] [place] [address] Aug, Jinny Sierra Routine gynecologica l examination Z01.419 ; Breast cancer screening by mammogram Z12.31 ; Hx of hysterectomy Z90.710 ; Menopausal disorder N95.9 and Vaginal wall prolapse N81.10 IMMUNIZATIONS No Information SOCIAL HISTORY Tobacco Use: Social History Observation Description Date Details (start date - stop date) Never Smoker Sex Assigned At : Social History Observation Description Sex Assigned At Unknown Education: Question Answer Notes Level of Education: College bachelors Language: Question Answer Notes Languages spoken: Georgian Rastafari: Question Answer Notes Rastafari No denominational beliefs that would impact health care. Alcohol [...] No Information VITAL SIGNS Weight 143 lbs Aug, Height 62 in Aug, BMI 26.15 kg/m2 Aug, Blood pressure systolic 112 mm Hg Aug, Blood pressure diastolic 68 mm Hg Aug, MEDICATIONS Medication SIG (Take, Route, Frequency, Duration) [...] Orally daily/occ Active PROCEDURES No Information RESULTS Component Value Reference Range WWBC DIGITAL / JIMMIE BILATERAL MAMMO SCRE ENING (Ultrasound if indicated) Reviewed date:09/23/2020 15:13:14 Interpretation:cat 0 Performing Lab:[facility],[address] ,[place] [address] REASON FOR VISIT annual/mammo MEDICAL (GENERAL) HISTORY Type Description Date Medical History labrythitis Medical History vitamin d deficiency Medical History hx. fibroids/then hysterecetomy Medical History hemhorroids Medical History MVP with murmur Medical History dry eye Medical History basal cell carcinoma face Medical History hypertension Medical History Tyrer andreasck 8.39% Surgical History colonoscopy polypectomy 2016 Surgical History [...] from pelvic ar ea blocking colon - [place] Dr Barnett 07/2017 Hospitalization History surgery / childbirth Hospitalization History as a child to r/o [facility] Goals Section No Information Health Concerns No Information MEDICAL EQUIPMENT No Information MENTAL STATUS No Information FUNCTIONAL STATUS No Information ASSESSMENTS Encounter Date Diagnosis Assessment Notes Treatment Notes Treatm ent Clinical Notes Aug, Routine gynecological examination (ICD-10 - Z01. 419) Aug, Breast cancer screening by mammogram (ICD-10 - Z 12.31) Reviewed screening intervals with mammography, recommend annual screening until age 75. Reviewed breast awareness, know what is normal for you so that you can detect any changes in the breasts, check breasts regularly, in a routine that you are comfortable with. Aug, Hx of hysterectomy (ICD-10 - Z90.710) Aug, Menopausal disorder (ICD-10 - N95.9) d/w patient that after reducing dose to one tablet q 3 days, she is ready to completely discontinue the rx. Aug, Vaginal wall prolapse (ICD-10 - N81.10) PLAN OF TREATMENT Treatment Notes Assessment Notes Clinical Notes Breast cancer screening by mammogram Rev iewed screening intervals with mammography, recommend annual screening until age 75. Reviewed breast awareness, know what is normal for you so that you can detect any changes in the breasts, check breasts regularly, in a routine that you are comfortable with. Menopausal disorder d/w patient that aft er reducing dose to one tablet q 3 days, she is ready to completely discontinue the rx. Next Appt Details 1 Year Reason:- Annual follow up Follow Up:1 Year- Annual follow up Insurance Providers Payer Name Payer Address Payer Phone Insured Name Patient Relati onship to Insured Coverage Start Date Coverage End Date MEDICARE Part A and B [address] [facility] [phone] [facility] [address] [id number] [facility] [phone] AYANA ABREU
[2020-12-15] MEDS ORDERED: LIDOCAINE 1% SDV 30ML VIAL As Ordered ONE (07:16)
[2020-12-15] MEDS ORDERED: BUPIVACAINE HCL 0.25% 30ML VIAL As Ordered ONE (07:16)
[2020-12-15] MEDS ORDERED: ONDANSETRON 4MG/2ML VIAL As Ordered ONE (07:47)
[2020-12-15] MEDS ORDERED: dexameTHASONE 4 MG/ML 1ML VIAL (J1100 PER 1MG) As Ordered ONE (07:47)
[2020-12-15] MEDS ORDERED: LIDOCAINE 2% 100MG/5ML SDV (FOR ANES.) As Ordered ONE (07:47)
[2020-12-15] MEDS ORDERED: fentaNYL 100 MCG/2 ML INJECTION (J3010) As Ordered ONE (07:47)
[2020-12-15] MEDS ORDERED: propofoL 200 MG/20 ML VIAL As Ordered ONE (07:47)
[2020-12-15] MEDS ORDERED: PHENYLephrine 500MCG 5ML (100MCG/ML) SYRINGE As Ordered ONE (07:50)
[2020-12-15] MEDS ORDERED: ePHEDrine SULFATE 25 MG/5 ML(5MG/ML) SYRINGE As Ordered ONE ×2 (07:54→09:25)
[2020-12-15] MEDS ORDERED: ACETAMINOPHEN 1000MG 100ML IV BTL (OFIRMEV) (J0131 PER 10MG) As Ordered ONE (08:39)
[2020-12-15] MEDS ORDERED: LR 1,000 ML IV SCH (10:00)
[2020-12-15] MEDS ORDERED: PERCOCET 5MG/325MG TAB PO PRN (10:00)
[2020-12-15] MEDS ORDERED: fentaNYL 100 MCG/2 ML INJECTION (J3010) IV PRN (10:00)
[2020-12-15] MEDS ORDERED: ONDANSETRON 4MG/2ML VIAL IV PRN (10:00)
[2020-12-15 11:55] VITALS: BP 114/70
--- NOTE | 2020-12-15 21:17 | POST-OPPD ---
Postoperative Procedure Note Date Of Procedure: Dec 15, 2020 PREOPERATIVE DIAGNOSIS: right breast cancer POSTOPERATIVE DIAGNOSIS: same PROCEDURE: Right breast lumpectomy cavity excision SURGEON: Mario Albrecht ANESTHESIA: general ESTIMATED BLOOD LOSS: 50 cc FINDINGS: entire lumpectomy cavity was excised COMPLICATIONS: none POSTOPERATIVE CONDITION: good MARIO ALBRECHT DO Dec 15, 2020 21:17
--- NOTE | 2020-12-15 21:42 | ROOPDOC ---
[facility] Report Of Operation Report of Operation DATE OF PROCEDURE: 12/15/20 PREPROCEDURE DIAGNOSES: right breast cancer POSTPROCEDURE DIAGNOSES: same PROCEDURE PERFORMED: right breast lumpectomy cavity re-excision SURGEON: Dr Mario Albrecht ANESTHESIA: general ESTIMATED BLOOD LOSS: Approximately 50 mL. COMPLICATIONS: none REMARKS: 6 margin clips were identified PROCEDURE NOTE: INDICATIONS: Ms. Linares is a 69-year-old woman who was found to have a suspicious right breast mass on mammogram. This was evaluated with right breast US and sonographic correlate was found. US guided biopsy of the right breast mass came back as IDC, ER +, TX+, HER-2 negative. Patient had MRI of the breast which did not show any additional suspicious lesions. She opted for breast conservative surgery with sentinel lymph node biopsy on the right side. This was done 11/10/20. In addition to know IDC a few foci of ILC were found as well which was a surprise. The margins were negative but close. Patients case was presented at [facility] tumor board and second opinion was obtained from physician from [facility]. Suggestion was made to reexcise margins to see if additional cancer is found. This option was presented to the patient and she wished to proceed with this approach. Risks and possible complications of surgical procedure including bleeding, infection and injury to surrounding structures were explained to the patient and she wished to proceed. Consent was signed. My initials were placed on the operative site. Subcutaneous injection of 5000 units of heparin was done in Preop. DETAILS: Patient was taken to the operating room and placed on the operating room table. A sign in was called stating patients name, date of and the procedure to be done. Preoperative antibiotics were infused. Smooth induction of general anesthesia was done. Patient right hand was extended on arm rest. Care was taken not to over extend the arm. Left arm was tucked in. Pillow was placed under the knees and a foam was placed under the heels. Sequential compression devices were placed and assured to function correctly. The procedure was started with opening the previous right periareolar incision. This was done with scalpel. Blunt dissection was carried toward the lumpectomy cavity which was identified with intraop ultrasound. Previously placed 2-0 Vicryl dyed sutures closing the lumpectomy cavity were identified and removed. Entire lumpectomy cavity was excised en-block. Specimen was carefully moved to the back table and marked with the surgical inking kit following the standard colors recommendations with the exception that the margin closes to the lumpectomy site (false margin) was left uninked. Specimen measured 5.5 x5 cm Specimen was then placed on the grid and placed in [employer] Specimen Imaging System. The image revealed 6 previously placed margin clips in the middle of the specimen. The specimen was labeled with patients name and right lumpectomy cavity excision and sent to pathology. A new clip was placed at the new right breast lumpectomy margin. Next, the wound was irrigated thoroughly and adequate hemostasis was assured. Additional local anesthetic was injected into surrounding tissues. space was approximated with 2-0 Vicryl. The dermis was closed with 3-0 Vicryl and skin was closed with 4-0 Monocryl. Surgical glue was placed over the incision. Patient emerged from the anesthesia without any problems. Fluffs were placed over the operative site and patients chest was wrapped snuggly in the JEFE wrap. Sponge and instrument counts were done and were correct. Patient tolerated procedure well and was taken to recovery unit in stable condition. MARIO ALBRECHT DO Dec 15, 2020 21:18
== END 2020-12-15 11:55 | disposition home or self-care (01) ==
LOC: M SDC 06:05
PROVIDERS: ATTEND Surgery
DX: D05.11 Intraductal carcinoma in situ of right breast (principal); Z79.890 Hormone replacement therapy; I10 Essential (primary) hypertension; E55.9 Vitamin D deficiency, unspecified; H83.09 Labyrinthitis, unspecified ear; I34.1 Nonrheumatic mitral (valve) prolapse; R01.1 Cardiac murmur, unspecified; H04.129 Dry eye syndrome of unspecified lacrimal gland; Z91.048 Other nonmedicinal substance allergy status; Z88.1 Allergy status to other antibiotic agents; Z88.8 Allergy status to other drugs, medicaments and biological substances; Z88.0 Allergy status to penicillin; Z88.4 Allergy status to anesthetic agent; Z79.899 Other long term (current) drug therapy
CPT/HCPCS: 19125; 88307; 88342; J0131; J1100; J1644; J2370; J2405; J3010

== ENCOUNTER → 2020-12-24 | Outpatient (CLI) | payer MEDICARE, OTHER ==
[~2020-12-24] MED LIST changes: -CLINDAMYCIN 900 MG in IV 1 EA IV ONE; -HEPARIN SOD (PORCINE) 5000UNITS/ML 1ML VIAL/SYRINGE SQ ONE; -LIDOCAINE 1% MDV 20ML VIAL SQ PRN; -LR 1,000 ML IV ONE
--- NOTE | 2020-12-24 14:51 | DEXAMM ---
INDICATION: H/X BREAST CA STARTING AI THERAPY. COMPARISON: 10/03/2016 as well as other prior exams. TECHNIQUE: Bone density was measured using dual-energy x-ray absorptiometry (DEXA). FINDINGS: AP SPINE L1-L4 BMD 1.029 g/cm2 Young Adult T-Score -1.3 Age Matched Z-Score 0.4. LT FEMUR, TOTAL BMD 0.950 g/cm2 Young Adult T-Score -0.5 Age Matched Z-Score 1.0. LT NECK BMD 0.914 g/cm2 Young Adult T-Score -0.9 Age Matched Z-Score 0.8. RT FEMUR, TOTAL BMD 0.918 g/cm2 Young Adult T-Score -0.7 Age Matched Z-Score 0.7. RT NECK BMD 0.833 g/cm2 Young Adult T-Score -1.5 Age Matched Z-Score 0.2. IMPRESSION: There is low bone density of the spine. There is normal bone density of the left hip. There is low bone density of the right hip. The density of the spine has decreased 0.7% since the initial exam on 06/21/2005. The density of the spine decreased 6.1% since most recent exam on 10/03/2016. The density of the left hip has decreased 1.5% since initial exam on 06/21/2005. The density of the left hip has decreased 3.1% since most recent exam on 10/03/2016. The density of the right hip has decreased 1.3% since the initial exam on 06/21/2005. The density of the right hip has decreased 3.6% since the most recent exam on 10/03/2016. FOLLOW-UP: Recommendation for the next bone density exam: 2 years. <Electronically signed by John Randolph > 12/24/20 [id number]
== END ==
LOC: M WHC 10:06
PROVIDERS: ATTEND Specialist
DX: Z85.3 Personal history of malignant neoplasm of breast (principal)

== ENCOUNTER → 2021-01-07 | Outpatient (CLI) | payer MEDICARE, OTHER | LOC: M LABSMTC 10:22 | PROVIDERS: ATTEND Anesthesiology | DX: Z01.818 Encounter for other preprocedural examination (principal); Z11.52 Encounter for screening for COVID-19 ==

== ENCOUNTER 2021-01-12 06:11 | Observation (INO) | payer MEDICARE, OTHER ==
[~2021-01-12] VITALS: Ht 157.5 cm; Wt 64.0 kg
[~2021-01-12 06:11] MED LIST changes: -CITA10TA5 PO; +CITA10TA7 PO; +CLINDAMYCIN 900 MG in IV 1 EA IV ONE; -DICY20TA11 PO; +DICY20TA20 PO; +HEPARIN SOD (PORCINE) 5000UNITS/ML 1ML VIAL/SYRINGE SQ ONE; +LR 1,000 ML IV ONE; +NS 1,000 ML IV SCH
[2021-01-12] MEDS ORDERED: BUPIVACAINE LIPOSOME/PF 1.3% 20ML VIAL (13.3MG/ML)(EXPAREL)(C9290 PER1MG) As Ordered ONE (07:11)
[2021-01-12] MEDS ORDERED: LIDOCAINE 2% 100MG/5ML SDV (FOR ANES.) As Ordered ONE (07:12)
[2021-01-12] MEDS ORDERED: ROCURONIUM BROMIDE 50 MG/5 ML VIAL As Ordered ONE (07:12)
[2021-01-12] MEDS ORDERED: dexameTHASONE 4 MG/ML 1ML VIAL (J1100 PER 1MG) As Ordered ONE (07:12)
[2021-01-12] MEDS ORDERED: ACETAMINOPHEN 1000MG 100ML IV BTL (OFIRMEV) (J0131 PER 10MG) As Ordered ONE (07:12)
[2021-01-12] MEDS ORDERED: propofoL 200 MG/20 ML VIAL As Ordered ONE (07:12)
[2021-01-12] MEDS ORDERED: fentaNYL 100 MCG/2 ML INJECTION As Ordered ONE (07:12)
[2021-01-12] MEDS ORDERED: ONDANSETRON 4MG/2ML VIAL As Ordered ONE (07:12)
[2021-01-12] MEDS ORDERED: METOCLOPRAMIDE INJ 10MG/2ML VIAL (J2765 PER 1) As Ordered ONE (07:12)
[2021-01-12] MEDS ORDERED: SCOPOLAMINE 1MG TRANSDERMAL PATCH TOP ONE (07:15)
[2021-01-12] MEDS ORDERED: HYDROmorphone HCL 2MG/ML 1ML VIAL As Ordered ONE (08:31)
[2021-01-12] MEDS ORDERED: SUGAMMADEX SODIUM 500 MG/5 ML VIAL (BRIDION) As Ordered ONE (10:58)
[2021-01-12] MEDS ORDERED: LR 1,000 ML IV SCH (12:05)
[2021-01-12] MEDS ORDERED: oxyCODONE 5MG TAB PO PRN (12:05)
[2021-01-12] MEDS ORDERED: ACETAMINOPHEN TAB 650MG DOSE (2X325MG) PO PRN (12:05)
[2021-01-12] MEDS ORDERED: ONDANSETRON 4MG/2ML VIAL IV PRN ×2 (12:05)
[2021-01-12] MEDS ORDERED: HYDROMORPHONE HCL 0.5 MG/ 0.5 ML SYRINGE (J1170 PER 1) IV PRN (12:05)
[2021-01-12] MEDS ORDERED: MORPHINE 2 MG/ML 1ML VIAL (J2270) IV PRN (12:05)
[2021-01-12] MEDS ORDERED: traMADol 50 MG TAB PO PRN (12:05)
[2021-01-12] MEDS ORDERED: fentaNYL 100 MCG/2 ML INJECTION IV PRN (12:05)
[2021-01-12 15:40] VITALS: BP 114/70
[2021-01-12] MEDS: LR 1,000 ML IV SCH (16:12)
[2021-01-12 16:30] VITALS: BP 106/67
[2021-01-12 17:00] VITALS: BP 123/73
[2021-01-12] MEDS: CLINDAMYCIN 900 MG in IV 1 EA IV SCH (17:10)
[2021-01-12 18:30] VITALS: BP 113/71
[2021-01-12 19:30] VITALS: BP 108/68
[2021-01-12 20:30] VITALS: BP 107/66
[2021-01-12] MEDS: HEPARIN SOD (PORCINE) 5000UNITS/ML 1ML VIAL/SYRINGE SQ SCH (22:03)
[2021-01-13 00:30] VITALS: BP 107/62
[2021-01-13] MEDS: CLINDAMYCIN 900 MG in IV 1 EA IV SCH ×2 (01:22→08:35)
[2021-01-13 04:30] VITALS: BP 107/60
[2021-01-13] MEDS: HEPARIN SOD (PORCINE) 5000UNITS/ML 1ML VIAL/SYRINGE SQ SCH (05:55)
[2021-01-13] MEDS: LR 1,000 ML IV SCH (08:05)
[2021-01-13 08:30] VITALS: BP 107/82
[2021-01-13] MEDS ORDERED: TRAM50TA2 PO (09:05)
[2021-02-02] MEDS ORDERED: ANAS1TAB2 PO (13:44)
[2021-03-02] MEDS ORDERED: ANAS1TAB2 PO (16:02)
== END 2021-01-13 11:48 | disposition home or self-care (01) ==
LOC: M SDC 06:11 → M MS5PR 06:12 → M MSPAV 15:27 → M SDC 01-13 11:48
PROVIDERS: ADMIT Surgery; ATTEND Plastic Surgery Surgery of the Hand
DX: C50.911 Malignant neoplasm of unspecified site of right female breast (principal); Z80.9 Family history of malignant neoplasm, unspecified; Z79.890 Hormone replacement therapy; Z88.0 Allergy status to penicillin; Z88.8 Allergy status to other drugs, medicaments and biological substances
CPT/HCPCS: 19303; 64450; 86850; 86900; 86901; 88307; 88342; 96365; 96366; 96372; C9290; G0378; J0131; J1100; J1170; J1644; J2405; J2765; J3010

== ENCOUNTER 2021-02-23 11:39 | Outpatient (RCR) | payer MEDICARE, OTHER ==
[~2021-02-23 11:39] MED LIST changes: +ANAS1TAB2 PO; +CITA10TA5 PO; -CITA10TA7 PO; -CLINDAMYCIN 900 MG in IV 1 EA IV ONE; +DICY20TA11 PO; -DICY20TA20 PO; -HEPARIN SOD (PORCINE) 5000UNITS/ML 1ML VIAL/SYRINGE SQ ONE; -LR 1,000 ML IV ONE; -NS 1,000 ML IV SCH; +TRAM50TA2 PO
== END 2021-02-26 ==
LOC: M PT 11:39
PROVIDERS: ATTEND Surgery
DX: G89.18 Other acute postprocedural pain (principal)

== ENCOUNTER 2021-03-09 13:30 | Outpatient (RCR) | payer MEDICARE, OTHER ==
[~2021-03-09 13:30] MED LIST changes: -CITA10TA5 PO; +CITA10TA7 PO; -DICY20TA11 PO; +DICY20TA20 PO
== END 2021-03-29 ==
LOC: M PT 13:30
PROVIDERS: ATTEND Surgery
DX: G89.18 Other acute postprocedural pain (principal)

== ENCOUNTER → 2021-05-25 | Outpatient (CLI) | payer MEDICARE, OTHER ==
[~2021-05-25] MED LIST changes: -D31000TA2 PO; +VENL37.598 PO; +VITA100093 PO
== END ==
LOC: M PLAIMG 15:38
PROVIDERS: ATTEND Psychiatry & Neurology Neurology
DX: G31.84 Mild cognitive impairment of uncertain or unknown etiology (principal)

== ENCOUNTER → 2021-07-07 | Outpatient (CLI) | payer MEDICARE, OTHER ==
[2021-07-07 11:07] LABS: BASO % 0.7 % (0.0-1.0); EOS # 0.1 10^3/uL (0.0-0.5); EOS % 1.5 % (0.0-3.0); HEMATOCRIT 40.2 % (36.0-47.0); HEMOGLOBIN 13.2 g/dl (12.0-15.5); LYMPH # 1.9 10^3/uL (1.5-5.0); LYMPH % 34.2 % (24.0-44.0); MEAN CORPUSCULAR HEMOGLOBIN 30.5 pg (27.0-33.0); MEAN CORPUSCULAR HGB CONC 32.8 g/dl (32.0-36.5); MEAN CORPUSCULAR VOLUME 92.8 fl (80.0-96.0); MONO # 0.5 10^3/uL (0.0-0.8); MONO % 8.8 % (2.0-8.0); NEUTROPHILS % 54.3 % (36.0-66.0); PLATELET COUNT, AUTOMATED 265 10^3/uL (150-450); RED BLOOD COUNT 4.33 10^6/uL (4.00-5.40); WHITE BLOOD COUNT 5.5 10^3/uL (4.0-10.0)
[2021-07-07 11:31] LABS: ALBUMIN 3.9 GM/DL (3.2-5.2); ALT/SGPT 28 U/L (12-78); BILIRUBIN,TOTAL 0.6 MG/DL (0.2-1.0); BLOOD UREA NITROGEN 27 MG/DL (7-18); CARBON DIOXIDE LEVEL 30 MEQ/L (21-32); CHLORIDE LEVEL 111 MEQ/L (98-107); GLOMERULAR FILTRATION RATE > 60.0 (>39); GLUCOSE, FASTING 97 MG/DL (70-100); POTASSIUM SERUM 4.4 MEQ/L (3.5-5.1); SODIUM LEVEL 142 MEQ/L (136-145); TOTAL PROTEIN 6.9 GM/DL (6.4-8.2)
== END ==
LOC: M LAB 10:16
PROVIDERS: ATTEND Psychiatry & Neurology Neurology
DX: G31.84 Mild cognitive impairment of uncertain or unknown etiology (principal)

== ENCOUNTER 2022-03-31 12:49 | Emergency (ER) | payer MEDICARE, OTHER ==
[~2022-03-31] VITALS: Ht 157.5 cm; Wt 67.3 kg
[~2022-03-31 12:49] MED LIST changes: +RIVA1.5C23 PO
[2022-03-31] MEDS ORDERED: NS 1,000 ML IV ONE (13:45)
[2022-03-31 14:19] LABS: BASO % 0.3 % (0.0-1.0); EOS % 0.1 % (0.0-3.0); HEMATOCRIT 40.8 % (36.0-47.0); LYMPH # 0.7 10^3/uL (1.5-5.0); LYMPH % 8.1 % (24.0-44.0); MEAN CORPUSCULAR HEMOGLOBIN 29.5 pg (27.0-33.0); MEAN CORPUSCULAR HGB CONC 31.9 g/dl (32.0-36.5); MEAN CORPUSCULAR VOLUME 92.7 fl (80.0-96.0); MONO # 0.3 10^3/uL (0.0-0.8); MONO % 3.5 % (2.0-8.0); NEUTROPHILS # 7.4 10^3/uL (1.5-8.5); NEUTROPHILS % 86.7 % (36.0-66.0); PLATELET COUNT, AUTOMATED 203 10^3/uL (150-450); WHITE BLOOD COUNT 8.6 10^3/uL (4.0-10.0)
[2022-03-31 14:44] LABS: CK-MB VALUE MASS < 1.0 NG/ML (<3.6)
[2022-03-31 15:00] LABS: INR 1.04; PARTIAL THROMBOPLASTIN TIME 24.4 SECONDS (24.8-34.2); PROTHROMBIN TIME 13.8 SECONDS (12.5-14.5); RSV AMPLIFICATION NEGATIVE (NEGATIVE)
[2022-03-31 15:02] LABS: LIPASE 30 U/L (12-53)
[2022-03-31 15:05] LABS: ALBUMIN 3.7 G/DL (3.2-5.2); ALKALINE PHOSPHATASE 70 U/L (46-116); ALT/SGPT 46 U/L (7.0-40); AST/SGOT 32 U/L (<34); BILIRUBIN,DIRECT 0.1 MG/DL (<0.4); BILIRUBIN,TOTAL 0.4 MG/DL (0.3-1.2); BLOOD UREA NITROGEN 24 MG/DL (9-23); CALCIUM LEVEL 8.2 MG/DL (8.3-10.6); CARBON DIOXIDE LEVEL 22 MMOL/L (20-31); CHLORIDE LEVEL 110 MMOL/L (98-107); CPK CREATINE PHOSPHOKINASE 67 U/L (34-145); CREATININE FOR GFR 0.57 MG/DL (0.55-1.30); GLOMERULAR FILTRATION RATE > 60.0 (>39); GLUCOSE, FASTING 152 MG/DL (74-106); MB/CK RELATIVE INDEX 1.49 (< OR =4); POTASSIUM SERUM 3.9 MMOL/L (3.5-5.1); SODIUM LEVEL 142 MMOL/L (136-145); TOTAL PROTEIN 6.5 G/DL (5.7-8.2)
[2022-03-31] MEDS ORDERED: ISOVUE-370 76% 100ML VIAL As Ordered ONE (15:05)
[2022-03-31] MEDS ORDERED: GI COCKTAIL 50ML BTL(HYOSCYAMINE/MAALOX/LIDOCAINE VISCOUS)(1:3:1) PO ONE (16:00)
[2022-03-31 16:30] VITALS: BP 121/73
[2022-03-31] MEDS ORDERED: SUCR1TA PO (16:43)
[2022-03-31] MEDS ORDERED: OMEP40CA4 PO (16:43)
[2022-03-31 17:03] LABS: CK-MB VALUE MASS < 1.0 NG/ML (<3.6)
[2022-03-31 17:18] LABS: CPK CREATINE PHOSPHOKINASE 71 U/L (34-145)
[2022-04-04] MEDS ORDERED: ANAS1TAB2 PO (15:09)
== END 2022-03-31 17:07 | disposition home or self-care (01) ==
LOC: M ED 12:49 → EDBD 12:49 → M ED 17:07
DX: R10.9 Unspecified abdominal pain (principal); I10 Essential (primary) hypertension; Z90.710 Acquired absence of both cervix and uterus; C50.211 Malignant neoplasm of upper-inner quadrant of right female breast; Z85.828 Personal history of other malignant neoplasm of skin; Z88.0 Allergy status to penicillin; Z88.8 Allergy status to other drugs, medicaments and biological substances; Z91.048 Other nonmedicinal substance allergy status; Z79.899 Other long term (current) drug therapy
CPT/HCPCS: 36415; 74177; 80048; 80076; 82550; 82553; 83605; 83690; 84484; 85025; 85610; 85730; 87040; 87631; 93005; 93041; 99285; Q9967

== ENCOUNTER 2022-04-02 11:53 | Observation (INO) | payer MEDICARE, OTHER ==
[~2022-04-02] VITALS: Ht 157.5 cm; Wt 69.0 kg
[~2022-04-02 11:53] MED LIST changes: +OMEP40CA4 PO; +SUCR1TA PO
[2022-04-02] MEDS ORDERED: NS 1,000 ML IV ONE (13:35)
[2022-04-02 13:44] LABS: BASO % 0.2 % (0.0-1.0); EOS # 0.1 10^3/uL (0.0-0.5); EOS % 0.7 % (0.0-3.0); HEMATOCRIT 39.9 % (36.0-47.0); HEMOGLOBIN 13.5 g/dl (12.0-15.5); LYMPH # 1.8 10^3/uL (1.5-5.0); MEAN CORPUSCULAR HEMOGLOBIN 30.3 pg (27.0-33.0); MEAN CORPUSCULAR HGB CONC 33.8 g/dl (32.0-36.5); MEAN CORPUSCULAR VOLUME 89.7 fl (80.0-96.0); MONO # 0.8 10^3/uL (0.0-0.8); MONO % 9.6 % (2.0-8.0); NEUTROPHILS # 5.4 10^3/uL (1.5-8.5); NEUTROPHILS % 66.8 % (36.0-66.0); PLATELET COUNT, AUTOMATED 230 10^3/uL (150-450); RED BLOOD COUNT 4.45 10^6/uL (4.00-5.40)
[2022-04-02] MEDS ORDERED: ONDANSETRON 4MG 2ML VIAL IV ONE ×2 (13:45→15:45)
[2022-04-02] MEDS ORDERED: MORPHINE 4 MG/ML 1ML VIAL IV ONE ×2 (13:45→14:30)
[2022-04-02 14:10] LABS: LIPASE 33 U/L (12-53)
[2022-04-02 14:18] LABS: ALKALINE PHOSPHATASE 70 U/L (46-116); ALT/SGPT 36 U/L (7.0-40); AST/SGOT 42 U/L (<34); BILIRUBIN,DIRECT 0.2 MG/DL (<0.4); BLOOD UREA NITROGEN 22 MG/DL (9-23); CALCIUM LEVEL 8.9 MG/DL (8.3-10.6); CARBON DIOXIDE LEVEL 23 MMOL/L (20-31); CHLORIDE LEVEL 106 MMOL/L (98-107); CREATININE FOR GFR 0.73 MG/DL (0.55-1.30); GLOMERULAR FILTRATION RATE > 60.0 (>39); GLUCOSE, FASTING 106 MG/DL (74-106); POTASSIUM SERUM 3.3 MMOL/L (3.5-5.1); SODIUM LEVEL 141 MMOL/L (136-145); TOTAL PROTEIN 7.1 G/DL (5.7-8.2)
[2022-04-02] MEDS ORDERED: ISOVUE-370 76% 100ML VIAL As Ordered ONE (14:25)
[2022-04-02] MEDS ORDERED: cefTRIAXone SOD 1 GM in D5W MINI-BAG PLUS 50 ML IV ONE (14:30)
[2022-04-02] MEDS ORDERED: ACETAMINOPHEN 1000MG 100ML IV BAG IV ONE (15:40)
[2022-04-02] MEDS ORDERED: TAMSULOSIN 0.4 MG CAP PO ONE (15:45)
[2022-04-02] MEDS ORDERED: ISOVUE-300 61% 100ML VIAL As Ordered ONE (16:36)
[2022-04-02] MEDS ORDERED: propofoL 200 MG/20 ML VIAL As Ordered ONE (16:51)
[2022-04-02] MEDS ORDERED: ONDANSETRON 4MG 2ML VIAL As Ordered ONE (16:51)
[2022-04-02] MEDS ORDERED: LIDOCAINE 2% 100MG/5ML SDV (FOR ANES.) As Ordered ONE (16:51)
[2022-04-02] MEDS ORDERED: fentaNYL 100 MCG/2 ML INJECTION As Ordered ONE (16:52)
[2022-04-02] MEDS ORDERED: ACETAMINOPHEN 1000MG 100ML IV BAG As Ordered ONE (16:56)
[2022-04-02] MEDS ORDERED: ROCURONIUM BROMIDE 50MG/5ML VIAL As Ordered ONE (16:56)
[2022-04-02 17:01] LABS: RSV AMPLIFICATION NEGATIVE (NEGATIVE)
[2022-04-02] MEDS ORDERED: PERCOCET 5MG/325MG TAB PO PRN (17:30)
[2022-04-02] MEDS ORDERED: MORPHINE 2 MG/ML 1ML VIAL IV PRN (17:30)
[2022-04-02] MEDS ORDERED: CLINDAMYCIN 600MG/50ML PREMIX BAG As Ordered ONE (17:38)
[2022-04-02] MEDS ORDERED: SUGAMMADEX SODIUM 500 MG/5 ML VIAL (BRIDION) As Ordered ONE (18:08)
[2022-04-02] MEDS ORDERED: KETOROLAC 60MG 2ML VIAL As Ordered ONE (18:08)
[2022-04-02] MEDS ORDERED: PHENYLephrine 500MCG 5ML (100MCG/ML) SYRINGE As Ordered ONE ×2 (18:18→18:25)
[2022-04-02] MEDS ORDERED: NS 1,000 ML IV SCH (18:40)
[2022-04-02] MEDS ORDERED: fentaNYL 100 MCG/2 ML INJECTION IV PRN (18:40)
[2022-04-02] MEDS ORDERED: oxyCODONE 5MG TAB PO PRN (18:40)
[2022-04-02] MEDS ORDERED: METOCLOPRAMIDE INJ 10MG/2ML VIAL IV PRN (18:40)
[2022-04-02] MEDS ORDERED: HOME MED LIST COMPLETE! XX SCH (19:55)
[2022-04-02] MEDS: KCL 10MEQ/100ML SWI (KRUN) 10 MEQ in IV 1 EA IV SCH ×3 (20:08→23:35)
[2022-04-02] MEDS: NS 1,000 ML IV SCH (20:09)
[2022-04-02 21:23] VITALS: BP 121/74
[2022-04-02 21:59] VITALS: BP 122/72
[2022-04-02 22:53] VITALS: BP 130/69
[2022-04-03] VITALS: BP 126/68
[2022-04-03 02:00] VITALS: BP 115/50
[2022-04-03 05:47] LABS: HEMATOCRIT 34.2 % (36.0-47.0); MEAN CORPUSCULAR HEMOGLOBIN 30.5 pg (27.0-33.0); MEAN CORPUSCULAR HGB CONC 33.3 g/dl (32.0-36.5); MEAN CORPUSCULAR VOLUME 91.4 fl (80.0-96.0); PLATELET COUNT, AUTOMATED 204 10^3/uL (150-450); RED BLOOD COUNT 3.74 10^6/uL (4.00-5.40); WHITE BLOOD COUNT 8.2 10^3/uL (4.0-10.0)
[2022-04-03 05:51] LABS: HEMOGLOBIN 11.4 g/dl (12.0-15.5)
[2022-04-03 06:01] VITALS: BP 121/73
[2022-04-03 06:05] LABS: BLOOD UREA NITROGEN 16 MG/DL (9-23); CALCIUM LEVEL 7.3 MG/DL (8.3-10.6); CARBON DIOXIDE LEVEL 22 MMOL/L (20-31); CHLORIDE LEVEL 112 MMOL/L (98-107); CREATININE FOR GFR 0.66 MG/DL (0.55-1.30); GLOMERULAR FILTRATION RATE > 60.0 (>39); GLUCOSE, FASTING 147 MG/DL (74-106); POTASSIUM SERUM 3.9 MMOL/L (3.5-5.1); SODIUM LEVEL 142 MMOL/L (136-145)
[2022-04-03 08:01] VITALS: BP 121/73
[2022-04-03] MEDS: NS 1,000 ML IV SCH (08:01)
[2022-04-03] MEDS ORDERED: cefTRIAXone SOD 1 GM in D5W MINI-BAG PLUS 50 ML IV SCH (09:00)
[2022-04-03] MEDS ORDERED: CEFD300C41 PO (10:34)
[2022-04-03] MEDS ORDERED: PERCOCET PO (10:34)
[2022-04-04] MEDS ORDERED: ANAS1TAB2 PO (15:09)
[2022-04-07 13:08] LABS: CA Oxalate Dihy 90 % (.); Ca Ox Monohydrate 10 % (.); Size 2x2 mm (.)
== END 2022-04-03 12:08 | disposition home or self-care (01) ==
LOC: M ED 11:53 → INTOOBSV 17:22 → M ED INP 17:22 → M MSPAV 19:40
PROVIDERS: ADMIT Internal Medicine; ATTEND Internal Medicine
DX: N20.1 Calculus of ureter (principal); N13.30 Unspecified hydronephrosis; E87.6 Hypokalemia; F02.A0 Dementia in other diseases classified elsewhere, mild, without behavioral disturbance, psychotic disturbance, mood disturbance, and anxiety; I10 Essential (primary) hypertension; Z86.000 Personal history of in-situ neoplasm of breast; Z90.13 Acquired absence of bilateral breasts and nipples; Z85.820 Personal history of malignant melanoma of skin; Z85.40 Personal history of malignant neoplasm of unspecified female genital organ; Z90.710 Acquired absence of both cervix and uterus; Z88.0 Allergy status to penicillin; Z88.1 Allergy status to other antibiotic agents; Z88.8 Allergy status to other drugs, medicaments and biological substances; Z88.4 Allergy status to anesthetic agent; Z91.048 Other nonmedicinal substance allergy status; Z79.899 Other long term (current) drug therapy; Z79.2 Long term (current) use of antibiotics
CPT/HCPCS: 36415; 52356; 72131; 74177; 74420; 80048; 80076; 81000; 81015; 82365; 83605; 83690; 85025; 85027; 87040; 87086; 87631; 93005; 96361; 96365; 96366; 96375; 96376; 99284; C1769; C2617; G0378; J0131; J0696; J1100; J1885; J2270; J2370; J2405; J3010; Q9967

== ENCOUNTER → 2022-09-27 | Outpatient (CLI) | payer MEDICARE, OTHER ==
[~2022-09-27] MED LIST changes: +CEFD300C41 PO; +MECL-136 PO; +PERCOCET PO
[2022-09-27 18:33] LABS: ALBUMIN 4.1 G/DL (3.2-5.2); ALKALINE PHOSPHATASE 80 U/L (46-116); ALT/SGPT 33 U/L (7.0-40); AST/SGOT 16 U/L (<34); BILIRUBIN,TOTAL 0.4 MG/DL (0.3-1.2); BLOOD UREA NITROGEN 29 MG/DL (9-23); CALCIUM LEVEL 9.6 MG/DL (8.3-10.6); CARBON DIOXIDE LEVEL 25 MMOL/L (20-31); CHLORIDE LEVEL 110 MMOL/L (98-107); CREATININE FOR GFR 0.67 MG/DL (0.55-1.30); GLOMERULAR FILTRATION RATE > 60.0 (>39); GLUCOSE, FASTING 107 MG/DL (74-106); POTASSIUM SERUM 4.3 MMOL/L (3.5-5.1); SODIUM LEVEL 144 MMOL/L (136-145); TOTAL PROTEIN 6.6 G/DL (5.7-8.2)
[2022-09-27 18:37] LABS: CARCINOEMBRYONIC ANTIGEN < 2.0 NG/ML (<2.5)
[2022-09-27 18:39] LABS: BASO % 0.4 % (0.0-1.0); EOS # 0.1 10^3/uL (0.0-0.5); EOS % 2.6 % (0.0-3.0); HEMATOCRIT 41.2 % (36.0-47.0); HEMOGLOBIN 13.5 g/dl (12.0-15.5); LYMPH # 1.7 10^3/uL (1.5-5.0); LYMPH % 33.3 % (24.0-44.0); MEAN CORPUSCULAR HEMOGLOBIN 30.8 pg (27.0-33.0); MEAN CORPUSCULAR HGB CONC 32.8 g/dl (32.0-36.5); MEAN CORPUSCULAR VOLUME 94.1 fl (80.0-96.0); MONO # 0.4 10^3/uL (0.0-0.8); MONO % 8.4 % (2.0-8.0); NEUTROPHILS # 2.7 10^3/uL (1.5-8.5); NEUTROPHILS % 54.5 % (36.0-66.0); PLATELET COUNT, AUTOMATED 247 10^3/uL (150-450); RED BLOOD COUNT 4.38 10^6/uL (4.00-5.40)
[2022-09-27 18:52] LABS: CA15-3 ANTIGEN 14.2 U/ML (<32.4)
== END ==
LOC: M PLALAB 14:53
PROVIDERS: ATTEND Nurse Practitioner
DX: C50.919 Malignant neoplasm of unspecified site of unspecified female breast (principal)

== ENCOUNTER → 2023-04-03 | Outpatient (CLI) | payer MEDICARE, OTHER ==
[~2023-04-03] MED LIST changes: +CEFD1CAP9 PO; -CEFD300C41 PO
[2023-04-03 12:54] LABS: BASO % 0.7 % (0.0-1.0); EOS # 0.2 10^3/uL (0.0-0.5); EOS % 2.8 % (0.0-3.0); HEMATOCRIT 43.3 % (36.0-47.0); HEMOGLOBIN 14.1 g/dl (12.0-15.5); LYMPH # 2.2 10^3/uL (1.5-5.0); MEAN CORPUSCULAR HEMOGLOBIN 30.3 pg (27.0-33.0); MEAN CORPUSCULAR HGB CONC 32.6 g/dl (32.0-36.5); MEAN CORPUSCULAR VOLUME 93.1 fl (80.0-96.0); MONO # 0.5 10^3/uL (0.0-0.8); MONO % 8.8 % (2.0-8.0); NEUTROPHILS % 50.2 % (36.0-66.0); PLATELET COUNT, AUTOMATED 249 10^3/uL (150-450); RED BLOOD COUNT 4.65 10^6/uL (4.00-5.40)
[2023-04-03 13:20] LABS: ALBUMIN 3.9 G/DL (3.2-5.2); ALKALINE PHOSPHATASE 73 U/L (46-116); ALT/SGPT 37 U/L (7.0-40); AST/SGOT 23 U/L (<34); BILIRUBIN,TOTAL 0.7 MG/DL (0.3-1.2); BLOOD UREA NITROGEN 31 MG/DL (9-23); CARBON DIOXIDE LEVEL 29 MMOL/L (20-31); CHLORIDE LEVEL 108 MMOL/L (98-107); CREATININE FOR GFR 0.76 MG/DL (0.55-1.30); GLOMERULAR FILTRATION RATE > 60.0 (>39); GLUCOSE, FASTING 91 MG/DL (74-106); POTASSIUM SERUM 4.4 MMOL/L (3.5-5.1); SODIUM LEVEL 142 MMOL/L (136-145); TOTAL PROTEIN 6.8 G/DL (5.7-8.2)
[2023-04-03 13:42] LABS: CA15-3 ANTIGEN 14.6 U/ML (<32.4)
== END ==
LOC: M PLALAB 11:47
PROVIDERS: ATTEND Specialist
DX: C50.919 Malignant neoplasm of unspecified site of unspecified female breast (principal)

== ENCOUNTER → 2023-04-10 | Outpatient (CLI) | payer MEDICARE, OTHER ==
[~2023-04-10] MED LIST changes: +OYST1TAB5 PO
== END ==
LOC: M PLAIMG 10:59
PROVIDERS: ATTEND Urology
DX: Z96.0 Presence of urogenital implants (principal)

== ENCOUNTER → 2023-06-20 | Outpatient (CLI) | payer MEDICARE, OTHER | LOC: M PLAIMG 09:31 | PROVIDERS: ATTEND Student in an Organized Health Care Education/Training Program | DX: S70.02XA Contusion of left hip, initial encounter (principal); W18.30XA Fall on same level, unspecified, initial encounter; Y92.009 Unspecified place in unspecified non-institutional (private) residence as the place of occurrence of the external cause ==

== ENCOUNTER → 2023-09-18 | Outpatient (CLI) | payer MEDICARE, OTHER ==
[2023-09-18 16:36] LABS: BASO % 0.4 % (0.0-1.0); EOS # 0.2 10^3/uL (0.0-0.5); HEMATOCRIT 44.2 % (36.0-47.0); HEMOGLOBIN 14.5 g/dl (12.0-15.5); LYMPH # 1.4 10^3/uL (1.5-5.0); MEAN CORPUSCULAR HEMOGLOBIN 31.1 pg (27.0-33.0); MEAN CORPUSCULAR HGB CONC 32.8 g/dl (32.0-36.5); MEAN CORPUSCULAR VOLUME 94.8 fl (80.0-96.0); MONO # 0.5 10^3/uL (0.0-0.8); MONO % 8.7 % (2.0-8.0); NEUTROPHILS # 3.2 10^3/uL (1.5-8.5); NEUTROPHILS % 59.9 % (36.0-66.0); PLATELET COUNT, AUTOMATED 262 10^3/uL (150-450); RED BLOOD COUNT 4.66 10^6/uL (4.00-5.40); WHITE BLOOD COUNT 5.3 10^3/uL (4.0-10.0)
[2023-09-18 17:09] LABS: ALBUMIN 4.1 G/DL (3.2-5.2); ALKALINE PHOSPHATASE 80 U/L (46-116); ALT/SGPT 33 U/L (7.0-40); AST/SGOT 21 U/L (<34); BILIRUBIN,TOTAL 0.6 MG/DL (0.3-1.2); BLOOD UREA NITROGEN 24 MG/DL (9-23); CALCIUM LEVEL 9.9 MG/DL (8.3-10.6); CARBON DIOXIDE LEVEL 28 MMOL/L (20-31); CHLORIDE LEVEL 106 MMOL/L (98-107); CREATININE FOR GFR 0.72 MG/DL (0.55-1.30); GLOMERULAR FILTRATION RATE > 60.0 (>39); GLUCOSE, FASTING 108 MG/DL (74-106); POTASSIUM SERUM 4.6 MMOL/L (3.5-5.1); SODIUM LEVEL 141 MMOL/L (136-145); TOTAL PROTEIN 6.9 G/DL (5.7-8.2)
== END ==
LOC: M PLALAB 11:26
PROVIDERS: ATTEND Specialist
DX: C50.911 Malignant neoplasm of unspecified site of right female breast (principal); C50.912 Malignant neoplasm of unspecified site of left female breast

== ENCOUNTER → 2023-10-06 | Outpatient (CLI) | payer MEDICARE, OTHER ==
[~2023-10-06] MED LIST changes: +OYST500T94
== END ==
LOC: M WHC 12:45
PROVIDERS: ATTEND Internal Medicine Hematology & Oncology
DX: M85.851 Other specified disorders of bone density and structure, right thigh (principal); M85.852 Other specified disorders of bone density and structure, left thigh; C50.919 Malignant neoplasm of unspecified site of unspecified female breast

== ENCOUNTER → 2024-03-18 | Outpatient (CLI) | payer MEDICARE, OTHER ==
[2024-03-18 13:58] LABS: BASO % 0.4 % (0.0-1.0); EOS # 0.1 10^3/uL (0.0-0.5); EOS % 2.1 % (0.0-3.0); HEMATOCRIT 44.6 % (36.0-47.0); HEMOGLOBIN 14.6 g/dl (12.0-15.5); LYMPH # 1.8 10^3/uL (1.5-5.0); LYMPH % 34.2 % (24.0-44.0); MEAN CORPUSCULAR HEMOGLOBIN 30.5 pg (27.0-33.0); MEAN CORPUSCULAR HGB CONC 32.7 g/dl (32.0-36.5); MEAN CORPUSCULAR VOLUME 93.3 fl (80.0-96.0); MONO # 0.4 10^3/uL (0.0-0.8); MONO % 8.2 % (2.0-8.0); NEUTROPHILS # 2.9 10^3/uL (1.5-8.5); NEUTROPHILS % 54.5 % (36.0-66.0); PLATELET COUNT, AUTOMATED 236 10^3/uL (150-450); RED BLOOD COUNT 4.78 10^6/uL (4.00-5.40); WHITE BLOOD COUNT 5.2 10^3/uL (4.0-10.0)
[2024-03-18 14:30] LABS: ALBUMIN 3.9 G/DL (3.2-5.2); ALKALINE PHOSPHATASE 84 U/L (35-104); ALT/SGPT 28 U/L (7.0-40); AST/SGOT 20 U/L (<34); BILIRUBIN,TOTAL 0.6 MG/DL (0.3-1.2); BLOOD UREA NITROGEN 26 MG/DL (9-23); CALCIUM LEVEL 9.8 MG/DL (8.3-10.6); CARBON DIOXIDE LEVEL 26 MMOL/L (20-31); CHLORIDE LEVEL 110 MMOL/L (98-107); CREATININE FOR GFR 0.76 MG/DL (0.55-1.30); GLOMERULAR FILTRATION RATE > 60.0 (>39); GLUCOSE, FASTING 116 MG/DL (74-106); POTASSIUM SERUM 3.8 MMOL/L (3.5-5.1); SODIUM LEVEL 146 MMOL/L (136-145)
[2024-03-18 14:47] LABS: CA15-3 ANTIGEN 16.7 U/ML (<32.4)
== END ==
LOC: M PLALAB 10:56
PROVIDERS: ATTEND Specialist
DX: C50.919 Malignant neoplasm of unspecified site of unspecified female breast (principal)

== ENCOUNTER → 2024-03-18 | Outpatient (CLI) | payer MEDICARE, OTHER | LOC: M PLAIMG 10:58 | PROVIDERS: ATTEND Urology | DX: N20.0 Calculus of kidney (principal); C50.919 Malignant neoplasm of unspecified site of unspecified female breast ==

== ENCOUNTER → 2024-04-19 | Outpatient (CLI) | payer MEDICARE, OTHER ==
[~2024-04-19] MED LIST changes: +CALCTAB41 PO; +MEMA10TA
[2024-04-19 11:48] LABS: HEMATOCRIT 43.9 % (36.0-47.0); HEMOGLOBIN 14.4 g/dl (12.0-15.5); MEAN CORPUSCULAR HGB CONC 32.8 g/dl (32.0-36.5); MEAN CORPUSCULAR VOLUME 94.4 fl (80.0-96.0); PLATELET COUNT, AUTOMATED 259 10^3/uL (150-450); RED BLOOD COUNT 4.65 10^6/uL (4.00-5.40); WHITE BLOOD COUNT 6.1 10^3/uL (4.0-10.0)
[2024-04-19 11:52] LABS: ALBUMIN 3.9 G/DL (3.2-5.2); ALKALINE PHOSPHATASE 85 U/L (35-104); ALT/SGPT 25 U/L (7.0-40); AST/SGOT 20 U/L (<34); BILIRUBIN,TOTAL 0.8 MG/DL (0.3-1.2); BLOOD UREA NITROGEN 20 MG/DL (9-23); CALCIUM LEVEL 9.4 MG/DL (8.3-10.6); CARBON DIOXIDE LEVEL 29 MMOL/L (20-31); CHLORIDE LEVEL 109 MMOL/L (98-107); CREATININE FOR GFR 0.75 MG/DL (0.55-1.30); GLOMERULAR FILTRATION RATE > 60.0 (>39); GLUCOSE, FASTING 96 MG/DL (74-106); POTASSIUM SERUM 4.4 MMOL/L (3.5-5.1); SODIUM LEVEL 146 MMOL/L (136-145); TOTAL PROTEIN 7.1 G/DL (5.7-8.2)
== END ==
LOC: M PLALAB 08:24
PROVIDERS: ATTEND Physician Assistant
DX: I10 Essential (primary) hypertension (principal)

== ENCOUNTER → 2024-09-16 | Outpatient (CLI) | payer MEDICARE, OTHER ==
[2024-09-16 13:28] LABS: BASO # 0.0 10^3/uL (0.0-0.2); BASO % 0.5 % (0.0-1.0); EOS # 0.1 10^3/uL (0.0-0.5); EOS % 2.0 % (0.0-3.0); LYMPH # 2.0 10^3/uL (1.5-5.0); LYMPH % 35.7 % (24.0-44.0); MONO # 0.5 10^3/uL (0.0-0.8); MONO % 9.1 % (2.0-8.0); NEUTROPHILS # 2.9 10^3/uL (1.5-8.5); NEUTROPHILS % 52.0 % (36.0-66.0); PLATELET COUNT, AUTOMATED 253 10^3/uL (150-450)
[2024-09-16 13:34] LABS: ALT/SGPT 22.0 U/L (7.0-40); AST/SGOT 20.0 U/L (<34); CALCIUM LEVEL 9.8 MG/DL (8.3-10.6); CARBON DIOXIDE LEVEL 28.0 MMOL/L (20-31); CHLORIDE LEVEL 105.0 MMOL/L (98-107); CREATININE FOR GFR 0.85 MG/DL (0.55-1.30); GLOMERULAR FILTRATION RATE 72.3 (>39); POTASSIUM SERUM 4.3 MMOL/L (3.5-5.1); SODIUM LEVEL 145.0 MMOL/L (136-145)
== END ==
LOC: M PLALAB 10:22
PROVIDERS: ATTEND Specialist
DX: C50.919 Malignant neoplasm of unspecified site of unspecified female breast (principal)

== ENCOUNTER → 2024-11-13 | Outpatient (CLI) | payer MEDICARE, OTHER ==
[~2024-11-13] MED LIST changes: -VITA500T17 PO; +VITA500T8 PO
== END ==
LOC: M PLAIMG 13:23
PROVIDERS: ATTEND Urology
DX: N20.0 Calculus of kidney (principal)